=== PATIENT | male | born 1965 | race Caucasian/White ===

== ENCOUNTER 2020-02-27 13:07 | Emergency (ER) | payer OTHER, SELFPAY ==
[2020-02-27 13:56] VITALS: BP 128/65; PULSE 81; RESP 16; TEMP 36.8; O2SAT 96; BMI 36.3
--- NOTE | 2020-02-27 14:15 | ED.URI ---
HPI - URI/Sore Throat General Chief Complaint: Upper Respiratory Symptoms Stated Complaint: sob,chest discomfort Time Seen by Provider: 02/27/20 14:15 Source: patient Mode of arrival: ambulatory Limitations: no limitations History of Present Illness MD elicited complaint: cough and other (chest tightness) Pertinent past history: asthma Onset (ago): day(s) (2) Consistency: constant Severity: moderate Description of mucous: clear Able to tolerate fluids by mouth: Yes Exacerbating factors: nothing Relieving factors: other (nebulizer) Context: sick contacts (family member unknown if they have COVID but exposed at work) Associated symptoms: cough, chest pain and shortness of breath Treatments prior to arrival: none Related Data Home Medications Medication Instructions Recorded Confirmed acetaminophen 500 mg capsule 500 mg PO Q6H PRN 01/28/20 01/28/20 diphenhydramine HCl 25 mg capsule 25 mg PO Q6H PRN 01/28/20 01/28/20 Previous Rx's Medication Instructions Recorded albuterol sulfate 90 mcg/actuation 2 puff INHALATION Q4-6H PRN 30 02/20/20 aerosol inhaler Days #8.5 g clonazepam 1 mg tablet 1 mg PO DAILY PRN 30 Days #30 tab 02/20/20 fluoxetine 20 mg capsule 20 mg PO DAILY 30 Days #30 cap 02/20/20 omeprazole 20 mg capsule,delayed 20 mg PO DAILY 30 Days #30 cap 02/20/20 release risperidone 1 mg tablet 1 mg PO BID 30 Days #60 tab 02/20/20 sildenafil 100 mg tablet 100 mg PO DAILY PRN 30 Days #10 tab 02/20/20 prednisone 40 mg PO DAILY 5 Days #10 tab 02/27/20 Allergies Allergy/AdvReac Type Severity Reaction Status Date / Time codeine [CODEINE] Allergy Intermediate RASH, Verified 02/12/20 14:08 shortness of breath ibuprofen [IBUPROFEN] Allergy Intermediate RASH/HIVES, Verified 02/12/20 14:08 redness and itching latex Allergy Unknown redness Verified 02/12/20 14:08 and itching Review of Systems Review of Systems: Constitutional : No Fever, No Chills ENT/Mouth : No sore throat, No Rhinorrhea, No Swallowing Difficulty Eyes: No Eye Pain, No Swelling, No Redness Cardiovascular : pos Chest Pain, positive SOB, No Orthopnea, no Edema Respiratory : No Cough, No Sputum, No Wheezing, positive dyspnea Gastrointestinal : No Nausea, No Vomiting, No Diarrhea, No abdominal Pain, No Hematochezia, No Melena Genitourinary : No Dysuria, No Urinary Frequency, No Hematuria Musculoskeletal : No joint pain, No Myalgias Skin : No Skin Lesions, No rash Neuro : No Weakness, No Numbness, No Dizziness, No Headache Psych : No Anxiety/Panic, No Depression Heme/Lymph: No Bruising, No Lymphadenopathy Endocrine : No Polyuria, No Polydipsia All other systems reviewed and are negative [facility] Past Medical History Attestation statement: The following information was validated with the patient. Medical History Anxiety Bipolar disorder Chronic low back pain Contusion of right lower leg, sequela Erectile dysfunction Genital herpes GERD (gastroesophageal reflux disease) Surgical History History of inguinal hernia repair Family History Family History Father Medical history unknown Mother Chronic mental illness Schizophrenia Family/Other FH: mental illness Social History Social History Smoking Status: Current every day smoker Cigarettes Per Day: 5 Substance Use Type: Marijuana Substance Use Frequency: Daily Advance Directives: No Advance Directives Information Provided: No Physical Exam Vital Signs: Vital Signs: Last Vital Signs Temp 98.4 F 02/27/20 15:45 Pulse 81 02/27/20 13:56 Resp 16 02/27/20 15:45 BP 147/74 H 02/27/20 15:45 Pulse Ox 96 02/27/20 15:45 Body Mass Index 36.3 Appearance: Alert. Oriented X3. No acute distress. Eyes: Pupils equal, round and reactive to light. ENT: Pharynx normal. Neck: Normal inspection. Neck supple. CVS: Normal heart rate and rhythm. Pulses normal. Respiratory: No respiratory distress. Breath sounds slightly decreased Abdomen: Soft and nontender. Skin: Skin warm and dry. Normal skin color. Normal skin turgor. Extremities: No lower extremity edema. No calf ttp Neuro: Oriented X 3. No motor deficit. No sensory deficit. Course Course Course Narrative: no acute findings at this time stable for DC [facility] - URI/Sore Throat MDM Narrative Medical decision making narrative: 54 yo male with hx of asthma possible COVID contacts - will need troponin, CXR< EKG, covid swab, start on steroids given reports of increased asthma - dispo per results and findings Lab Data Result diagrams: 02/27/20 15:26 02/27/20 15:26 Labs: Lab Results 02/27/20 02/27/20 02/27/20 Range/Units 15:26 15:26 15:26 WBC 9.0 (4.8-10.8) X10*3/uL RBC 5.71 (4.60-5.80) X10*6/uL Hgb 17.5 (14.0-18.0) g/dl Hct 51.8 (42-52) % MCV 90.7 (80-98) fL MCH 30.6 (27.0-33.0) pg MCHC 33.8 (31.0-36.0) g/dl RDW 12.7 (11.0-16.0) % Plt Count 264 (160-400) X10*3/uL MPV 9.2 L (9.4-12.4) fL Immature Gran % (Auto) 0.2 (0.0-0.4) % Neut % (Auto) 69.8 (45-73) % Lymph % (Auto) 18.2 L (20-40) % [place] % (Auto) 10.0 (2-11) % Eos % (Auto) 1.0 (0-4) % Baso % (Auto) 0.8 (0-2) % Lymph # (Auto) 1.6 (1.2-4.9) X10*3/uL [place] # (Auto) 0.9 (0.1-1.2) X10*3/uL Eos # (Auto) 0.1 (0.0-0.4) X10*3/uL Baso # (Auto) 0.1 (0.0-0.2) X10*3/uL Abs Immat Gran (auto) 0.02 (0.00-0.03) X10*3/uL Absolute Neuts (auto) 6.3 (2.0-8.3) X10*3/uL Absolute Nucleated RBC 0.000 (0.0-0.012) X10*3/uL Nucleated RBC % (auto) 0.0 (0.0-0.2) /100WBC Hold Blue Top SEE NOTE Sodium 137 (135-145) mmol/L Potassium 4.2 (3.3-5.1) mmol/l Chloride 106 (96-108) mmol/L Carbon Dioxide 23 (22-29) mmol/L Anion Gap 12 (12-20) BUN 10 (9-16) mg/dL Creatinine 0.96 (0.5-1.4) mg/dL Estim Creat Clear Calc 100.7 Estimated GFR > 60 Random Glucose 101 (60-115) mg/dL Calcium 9.0 (8.4-10.2) mg/dL Troponin I High Sens (<3.5-35.0) ng/L 02/27/20 Range/Units 15:26 WBC (4.8-10.8) X10*3/uL RBC (4.60-5.80) X10*6/uL Hgb (14.0-18.0) g/dl Hct (42-52) % MCV (80-98) fL MCH (27.0-33.0) pg MCHC (31.0-36.0) g/dl RDW (11.0-16.0) % Plt Count (160-400) X10*3/uL MPV (9.4-12.4) fL Immature Gran % (Auto) (0.0-0.4) % Neut % (Auto) (45-73) % Lymph % (Auto) (20-40) % [place] % (Auto) (2-11) % Eos % (Auto) (0-4) % Baso % (Auto) (0-2) % Lymph # (Auto) (1.2-4.9) X10*3/uL [place] # (Auto) (0.1-1.2) X10*3/uL Eos # (Auto) (0.0-0.4) X10*3/uL Baso # (Auto) (0.0-0.2) X10*3/uL Abs Immat Gran (auto) (0.00-0.03) X10*3/uL Absolute Neuts (auto) (2.0-8.3) X10*3/uL Absolute Nucleated RBC (0.0-0.012) X10*3/uL Nucleated RBC % (auto) (0.0-0.2) /100WBC Hold Blue Top Sodium (135-145) mmol/L Potassium (3.3-5.1) mmol/l Chloride (96-108) mmol/L Carbon Dioxide (22-29) mmol/L Anion Gap (12-20) BUN (9-16) mg/dL Creatinine (0.5-1.4) mg/dL Estim Creat Clear Calc Estimated GFR Random Glucose (60-115) mg/dL Calcium (8.4-10.2) mg/dL Troponin I High Sens < 3.5 (<3.5-35.0) ng/L ECG Data Attestation: I personally reviewed and interpreted this ECG as follows: ECG interpretation date: 02/27/20 ECG interpretation time: 15:26 Interpretation: Rate: 64 Rhythm: NSR [place]: normal Normal P waves. Normal [place]. Normal QRS complex. ST T wave : normal qTC:normal prior studies: no acute ischemia The study has been interpreted contemporaneously by me. . Discharge Plan Discharge Clinical Impression: Acute dyspnea Patient Disposition: Home, Self-Care Instructions: Chest Pain (ED), Shortness of Breath (ED) Additional Instructions: return to ED for any worsening symptoms or concerns you were tested for COVID we will call you with results in 2 to 4 days, wear a mask, socially distance your chest xray, heart markers in blood and EKG were normal Prescriptions: New prednisone 20 mg tablet 40 mg PO DAILY 5 Days Qty: 10 RF: 0 No Action albuterol sulfate 90 mcg/actuation HFA aerosol inhaler 2 puff inhalation Q4-6H PRN (Reason: shortness of breath or wheezing) 30 Days Qty: 8.5 RF: 0 fluoxetine [Prozac] 20 mg capsule 20 mg PO DAILY 30 Days Qty: 30 RF: 0 omeprazole 20 mg capsule,delayed release(DR/EC) 20 mg PO DAILY 30 Days Qty: 30 RF: 0 clonazepam 1 mg tablet 1 mg PO DAILY PRN (Reason: anxiety) 30 Days Qty: 30 RF: 0 sildenafil [Viagra] 100 mg tablet 100 mg PO DAILY PRN (Reason: sexual activity) 30 Days Qty: 10 RF: 0 risperidone [Risperdal] 1 mg tablet 1 mg PO BID 30 Days Qty: 60 RF: 0 diphenhydramine HCl 25 mg capsule 25 mg PO Q6H PRNRF: 0 acetaminophen 500 mg capsule 500 mg PO Q6H PRNRF: 0 Referrals: Keisha Leyva MD [Primary Care Provider] - 2 days (if not better) Stand Alone Forms: Work/School Release
--- NOTE | 2020-02-27 14:22 | ECG_ITS ---
Test Reason : SOB Blood Pressure : / mmHG Vent. Rate : 064 BPM Atrial Rate : 064 BPM P-R Int : 118 ms QRS Dur : 068 ms QT Int : 374 ms P-R-T Axes : 051 052 055 degrees QTc Int : 385 ms Normal sinus rhythm Normal ECG When compared with ECG of 24-JAN-2018 09:35, No significant change was found Referred By: Anita Murry Electronically Signed By:MARY LUU MD
--- NOTE | 2020-02-27 14:22 | XR_ITS ---
EXAMINATION: XR CHEST CLINICAL INFORMATION: Dyspnea. COMPARISON: 05/28/2017. TECHNIQUE: Frontal view of the chest was obtained. FINDINGS: No significant abnormality is noted involving the heart, lungs, mediastinum, bony thorax or soft tissues. XR/XR chest 1V IMPRESSION: No acute cardiopulmonary process.
[2020-02-27 15:34] LABS: MANUAL DIFF FLAG NO
[2020-02-27 15:37] LABS: Basophils Absolute Auto 0.1 X10*3/uL (0.0-0.2); Basophils Percent Auto 0.8 % (0-2); Eosinophils Absolute Auto 0.1 X10*3/uL (0.0-0.4); Hematocrit 51.8 % (42-52); Hemoglobin 17.5 g/dl (14.0-18.0); Imm Gran Abs Auto 0.02 X10*3/uL (0.00-0.03); Imm Gran Pct Auto 0.2 % (0.0-0.4); Lymphocytes Absolute Auto 1.6 X10*3/uL (1.2-4.9); Lymphocytes Percent Auto 18.2 % (20-40); Mean Corpuscular HGB Conc 33.8 g/dl (31.0-36.0); Mean Corpuscular Hemoglobin 30.6 pg (27.0-33.0); Mean Corpuscular Volume 90.7 fL (80-98); Mean Platelet Volume 9.2 fL (9.4-12.4); Monocytes Absolute Auto 0.9 X10*3/uL (0.1-1.2); Neutrophils Absolute Auto 6.3 X10*3/uL (2.0-8.3); Neutrophils Percent Auto 69.8 % (45-73); Platelet Count 264 X10*3/uL (160-400); Red Blood Count 5.71 X10*6/uL (4.60-5.80); Red Cell Distribution Width 12.7 % (11.0-16.0)
[2020-02-27] MEDS: predniSONE 20 MG TABLET 60 MG PO (15:43)
[2020-02-27 15:45] VITALS: BP 147/74; RESP 16; TEMP 36.9; O2SAT 96
[2020-02-27 16:01] LABS: Anion Gap 12 (12-20); Blood Urea Nitrogen 10 mg/dL (9-16); Carbon Dioxide 23 mmol/L (22-29); Chloride 106 mmol/L (96-108); Creatinine Clr Calc Pharmacy 100.7; Estimated Glomerular Filt Rate > 60; Glucose Random 101 mg/dL (60-115); Potassium 4.2 mmol/l (3.3-5.1); Sodium 137 mmol/L (135-145)
[2020-02-27 16:09] LABS: Troponin-I High Sensitivity < 3.5 ng/L (<3.5-35.0)
== END 2020-02-27 16:48 | disposition home or self-care (01) ==
PROVIDERS: Emergency Provider Emergency Medicine; PCP Internal Medicine
DX: R05 Cough (principal); R06.02 Shortness of breath; F12.90 Cannabis use, unspecified, uncomplicated; Z20.828 Contact with and (suspected) exposure to other viral communicable diseases; Z79.899 Other long term (current) drug therapy; F17.200 Nicotine dependence, unspecified, uncomplicated; Z71.6 Tobacco abuse counseling
CPT/HCPCS: 36415; 71045; 80048; 84484; 85025; 93005; 99283; 99284; U0003

== ENCOUNTER → 2020-05-29 09:38 | Outpatient (BNVA) | payer OTHER, SELFPAY | PROVIDERS: PCP Internal Medicine; Visit Provider Nurse Practitioner | DX: Z76.89 Persons encountering health services in other specified circumstances (principal) | CPT/HCPCS: Q3014 ==

== ENCOUNTER 2020-06-04 12:00 | Outpatient (REF) | payer OTHER, SELFPAY ==
--- NOTE | ~2020-06-04 | XR_ITS ---
EXAMINATION: XR KNEE, RIGHT CLINICAL INFORMATION: Pain in right knee COMPARISON: None TECHNIQUE: AP and lateral views of the right knee. FINDINGS: No fracture or dislocation. Increased suprapatellar soft tissue density is likely overlying soft tissues rather than a joint effusion. Medial and lateral compartment joint spaces are maintained. XR/XR knee RT 2V IMPRESSION: No acute osseous abnormality of the right knee.
--- NOTE | ~2020-06-04 | XR_ITS ---
EXAMINATION: XR CERVICAL SPINE CLINICAL INFORMATION: Cervicalgia COMPARISON: CT scan 10/04/2010 TECHNIQUE: 3 views of the cervical spine were obtained. FINDINGS: Dens is intact. Lateral masses are normally positioned. Lung apices are clear. Normal sagittal alignment. Normal prevertebral soft tissues. Mild loss of disc height at C5-C6 and C6-C7. Anterior disc calcification at these levels as well. No fracture or dislocation seen. XR/XR cervical spine 2V IMPRESSION: Degenerative disc disease at C5-C6 and C6-C7, new/progressed since 2010.
== END 2020-06-04 12:01 | disposition home or self-care (01) ==
LOC: HO.XRAY 12:00
PROVIDERS: PCP Nurse Practitioner Family; Visit Provider Nurse Practitioner Family
DX: M25.561 Pain in right knee (principal); M54.2 Cervicalgia
CPT/HCPCS: 72040; 73560

== ENCOUNTER 2020-07-01 11:55 | Outpatient (REF) | payer OTHER, SELFPAY | END 2020-07-01 11:56 | disposition home or self-care (01) | LOC: HO.LAB 11:55 | PROVIDERS: Visit Provider Internal Medicine | DX: Z20.822 Contact with and (suspected) exposure to COVID-19 (principal) | CPT/HCPCS: 36415; C9803; U0003; U0005 ==

== ENCOUNTER 2020-07-03 09:37 | Day surgery (SDC) | payer OTHER, SELFPAY ==
[2020-06-27 13:50] VITALS: BMI 33.2
--- NOTE | 2020-07-02 11:44 | P.CONAN_ITS ---
Documented by User: Indigo Packney 07/02/20 11:45 HPI - Anesthesia Eval Consult details Narrative: 54yo M for Upper Endoscopy and Colonoscopy [facility] Active Problems Active Problems: All Active Problems (Updated 06/07/20 @ 11:23 by Lucy Jewell NP) Anxiety and depression (Acute) Neurological signs (Acute) Polyarthralgia (Acute) Colon cancer screening (Acute) Knee pain, right (Acute) Cervical pain (Acute) Obesity (BMI 30-39.9) (Acute) Smoker (Acute) Epigastric pain (Acute) Right knee pain (Acute) Screening for colon cancer (Acute) Anxiety (Acute) Erectile dysfunction (Acute) GERD (gastroesophageal reflux disease) (Acute) Bipolar disorder (Acute) Genital herpes (Acute) Chronic low back pain (Acute) Status post fall (Acute) Strain of lumbar region (Acute) Thoracic myofascial strain (Acute) Contusion of right lower leg, sequela (Acute) Past Medical History Medical History Anxiety Anxiety and depression Bipolar disorder Cervical pain Chronic low back pain Contusion of right lower leg, sequela Epigastric pain Erectile dysfunction Genital herpes GERD (gastroesophageal reflux disease) Knee pain, right Neurological signs Obesity (BMI 30-39.9) Polyarthralgia Right knee pain Smoker Family History Family History Father Medical history unknown Mother Chronic mental illness Schizophrenia Diabetes Kidney problem Dialysis patient Family/Other FH: mental illness Surgical History Surgical History History of inguinal hernia repair Social History Social History Are you a primary healthcare marketer to a significant other at home: No Do you presently have visiting nurse or other home services: No Alcohol intake: never Smoking Status: Current every day smoker Tobacco Type: Cigarette Cigarettes Per Day: 1 Years Smoked: 40 Smoked in Last 30 Days: Yes Use of substances other than those prescribed or required for medical reasons: Yes Substance Use Type: Marijuana Substance Use Frequency: Daily Have you been hit, kicked, punched, or otherwise hurt by someone within the past year? If so, by whom?: No Advance Directives Information Provided: No Recently lost weight without trying: No Meds Allergies Allergy/AdvReac Type Severity Reaction Status Date / Time codeine [CODEINE] Allergy Intermediate RASH, Verified 05/29/20 09:39 shortness of breath ibuprofen [IBUPROFEN] Allergy Intermediate RASH/HIVES, Verified 05/29/20 09:39 redness and itching latex Allergy Intermediate redness Verified 06/27/20 13:53 and itching Home Medications Medication Instructions Recorded Confirmed Last Taken Type acetaminophen 500 mg capsule 500 mg PO Q6H PRN 01/28/20 06/27/20 Unknown History diphenhydramine HCl 25 mg capsule 25 mg PO Q6H PRN 01/28/20 06/27/20 Unknown Hi story ketorolac 0.5 % eye drops 0 drp OPHTHALMIC (EYE) 05/29/20 06/07/20 Unknown History Exam Exam Date and Time: July 02, 2020 1144 Height,Weight and Vital Signs: Height 5 ft 6 in Weight 93.44 kg Narrative Narrative: EKG 02/2020 Normal sinus rhythm Normal ECG When compared with ECG of 24-JAN-2018 09:35, No significant change was found Assessment and Plan Assessment Anesthesia Assessment: Chart Reviewed Documented by User: Meka Edmondson 07/03/20 10:08 [facility] Past Medical History Medical History Anxiety Anxiety and depression Bipolar disorder Cervical pain Chronic low back pain Contusion of right lower leg, sequela Epigastric pain Erectile dysfunction Genital herpes GERD (gastroesophageal reflux disease) Knee pain, right Neurological signs Obesity (BMI 30-39.9) Polyarthralgia Right knee pain Smoker Family History Family History Father Medical history unknown Mother Chronic mental illness Schizophrenia Diabetes Kidney problem Dialysis patient Family/Other FH: mental illness Surgical History Surgical History History of inguinal hernia repair Social History Social History Are you a primary healthcare marketer to a significant other at home: No Do you presently have visiting nurse or other home services: No Alcohol intake: never Smoking Status: Current every day smoker Tobacco Type: Cigarette Cigarettes Per Day: 1 Years Smoked: 40 Smoked in Last 30 Days: Yes Use of substances other than those prescribed or required for medical reasons: Yes Substance Use Type: Marijuana Substance Use Frequency: Daily Have you been hit, kicked, punched, or otherwise hurt by someone within the past year? If so, by whom?: No Advance Directives Information Provided: No Recently lost weight without trying: No Meds Allergies Allergy/AdvReac Type Severity Reaction Status Date / Time codeine [CODEINE] Allergy Intermediate RASH, Verified 05/29/20 09:39 shortness of breath ibuprofen [IBUPROFEN] Allergy Intermediate RASH/HIVES, Verified 05/29/20 09:39 redness and itching latex Allergy Intermediate redness Verified 06/27/20 13:53 and itching Home Medications Medication Instructions Recorded Confirmed Last Taken Type acetaminophen 500 mg capsule 500 mg PO Q6H PRN 01/28/20 06/27/20 Unknown History diphenhydramine HCl 25 mg capsule 25 mg PO Q6H PRN 01/28/20 06/27/20 Unknown History ketorolac 0.5 % eye drops 0 drp OPHTHALMIC (EYE) 05/29/20 06/07/20 Unknown History Exam Airway Mallampati Class: I TM Dist: >3cm Loose/Missing/Broken Teeth: No Heart: RRR Lungs: CTA Assessment and Plan Assessment Anesthesia Assessment: Anesthesia Plan Discussed and Chart Reviewed Final Anesthetic Review NPO: Yes ASA Class: II Final Preanesthetic Review: No Changes in Pt Med Stat, Meds/Allgs Chart Reviewed and Consent Obtained/Reviewed Patient Risk: Low Procedure Risk: Intermediate Anesthetic Plan Anesthetic Plan: MAC: Disposition: Standard PACU
[2020-07-03] VITALS (10 sets, daily range): BP systolic 83–115; BP diastolic 42–66; PULSE 57–67; RESP 16–18; TEMP 36.3–36.7; O2SAT 96–98
[2020-07-03] MEDS: Lactated Ringers 1,000 ML 100 ML IVCONT (10:05)
--- NOTE | 2020-07-03 10:30 | MHC.SHP ---
Pre-Procedural Eval Section B Chief Complaint: Screening, Epigastric Pain Relevant Family History (Specify if Yes): No Relevant Social History: Tobacco Use Present Medications: see Short Stay Collaborative assessment Medical History: Significant History (weight loss; abdominal pain) History of Previous Operations: No relevant previous surgery Allergies: Allergies Allergy/AdvReac Type Severity Reaction Status Date / Time codeine [CODEINE] Allergy Intermediate RASH, Verified 05/29/20 09:39 shortness of breath ibuprofen [IBUPROFEN] Allergy Intermediate RASH/HIVES, Verified 05/29/20 09:39 redness and itching latex Allergy Intermediate redness Verified 06/27/20 13:53 and itching Review of Systems Sugical H&P ROS: Negative: Cardiovascular, Respiratory, Integumentary and Endocrine and Yes, Specify: Constitution (weight loss) and Gastrointestinal (pain) Exam Surgical H&P Exam: Normal: HEENT, Normal: Heart, Normal: Lungs, Normal: Extremities, Normal: Abdomen, Normal: Skin and Normal: Neurological Plan Diagnosis/Plan: Unchanged I have reviewed the history and physical and performed a pertinent physical examination on my patient. No changes have occurred unless specified.yes
--- NOTE | 2020-07-03 11:15 | PM.OP ---
Brief Operative Note Date of Service: 07/03/20 Pre-op diagnosis: EGD: pain, weight loss>50#; Colon cancer screening. Post-op diagnosis: other (Superficial gastritis; Colon polyp) Procedure: EGD w/ bx; [place]: polyp excisional Implants: none Surgeon: Zahraa Moulton MD Anesthesia: MAC (Rocco Hanna CRNA) Estimated blood loss (mL): 5 Pathology: other (Random gastric, polyp) Condition: stable Disposition: PACU
--- NOTE | 2020-07-03 13:47 | W.PM.OPN ---
Operative Note Operative Note Date of Service: 07/03/20 Narrative: Pre-op diagnosis: EGD: pain, weight loss>50#; Colon cancer screening. Post-op diagnosis: other (Superficial gastritis; Colon polyp) Procedure: EGD w/ bx; [place]: polyp excisional Implants: none Surgeon: Zahraa Moulton MD Anesthesia: MAC (Rocco Hanna CRNA) FINDINGS: EGD:Video endoscope was introduced with no difficulty. Arytenoid cartilages appeared mildly edematous-minimal erythema. Esophageal mucosa was normal. GE junction was clear and distinct. On entering the stomach there was mild erythema of the body and antrum. Random gastric bx were obtained. Duodenal bulb and duodenum were normal. Scope was withdrawn patient; tolerated procedure well. COLO: MARY: Slight decrease sphincter tone. Prostate was normal. Adult slim colonoscope was introduced without difficulty, navigated through sigmoid, descending, transverse, ascending colon into the cecum. Appendiceal orifice was seen, ileocecal valve was seen. No lesions noted. PREP: Good to excellent. Withdrawing scope slowly, one flat polyp was identified and removed in the region rectosigmoid--18-20 cm. Removal was excisional with use cold bx forceps. ARV was clear. Estimated blood loss (mL): 5 Pathology: other (Random gastric; colon polyp) Condition: stable Disposition: PACU PLAN: Nothing noted on this exam explains patient's weight loss. Review of record available had shown no anemia, no other abnormalities. I do not see that abd CT has been done. Would like to see imaging of the pancreas, small bowel, repeat labs. He could have visceral hyperalgesia (seen in some pt with Bipolar disorder.) This is a dx of exclusion.) He will need in office followup. Repeat colon cancer screening to be considered in 5 years.
== END 2020-07-03 12:41 | disposition home or self-care (01) ==
PROVIDERS: PCP Nurse Practitioner Family; Visit Provider Internal Medicine Gastroenterology
PROC: (CPT 45380; principal; 2020-07-03 10:10)
DX: Z12.11 Encounter for screening for malignant neoplasm of colon (principal); K63.5 Polyp of colon; K29.30 Chronic superficial gastritis without bleeding; K21.9 Gastro-esophageal reflux disease without esophagitis; R63.4 Abnormal weight loss; F31.9 Bipolar disorder, unspecified; Z79.899 Other long term (current) drug therapy; Z91.040 Latex allergy status; Z88.8 Allergy status to other drugs, medicaments and biological substances; F17.210 Nicotine dependence, cigarettes, uncomplicated; F12.90 Cannabis use, unspecified, uncomplicated
CPT/HCPCS: 45380; 43239; 88305; 88342; J3010

== ENCOUNTER 2020-07-24 08:15 | Outpatient (REF) | payer OTHER, SELFPAY ==
[2020-07-24 09:38] LABS: Glucose Urine UA NEG (NEG); Leukocyte Esterase Urine NEG (NEG); Nitrite Urine NEG (NEG); PH 6.5 (5.0-8.0); Specific Gravity - Urine 1.025 (1.005-1.025); Urine Blood NEG (NEG); Urine Ketones NEG (NEG); Urine Protein NEG (NEG-TRACE)
[2020-07-24 09:43] LABS: MANUAL DIFF FLAG NO
[2020-07-24 09:45] LABS: Appearance Urine CLEAR; Color Urine YELLOW
[2020-07-24 09:49] LABS: Basophils Absolute Auto 0.1 X10*3/uL (0.0-0.2); Basophils Percent Auto 0.9 % (0-2); Eosinophils Absolute Auto 0.3 X10*3/uL (0.0-0.4); Eosinophils Percent Auto 3.2 % (0-4); Hematocrit 50.9 % (42-52); Hemoglobin 16.8 g/dl (14.0-18.0); Imm Gran Abs Auto 0.02 X10*3/uL (0.00-0.03); Imm Gran Pct Auto 0.2 % (0.0-0.4); Lymphocytes Absolute Auto 2.4 X10*3/uL (1.2-4.9); Mean Corpuscular Hemoglobin 30.9 pg (27.0-33.0); Mean Corpuscular Volume 93.7 fL (80-98); Mean Platelet Volume 9.9 fL (9.4-12.4); Monocytes Percent Auto 12.5 % (2-11); Neutrophils Absolute Auto 4.3 X10*3/uL (2.0-8.3); Neutrophils Percent Auto 53.2 % (45-73); Platelet Count 260 X10*3/uL (160-400); Red Blood Count 5.43 X10*6/uL (4.60-5.80); Red Cell Distribution Width 12.8 % (11.0-16.0)
[2020-07-24 10:09] LABS: Alanine Aminotransferase 23 U/L (0-40); Albumin Level 4.1 g/dL (3.5-5.0); Alkaline Phosphatase 78 U/L (39-117); Anion Gap 13 (12-20); Aspartate Amino Transferase 25 U/L (5-37); Bilirubin Total 0.7 mg/dL (0.0-1.0); Blood Urea Nitrogen 10 mg/dL (9-16); Carbon Dioxide 23 mmol/L (22-29); Chloride 107 mmol/L (96-108); Cholesterol 178 mg/dL; Estimated Glomerular Filt Rate > 60; Glucose Fasting 110 mg/dL (60-99); HDL Cholesterol 39 mg/dL; LDL Cholesterol Calculated 122 mg/dl; Potassium 3.9 mmol/L (3.3-5.1); Sodium 139 mmol/L (135-145); Total Protein 6.6 g/dL (6.5-8.0); Triglycerides 87 mg/dL
[2020-07-24 10:21] LABS: TSH reflex Free T4 0.79 uIU/mL (0.32-4.0)
== END 2020-07-24 08:16 | disposition home or self-care (01) ==
LOC: HO.LAB 08:15
PROVIDERS: PCP Internal Medicine; Visit Provider Internal Medicine
DX: K29.30 Chronic superficial gastritis without bleeding (principal); R63.4 Abnormal weight loss; R10.13 Epigastric pain; E78.2 Mixed hyperlipidemia; K21.9 Gastro-esophageal reflux disease without esophagitis; E66.9 Obesity, unspecified; F17.210 Nicotine dependence, cigarettes, uncomplicated; Z88.5 Allergy status to narcotic agent; Z88.6 Allergy status to analgesic agent; Z91.040 Latex allergy status
CPT/HCPCS: 36415; 80053; 80061; 81003; 84443; 85025; Q3014

== ENCOUNTER → 2020-08-06 07:54 | Outpatient (REF) | payer OTHER, SELFPAY ==
--- NOTE | ~2020-08-06 | NM_ITS ---
EXAMINATION: NM RADIONUCLIDE SOLID FOOD GASTRIC EMPTYING 4-HOUR STUDY CLINICAL INFORMATION: Pain COMPARISON: None TECHNIQUE: A standard meal consisting of 4 oz of Egg Beaters brand tagged with 750 microcuries Tc-99m Sulfur Colloid, 8 oz water and 2 slices of toast with jelly was administered orally to the patient. Images were obtained using a dual head gamma camera in the anterior and posterior projections over of the stomach immediately post ingestion and at hourly intervals up to 4 hours post ingestion. The anterior and posterior counts at each time interval were averaged using the geometric mean and expressed as percentage of the immediate post ingestion counts. FINDINGS: There is good visualization of activity in the stomach immediately post ingestion. As the study progresses, there is good clearance of activity from the stomach and visualization of progressively increasing small bowel activity. By the end of the study, there is almost no retention noted in the stomach. Retention in the stomach at each time interval was: 1 hour 54% (normal 37%-90%) 2 hours 17% (normal 30%-60%) 3 hours 4% 4 hour image not obtained NM/NM gastric emptying study IMPRESSION: Prompt gastric emptying. No scintigraphic evidence for delayed gastric emptying
== END ==
LOC: HO.NUCMED 07:54
PROVIDERS: PCP Internal Medicine; Visit Provider Nurse Practitioner
DX: R10.13 Epigastric pain (principal)
CPT/HCPCS: 78264; A9541

== ENCOUNTER → 2020-08-13 10:15 | Outpatient (BNVA) | payer OTHER, SELFPAY | PROVIDERS: PCP Internal Medicine; Visit Provider Nurse Practitioner ==

== ENCOUNTER → 2020-08-15 14:05 | Outpatient (BNVA) | payer OTHER, SELFPAY | PROVIDERS: PCP Internal Medicine; Visit Provider Internal Medicine Endocrinology, Diabetes & Metabolism | DX: R63.4 Abnormal weight loss (principal) | CPT/HCPCS: 99202 ==

== ENCOUNTER 2020-08-16 07:31 | Outpatient (REF) | payer OTHER, SELFPAY ==
[2020-08-16 09:45] LABS: Prostate Specific Antigen Scr 0.19 ng/mL (<0.05-4.0)
[2020-08-16 09:51] LABS: Free T4 (Free Thyroxine) 0.91 ng/dL (0.71-1.85); Thyroid Stimulating Hormone 1.19 uIU/mL (0.32-4.0)
[2020-08-17 08:17] LABS: Follicle Stimulating Hormone 9.3 mIU/mL (1.6-8.0); Prolactin 22.9 ng/mL (2.0-18.0); Triiodothyronine T3 Total 97 ng/dL (76-181)
[2020-08-18 15:17] LABS: DHEA Sulfate 205 mcg/dL (38-313); Sex Hormone Binding Globulin 46 nmol/L (10-50)
[2020-08-18 21:41] LABS: Adrenocorticotropic Hormone 112 pg/mL (6-50)
[2020-08-18 22:57] LABS: Gliadin Deamidated IgA Ab 20 Units; Gliadin Deamidated IgG Ab 5 Units
[2020-08-21 16:11] LABS: Testosterone, Free 76.8 pg/mL (35.0-155.0); Testosterone, Total 526 ng/dL (250-1100)
[2020-08-22 14:22] LABS: IGF-1 (Somatomedin C) 80 ng/mL (50-317); IGF-1 Z Score (Male) -1.1 SD (-2.0 - +2.0)
[2020-08-26 11:37] LABS: Endomysial IgA Antibody Negative (Negative)
== END 2020-08-16 07:32 | disposition home or self-care (01) ==
LOC: HO.LAB 07:31
PROVIDERS: Internal Medicine; Absent Provider Internal Medicine; PCP Internal Medicine; Visit Provider Internal Medicine Endocrinology, Diabetes & Metabolism
DX: Z12.5 Encounter for screening for malignant neoplasm of prostate (principal); R63.4 Abnormal weight loss; N52.9 Male erectile dysfunction, unspecified
CPT/HCPCS: 36415; 82024; 82533; 82627; 83001; 83002; 83516; 84146; 84153; 84270; 84305; 84402; 84403; 84439; 84443; 84480; 86255; 86256

== ENCOUNTER 2020-08-27 07:55 | Outpatient (REF) | payer OTHER, SELFPAY ==
[2020-08-28 08:16] LABS: Prolactin 19.3 ng/mL (2.0-18.0)
[2020-08-28 22:52] LABS: Adrenocorticotropic Hormone 89 pg/mL (6-50)
== END 2020-08-27 07:56 | disposition home or self-care (01) ==
LOC: HO.LAB 07:55
PROVIDERS: PCP Internal Medicine; Visit Provider Internal Medicine Endocrinology, Diabetes & Metabolism
DX: R63.4 Abnormal weight loss (principal)
CPT/HCPCS: 36415; 82024; 82533; 84146

== ENCOUNTER 2020-09-03 12:45 | Outpatient (REF) | payer OTHER, SELFPAY ==
--- NOTE | ~2020-09-03 | XR_ITS ---
EXAMINATION: XR CHEST CLINICAL INFORMATION: Abnormal weight loss COMPARISON: Previous chest x-ray most recent February [address] March 2018 TECHNIQUE: 2 views of the chest were obtained. FINDINGS: The cardiac and mediastinal contours are normal. The lungs are clear. There is no pleural effusion or pneumothorax. Bony structures are normal. XR/XR chest 2V IMPRESSION: Unremarkable examination.
== END 2020-09-03 12:46 | disposition home or self-care (01) ==
LOC: HO.XRAY 12:45
PROVIDERS: PCP Internal Medicine; Visit Provider Internal Medicine
DX: R63.4 Abnormal weight loss (principal); R68.81 Early satiety; F17.200 Nicotine dependence, unspecified, uncomplicated
CPT/HCPCS: 71046

== ENCOUNTER 2020-09-12 07:19 | Outpatient (REF) | payer OTHER, SELFPAY ==
[2020-09-15 18:42] LABS: Gliadin Deamidated IgA Ab 20 Units; Gliadin Deamidated IgG Ab 5 Units
[2020-09-17 12:26] LABS: Dexamethasone 556 ng/dL
[2020-09-18 12:21] LABS: Endomysial IgA Antibody Negative (Negative)
[2020-09-18 23:21] LABS: Adrenocorticotropic Hormone <5 pg/mL (6-50)
== END 2020-09-12 07:20 | disposition home or self-care (01) ==
LOC: HO.LAB 07:19
PROVIDERS: PCP Internal Medicine; Visit Provider Internal Medicine Endocrinology, Diabetes & Metabolism
DX: E27.0 Other adrenocortical overactivity (principal); R68.81 Early satiety; R63.4 Abnormal weight loss
CPT/HCPCS: 36415; 80299; 82024; 82533; 83516; 86255; 86256

== ENCOUNTER 2020-09-23 18:15 | Outpatient (REF) | payer OTHER, SELFPAY ==
--- NOTE | ~2020-09-23 | MR_ITS ---
EXAMINATION: MR CERVICAL SPINE WITHOUT CONTRAST CLINICAL INFORMATION: Cervical disc disorder. Self-reported bilateral upper extremity pain. COMPARISON: Cervical spine radiographs 06/04/2020. Report CT cervical spine 10/04/2020. MRI brain 07/23/2020. TECHNIQUE: MRI of the cervical spine was obtained using routine sequences without contrast. FINDINGS: VERTEBRAL BODIES AND PARASPINAL SOFT TISSUES: Straightening of the normal cervical lordosis is noted. No suspicious marrow abnormalities or vertebral body compression deformities are identified. Partial visualization is made of a well-circumscribed rounded T2 hyperintensity measuring 1.4 cm in diameter in the region of the right parasagittal nasopharynx which may represent a prominent mucosal retention cyst. CERVICOMEDULLARY JUNCTION AND VISUALIZED POSTERIOR FOSSA: Normal. SPINAL LEVELS: C2-C3: No central or foraminal stenoses. Normal intervertebral disc height. C3-C4: Mild central stenosis secondary to a mild posterior broad-based disc-osteophyte complex. C4-C5: Moderate central stenosis secondary to a moderate posterior broad-based disc-osteophyte complex partially effacing the ventral thecal sac CSF space associated with posterior displacement and mild AP deformation of the adjacent spinal cord without direct spinal cord impingement. C5-C6: Marked bilateral foraminal stenoses. Moderate central stenosis. Findings arise in the setting of a moderate posterior broad-based disc-osteophyte complex with bilateral uncovertebral joint incorporation and approximately 75% bilateral foraminal stenoses in association with mild bilateral facet hypertrophic changes. Approximately 50-75% overall loss of intervertebral disc height is noted. C6-C7: Moderate bilateral foraminal stenoses. Mild central stenosis. Findings arise in the setting of a moderate posterior broad-based disc-osteophyte complex with approximately 50% bilateral foraminal narrowing and minimal effacement of the ventral thecal sac CSF space. Approximately 50-75% overall loss of intervertebral disc height is noted. C7-T1: No central or foraminal stenoses. Minimal bilateral uncovertebral joint disc-osteophyte complexes. MR/MR cervical spine wo con IMPRESSION: 1. Multilevel chronic spondylosis of the cervical spine with significant findings as noted below. 2. C5-C6 marked bilateral foraminal stenoses with probable bilateral C6 nerve root impingement. 3. C6-C7 moderate bilateral foraminal stenoses with possible bilateral C7 nerve root impingement. 4. C4-C5 and C5-C6 moderate central stenoses without direct spinal cord impingement.
--- NOTE | ~2020-09-23 | MR_ITS ---
EXAMINATION: MR LUMBAR SPINE WITHOUT CONTRAST CLINICAL INFORMATION: Low back pain. COMPARISON: Lumbar spine radiographs 10/08/2019. MRI lumbar spine 09/26/2013. TECHNIQUE: MRI of the lumbar spine was obtained using routine sequences without contrast. FINDINGS: VERTEBRAL BODIES AND PARASPINAL STRUCTURES: 4 lumbar-type vertebral bodies are identified with partial bilateral sacralization of the presumed L5 vertebral body. Vertebral body height, alignment and marrow signal are normal in appearance aside from minimal multilevel anterior endplate discogenic marrow changes. CONUS MEDULLARIS AND CAUDA EQUINA: Normal, terminating at the level of T12. SPINAL LEVELS: T12-L1: Normal L1-L2: Normal L2-L3: Normal L3-L4: Mild bilateral parasagittal, intraforaminal and extraforaminal disc protrusions slightly increased in size compared with 09/26/2013 resulting in mild (less than 50%) bilateral foraminal narrowing with minimal abutment upon the left and right L3 dorsal root ganglia (series 5 image 13). Additionally, mild bilateral ligamentum flavum hypertrophy is noted. L4-L5: No change compared with 09/26/2013. Minimal posterior broad-based disc bulge. L5-S1: No change compared with 09/26/2013. Minimal posterior broad-based disc bulge. MR/MR lumbar spine wo con IMPRESSION: L3-L4 mild bilateral parasagittal, intraforaminal and extraforaminal disc protrusions slightly increased in size compared with 09/26/2013 resulting in mild bilateral L3 dorsal root ganglion impingement. Elsewhere in the lumbar spine, minimal multilevel chronic spondylosis is present and unchanged compared with 09/26/2013.
== END 2020-09-23 18:16 | disposition home or self-care (01) ==
LOC: HO.MRI 18:15
PROVIDERS: PCP Internal Medicine; Visit Provider Internal Medicine
DX: M50.90 Cervical disc disorder, unspecified, unspecified cervical region (principal); M54.5 Low back pain; G89.29 Other chronic pain; R63.4 Abnormal weight loss
CPT/HCPCS: 72141; 72148

== ENCOUNTER → 2020-09-25 10:09 | Outpatient (BNVA) | payer OTHER, SELFPAY | PROVIDERS: PCP Internal Medicine; Visit Provider Nurse Practitioner | DX: K63.89 Other specified diseases of intestine (principal) | CPT/HCPCS: 99212 ==

== ENCOUNTER 2020-10-01 18:15 | Emergency (ER) | payer OTHER, SELFPAY ==
--- NOTE | ~2020-10-01 | XR_ITS ---
EXAMINATION: XR CHEST CLINICAL INFORMATION: Shortness of breath COMPARISON: Multiple prior chest radiographs dating back to 05/28/[address] dated 03/14/2018. TECHNIQUE: Frontal view of the chest was obtained. FINDINGS: There is some minimal left basilar atelectasis is present but no other significant abnormality is noted involving the heart, lungs, mediastinum, bony thorax or soft tissues. XR/XR chest 1V IMPRESSION: Unremarkable examination. Minimal left basilar atelectasis.
[2020-10-01 18:31] VITALS: BP 117/67; PULSE 76; RESP 18; TEMP 36.6; O2SAT 99; BMI 29.8
--- NOTE | 2020-10-01 18:37 | ECG_ITS ---
Test Reason : REACTION TO MEDS Blood Pressure : / mmHG Vent. Rate : 065 BPM Atrial Rate : 065 BPM P-R Int : 122 ms QRS Dur : 080 ms QT Int : 364 ms P-R-T Axes : 045 055 053 degrees QTc Int : 378 ms Normal sinus rhythm Early repolarization Normal ECG When compared with ECG of 27-FEB-2020 15:16, No significant change was found Referred By: Generic ED Physician Electronically Signed By:Cornelius Mejia
[2020-10-01 19:20] LABS: MANUAL DIFF FLAG NO
[2020-10-01 19:24] LABS: Basophils Absolute Auto 0.1 X10*3/uL (0.0-0.2); Basophils Percent Auto 0.5 % (0-2); Eosinophils Absolute Auto 0.2 X10*3/uL (0.0-0.4); Eosinophils Percent Auto 2.4 % (0-4); Hematocrit 45.1 % (42-52); Hemoglobin 15.1 g/dl (14.0-18.0); Imm Gran Abs Auto 0.05 X10*3/uL (0.00-0.03); Imm Gran Pct Auto 0.5 % (0.0-0.4); Lymphocytes Absolute Auto 1.5 X10*3/uL (1.2-4.9); Lymphocytes Percent Auto 15.6 % (20-40); Mean Corpuscular HGB Conc 33.5 g/dl (31.0-36.0); Mean Corpuscular Hemoglobin 31.4 pg (27.0-33.0); Mean Corpuscular Volume 93.8 fL (80-98); Mean Platelet Volume 9.4 fL (9.4-12.4); Monocytes Absolute Auto 0.9 X10*3/uL (0.1-1.2); Neutrophils Absolute Auto 7.1 X10*3/uL (2.0-8.3); Platelet Count 221 X10*3/uL (160-400); Red Blood Count 4.81 X10*6/uL (4.60-5.80); Red Cell Distribution Width 13.1 % (11.0-16.0); White Blood Count 9.9 X10*3/uL (4.8-10.8)
[2020-10-01 19:51] LABS: Anion Gap 10 (12-20); Blood Urea Nitrogen 13 mg/dL (9-16); Calcium 8.9 mg/dL (8.4-10.2); Carbon Dioxide 29 mmol/L (22-29); Chloride 104 mmol/L (96-108); Creatinine Clr Calc Pharmacy 97.5; Estimated Glomerular Filt Rate > 60; Glucose Random 141 mg/dL (60-115); Potassium 4.3 mmol/L (3.3-5.1); Sodium 139 mmol/L (135-145)
[2020-10-01 19:56] LABS: B Type Natriuretic Peptide 45 pg/mL (<100); Troponin-I High Sensitivity < 3.5 ng/L (<3.5-35.0)
== END 2020-10-01 22:36 | disposition left against medical advice (07) ==
PROVIDERS: Emergency Provider Emergency Medicine; PCP Internal Medicine
DX: R51.9 Headache, unspecified (principal); H53.8 Other visual disturbances; R06.02 Shortness of breath
CPT/HCPCS: 36415; 71045; 80048; 83880; 84484; 85025; 93005; 99283

== ENCOUNTER → 2020-10-23 10:16 | Outpatient (BNVA) | payer MEDICARE, MEDICAID, SELFPAY | PROVIDERS: PCP Internal Medicine; Visit Provider Internal Medicine Endocrinology, Diabetes & Metabolism | DX: Z13.89 Encounter for screening for other disorder (principal) | CPT/HCPCS: Q3014 ==

== ENCOUNTER 2021-01-21 07:46 | Emergency (ER) | payer OTHER, SELFPAY ==
--- NOTE | ~2021-01-21 | XR_ITS ---
EXAMINATION: XR CHEST CLINICAL INFORMATION: SOB and cough. Covid exposure. COMPARISON: Chest 10/28/2020 TECHNIQUE: Frontal view of the chest was obtained. FINDINGS: The lungs are well-expanded and clear of acute process. Heart size and pulmonary vascularity is normal. No gross bony abnormality seen. XR/XR chest 1V IMPRESSION: Unremarkable chest examination.
[2021-01-21 08:00] VITALS: BP 132/72; PULSE 75; RESP 18; TEMP 36.6; O2SAT 98; BMI 32.1
--- NOTE | 2021-01-21 08:12 | ED.GENADULT ---
HPI - General Adult General Chief complaint: Upper Respiratory Symptoms Stated complaint: sore throat Time Seen by Provider: 01/21/21 07:58 Source: patient Mode of arrival: ambulatory Limitations: no limitations History of Present Illness HPI narrative: Patient comes to the emergency room complaining generalized malaise, sore throat. Patient complaining of chills, no fever. Patient states that he recently returned from floor. Patient went to visit his daughter, patient's son-in-law is currently hospitalized in [place] and about to get intubated, sick with COVID-19 Related Data Home Medications Medication Instructions Recorded Confirmed acetaminophen 500 mg capsule 500 mg PO Q6H PRN 01/28/20 10/23/20 diphenhydramine HCl 25 mg capsule 25 mg PO Q6H PRN 01/28/20 10/23/20 diphenhydramine HCl 25 mg capsule 25 mg PO Q8H PRN cap 09/25/20 10/23/20 (Banophen) Previous Rx's Medication Instructions Recorded albuterol sulfate 90 mcg/actuation 2 puff INHALATION Q4-6H PRN 30 04/13/20 aerosol inhaler Days #8.5 g cyclobenzaprine 10 mg tablet 10 mg PO BEDTIME 30 Days #30 tab 05/16/20 baclofen 10 mg tablet 10 mg PO BID PRN #60 tab 08/09/20 fluoxetine 20 mg capsule 20 mg PO DAILY 90 Days #90 cap 09/09/20 metronidazole 500 mg tablet 500 mg PO TID 10 Days #30 tab 09/25/20 (Flagyl) back brace #1 ea 10/01/20 cane #1 ea 10/01/20 miscellaneous medical supply #1 ea 10/01/20 miscellaneous medical supply 1 ea MISCELLANEOUS DAILY #1 ea 10/01/20 oxycodone 10 mg tablet 10 mg PO BID PRN 7 Days #14 tab 10/13/20 pantoprazole 40 mg tablet,delayed 40 mg PO BID #60 tab 10/21/20 release sildenafil 100 mg tablet (Viagra) 100 mg PO DAILY PRN 30 Days #10 tab 10/27/20 valacyclovir 1 gram tablet 1,000 mg PO Q8H 7 Days #21 tab 10/28/20 (Valtrex) risperidone 1 mg tablet 1 mg PO BID 90 Days #180 tab 11/05/20 clonazepam 1 mg tablet 1 mg PO DAILY PRN 30 Days #30 tab 11/09/20 amoxicillin 500 mg-potassium 1 tab PO BID #20 tab 01/21/21 clavulanate 125 mg tablet (Augmentin) Allergies Allergy/AdvReac Type Severity Reaction Status Date / Time codeine [CODEINE] Allergy Intermediate RASH, Verified 10/01/20 18:31 shortness of breath ibuprofen [IBUPROFEN] Allergy Intermediate RASH/HIVES, Verified 10/01/20 18:31 redness and itching latex Allergy Intermediate redness Verified 10/01/20 18:31 and itching Review of Systems Review of Systems: Constitutional : No Weight loss, of chills ENT/Mouth : No Hearing loss, No Ear Pain, No Nasal Congestion, No Sinus Pain, No Hoarseness, No sore throat, No Rhinorrhea, No Swallowing Difficulty, complaining of blisters in his lips Eyes: No Eye Pain, No Swelling, No Redness, No Foreign Body, No Discharge, No Vision Changes Cardiovascular : Chest pain only with coughing, at this time no coughing/shortness of breath/chest pain, No SOB, No Dyspnea on Exertion, No Orthopnea, No Edema, No Palpitations Respiratory : No Cough, No Sputum, No Wheezing, No Smoke Exposure, No Dyspnea Gastrointestinal : No Nausea, No Vomiting, No Diarrhea, No Constipation, No abdominal Pain, No Hematochezia, No Melena Genitourinary : no irregular bleeding, No Dysuria, No Urinary Frequency, No Hematuria, No Urinary Incontinence, No Urgency, No Flank Pain, No Urinary Flow Changes, No Hesitancy Musculoskeletal : No joint pain, No Myalgias, No Joint Swelling Skin : No Skin Lesions, No rash Neuro : No Weakness, No Numbness, No Paresthesias, No Loss of Consciousness, No Dizziness, complaining of Headache Psych : No Anxiety/Panic, No Depression, No SI/HI/AH/VH, No Social Issues, Heme/Lymph: No Bruising, No Bleeding,No Lymphadenopathy Endocrine : No Polyuria, No Polydipsia, No Temperature Intolerance PMFSH Past Medical History Medical History Anxiety Anxiety and depression Bipolar disorder Cataracts, bilateral Cervical disc disease Cervical pain Chronic low back pain Contusion of right lower leg, sequela Early satiety Elevation of adrenocorticotropic hormone (ACTH) Epigastric pain Erectile dysfunction Genital herpes GERD (gastroesophageal reflux disease) Knee pain, right Mixed hyperlipidemia Neurological signs Obesity (BMI 30-39.9) Overweight (BMI 25.0-29.9) Polyarthralgia Right knee pain Smoker Superficial gastritis without hemorrhage Weight loss, non-intentional Surgical History H/O eye surgery History of esophagogastroduodenoscopy (EGD) History of inguinal hernia repair Hx of colonoscopy Family History Family History Father Medical history unknown Mother Chronic mental illness Schizophrenia Diabetes Kidney problem Dialysis patient HTN (hypertension) Family/Other FH: mental illness Maternal Grandfather Prostate cancer Paternal Grandfather Lung cancer Social History Social History Household Members: None Are you a primary healthcare customer service to a significant other at home: No Do you presently have visiting nurse or other home services: No Alcohol intake: never Patient Tobacco Use Status: Current everyday Tobacco user Tobacco use type: Cigarette Cigarettes Per Day: 3 Years Smoked: 40 Advance Directives: No Advance Directives Information Provided: No Current occupational status: disabled Physical Exam Vital Signs: Vital Signs: Last Vital Signs Temp 97.8 F 01/21/21 08:00 Pulse 62 01/21/21 08:52 Resp 16 01/21/21 08:52 BP 118/61 01/21/21 08:52 Pulse Ox 98 01/21/21 08:52 Body Mass Index 32.1 Const: Other: Appearance: Alert. Oriented X3. No acute distress. Eyes: Pupils equal, round and reactive to light. ENT: Pharynx normal. Small vesicles in the lower lobes, not in oropharynx, tonsillar enlargement without exudates, no blocking the airway Neck: Normal inspection. Neck supple. No lymph nodes noted. No crepitus CVS: Normal heart rate and rhythm. Pulses normal. Normal S1 and S2 Respiratory: No respiratory distress. Breath sounds normal. No Wheezing. No rales Abdomen: Soft and nontender. No rigidity. No distention. Skin: Skin warm and dry. Normal skin color. Normal skin turgor. Extremities: No lower extremity edema. No lower extremity edema. No Lacerations. No Rash Neuro: Oriented X 3. No motor deficit. No sensory deficit. Moving all extermities. No slurred speech. Course Course Course Narrative: I discussed the labs with the patient, patient tested positive for strep, negative for COVID. Patient will be given a prescription and he will follow up with his primary care physician. Medical Decision Making Lab Data Labs: Lab Results 01/21/21 01/21/21 Range/Units 09:16 09:16 COVID-19 ([facility]) Negative (Negative) COVID-19 Clin Com See Note S. pyogenes GrpA ELIAZAR Positive A (Negative) Imaging Data Chest x-ray: Radiologist's impression: FINDINGS: The lungs are well-expanded and clear of acute process. Heart size and pulmonary vascularity is normal. No gross bony abnormality seen. XR/XR chest 1V IMPRESSION: Unremarkable chest examination. ? Discharge Plan Discharge Clinical Impression: Strep pharyngitis Patient Disposition: Home, Self-Care Instructions: Pharyngitis (ED) Additional Instructions: You need a toothbrush after you finish her antibiotics. Please follow-up with your primary care physician tomorrow. If you have any worsening or new symptoms, please return to the emergency room or call 911 Prescriptions: New amoxicillin-pot clavulanate [Augmentin] 500-125 mg tablet 1 tab PO BID Qty: 20 RF: 0 No Action albuterol sulfate 90 mcg/actuation HFA aerosol inhaler 2 puff inhalation Q4-6H PRN (Reason: shortness of breath or wheezing) 30 Days Qty: 8.5 RF: 0 baclofen 10 mg tablet 10 mg PO BID PRN (Reason: for muscle spasm) Qty: 60 RF: 0 (DME) miscellaneous medical supply Misc See Rx Instructions .ROUTE .MEDSUPPLY Qty: 1 RF: 0 (DME) cane Device See Rx Instructions .ROUTE .MEDSUPPLY Qty: 1 RF: 0 (DME) back brace Misc See Rx Instructions .ROUTE .MEDSUPPLY Qty: 1 RF: 0 miscellaneous medical supply Misc 1 ea miscellaneous DAILY Qty: 1 RF: 0 oxycodone 10 mg tablet 10 mg PO BID PRN (Reason: pain) 7 Days Qty: 14 RF: 0 pantoprazole 40 mg tablet,delayed release (DR/EC) 40 mg PO BID Qty: 60 RF: 3 sildenafil [Viagra] 100 mg tablet 100 mg PO DAILY PRN (Reason: sexual activity) 30 Days Qty: 10 RF: 1 valacyclovir [Valtrex] 1 gram tablet 1,000 mg PO Q8H 7 Days Qty: 21 RF: 0 risperidone 1 mg tablet 1 mg PO BID 90 Days Qty: 180 RF: 3 clonazepam 1 mg tablet 1 mg PO DAILY PRN (Reason: anxiety) 30 Days Qty: 30 RF: 0 diphenhydramine HCl 25 mg capsule 25 mg PO Q6H PRN (Reason: Anxiety) RF: 0 acetaminophen 500 mg capsule 500 mg PO Q6H PRN (Reason: Pain) RF: 0 cyclobenzaprine 10 mg tablet 10 mg PO BEDTIME 30 Days Qty: 30 RF: 0 fluoxetine 20 mg capsule 20 mg PO DAILY 90 Days Qty: 90 RF: 1 diphenhydramine HCl [Banophen] 25 mg capsule 25 mg PO Q8H PRNRF: 0 metronidazole [Flagyl] 500 mg tablet 500 mg PO TID 10 Days Qty: 30 RF: 0
[2021-01-21 08:52] VITALS: BP 118/61; PULSE 62; RESP 16; O2SAT 98
[2021-01-21 09:31] LABS: IDNOW Serial# 9DD0AD1C; Strep A Nucleic Acid Positive (Negative)
[2021-01-21] MEDS: Acetaminophen 325 MG TABLET 650 MG PO (09:40)
[2021-01-21 09:49] LABS: COVID-19 Test Negative (Negative)
== END 2021-01-21 10:32 | disposition home or self-care (01) ==
PROVIDERS: Emergency Provider Emergency Medicine; PCP Internal Medicine
DX: J02.0 Streptococcal pharyngitis (principal); Z20.822 Contact with and (suspected) exposure to COVID-19
CPT/HCPCS: 36415; 71045; 87635; 87651; 99283; 99284

== ENCOUNTER 2021-02-13 11:50 | Inpatient (IN) | payer OTHER, SELFPAY ==
--- NOTE | 2021-02-13 12:01 | ED_ITS ---
HPI - Psych General Chief Complaint: Psychiatric Symptoms Stated Complaint: SI Time Seen by Provider: 02/13/21 11:58 Source: patient Mode of arrival: ambulatory Limitations: no limitations History of Present Illness HPI Narrative: loste everything after recent relapse MD complaint: suicidal ideation, feels depressed and substance abuse Onset (ago): week(s) (4) Duration: getting worse History of same: Yes Relieving factors: none Exacerbating factors: drug use Context: recent drug abuse and significant life stressor Associated psychiatric symptoms: depression and suicidal ideation Associated symptoms: denies other symptoms Treatments prior to arrival: none If self harm: admits thoughts of self harm and has plan (wants to jump off [place] [address]) Related Data Previous Rx's Medication Instructions Recorded fluoxetine 20 mg capsule 20 mg PO DAILY 90 Days #90 cap 09/09/20 pantoprazole 40 mg tablet,delayed 40 mg PO BID #60 tab 10/21/20 release risperidone 1 mg tablet 1 mg PO BID 90 Days #180 tab 11/05/20 clonazepam 1 mg tablet 1 mg PO DAILY PRN 30 Days #30 tab 11/09/20 Allergies Allergy/AdvReac Type Severity Reaction Status Date / Time codeine [CODEINE] Allergy Intermediate RASH, Verified 10/01/20 18:31 shortness of breath ibuprofen [IBUPROFEN] Allergy Intermediate RASH/HIVES, Verified 10/01/20 18:31 redness and itching latex Allergy Intermediate redness Verified 10/01/20 18:31 and itching Review of Systems Review of Systems: Constitutional : No Fever, No Chills ENT/Mouth : No Ear Pain, No Nasal Congestion, No sore throat Eyes: No Eye Pain, No Swelling, No Redness Cardiovascular : No Chest Pain, No SOB Respiratory : No Cough, No Sputum, No Dyspnea Gastrointestinal : No Nausea, No Vomiting, No Diarrhea, No Hematochezia, No Melena Genitourinary : No Dysuria, No Urinary Frequency, No Hematuria Musculoskeletal : No Myalgias Skin : No Skin Lesions, No rash Neuro : No Weakness, No Numbness, No Paresthesias, No Dizziness, No Headache Psych : positive Anxiety, positive Depression, positive SI , no HI Heme/Lymph: No Lymphadenopathy Endocrine : No Polyuria, No Polydipsia All other systems reviewed and are negative [facility] Past Medical History Attestation statement: The following information was validated with the patient. Medical History Anxiety Anxiety and depression Bipolar disorder Cataracts, bilateral Cervical disc disease Cervical pain Chronic low back pain Contusion of right lower leg, sequela Early satiety Elevation of adrenocorticotropic hormone (ACTH) Epigastric pain Erectile dysfunction Genital herpes GERD (gastroesophageal reflux disease) Knee pain, right Mixed hyperlipidemia Neurological signs Obesity (BMI 30-39.9) Overweight (BMI 25.0-29.9) Polyarthralgia Right knee pain Smoker Superficial gastritis without hemorrhage Weight loss, non-intentional Surgical History H/O eye surgery History of esophagogastroduodenoscopy (EGD) History of inguinal hernia repair Hx of colonoscopy Family History Family History Father Medical history unknown Mother Chronic mental illness Schizophrenia Diabetes Kidney problem Dialysis patient HTN (hypertension) Family/Other FH: mental illness Maternal Grandfather Prostate cancer Paternal Grandfather Lung cancer Social History Social History (Updated 02/13/21 @ 12:49 by Anita Murry DO) Household Members: None Are you a primary manager medicare marketing to a significant other at home: No Do you presently have visiting nurse or other home services: No Alcohol intake: never Patient Tobacco Use Status: Current everyday Tobacco user Tobacco use type: Cigarette Cigarettes Per Day: 3 Years Smoked: 40 Substance Use Type: Crack/Cocaine Advance Directives: No Advance Directives Information Provided: No Current occupational status: disabled Physical Exam Vital Signs: Vital Signs: Last Vital Signs Temp 98.2 F 02/13/21 13:10 Pulse 82 02/13/21 13:10 Resp 18 02/13/21 13:10 BP 127/81 02/13/21 13:10 Pulse Ox 98 02/13/21 13:10 Body Mass Index 20.9 Appearance: Alert. Oriented X3. No acute distress. Eyes: Pupils equal, round and reactive to light. ENT: Pharynx normal. Neck: Normal inspection. Neck supple. CVS: Normal heart rate and rhythm. Pulses normal. Respiratory: No respiratory distress. Breath sounds normal. Abdomen: Soft and non-tender. Skin: Skin warm and dry. Normal skin color. Normal skin turgor. Extremities: No lower extremity edema. No calf ttp Neuro: Oriented X 3. No motor deficit. No sensory deficit. CN2-12 intact Psych: pos SI, depressed, calm/cooperative Course Course Course Narrative: Physician observation started at 151pm Patient placed in physician observation because the patient needed more time for [facility] the [facility]. At the time observation was started the patient's vitals were stable, patient is alert and oriented, Neuro: nonfocal, CV RRR, Lungs clear MDM - Psych MDM Narrative Medical decision making narrative: 55 yo male with hx of HLD, anxiety/depression, bipolar just relapsed on crack cocaine here with c/o SI following relapse and plan to jump off [place] - he notes he has lost everything - labs, [facility] consult Lab Data Result diagrams: 02/13/21 12:43 02/13/21 12:43 Labs: Lab Results 02/13/21 02/13/21 02/13/21 Range/Units 12:37 12:43 12:43 WBC 8.5 (4.8-10.8) X10*3/uL RBC 5.28 (4.60-5.80) X10*6/uL Hgb 16.7 (14.0-18.0) g/dl Hct 50.0 (42.0-52.0) % MCV 94.7 (80.0-98.0) fL MCH 31.6 (27.0-33.0) pg MCHC 33.4 (31.0-36.0) g/dl RDW 12.3 (11.0-16.0) % Plt Count 276 (160-400) X10*3/uL MPV 9.1 L (9.4-12.4) fL Immature Gran % (Auto) 0.4 (0.0-0.4) % Neut % (Auto) 65.2 (45-73) % Lymph % (Auto) 18.4 L (20-40) % [place] % (Auto) 12.7 H (2-11) % Eos % (Auto) 2.8 (0-4) % Baso % (Auto) 0.5 (0-2) % Lymph # (Auto) 1.6 (1.2-4.9) X10*3/uL [place] # (Auto) 1.1 (0.1-1.2) X10*3/uL Eos # (Auto) 0.2 (0.0-0.4) X10*3/uL Baso # (Auto) 0.0 (0.0-0.2) X10*3/uL Abs Immat Gran (auto) 0.03 (0.00-0.03) X10*3/uL Absolute Neuts (auto) 5.6 (2.0-8.3) x10*3/uL Absolute Nucleated RBC 0.000 (0.0-0.012) X10*3/uL Nucleated RBC % (auto) 0.0 (0.0-0.2) /100WBC Sodium 139 (135-145) mmol/L Potassium 3.9 (3.3-5.1) mmol/L Chloride 106 (96-108) mmol/L Carbon Dioxide 26 (22-29) mmol/L Anion Gap 11 L (12-20) BUN 14 (9-16) mg/dL Creatinine 1.02 (0.5-1.4) mg/dL Estim Creat Clear Calc TNP Estimated GFR > 60 Random Glucose 131 H (60-115) mg/dL Calcium 9.1 (8.4-10.2) mg/dL Total Bilirubin 0.7 (0.0-1.0) mg/dL Direct Bilirubin 0.3 (0.0-0.5) mg/dL AST 17 (5-37) U/L ALT 15 (0-40) U/L Alkaline Phosphatase 73 (39-117) U/L Total Protein 6.8 (6.5-8.0) g/dL Albumin 4.0 (3.5-5.0) g/dL Urine Opiates Screen Not Detected (Not Detect) Urine Fentanyl Screen POSITIVE H (Not Detect) Ur Barbiturates Screen Not Detected (Not Detect) Ur Phencyclidine Scrn Not Detected (Not Detect) Ur Amphetamines Screen Not Detected (Not Detect) U Benzodiazepines Scrn Not Detected (Not Detect) Urine Cocaine Screen POSITIVE H (Not Detect) U Marijuana (THC) Screen Not Detected (Not Detect) COVID-19 ([facility]) (Negative) COVID-19 Clin Com 02/13/21 Range/Units 13:04 WBC (4.8-10.8) X10*3/uL RBC (4.60-5.80) X10*6/uL Hgb (14.0-18.0) g/dl Hct (42.0-52.0) % MCV (80.0-98.0) fL MCH (27.0-33.0) pg MCHC (31.0-36.0) g/dl RDW (11.0-16.0) % Plt Count (160-400) X10*3/uL MPV (9.4-12.4) fL Immature Gran % (Auto) (0.0-0.4) % Neut % (Auto) (45-73) % Lymph % (Auto) (20-40) % [place] % (Auto) (2-11) % Eos % (Auto) (0-4) % Baso % (Auto) (0-2) % Lymph # (Auto) (1.2-4.9) X10*3/uL [place] # (Auto) (0.1-1.2) X10*3/uL Eos # (Auto) (0.0-0.4) X10*3/uL Baso # (Auto) (0.0-0.2) X10*3/uL Abs Immat Gran (auto) (0.00-0.03) X10*3/uL Absolute Neuts (auto) (2.0-8.3) x10*3/uL Absolute Nucleated RBC (0.0-0.012) X10*3/uL Nucleated RBC % (auto) (0.0-0.2) /100WBC Sodium (135-145) mmol/L Potassium (3.3-5.1) mmol/L Chloride (96-108) mmol/L Carbon Dioxide (22-29) mmol/L Anion Gap (12-20) BUN (9-16) mg/dL Creatinine (0.5-1.4) mg/dL Estim Creat Clear Calc Estimated GFR Random Glucose (60-115) mg/dL Calcium (8.4-10.2) mg/dL Total Bilirubin (0.0-1.0) mg/dL Direct Bilirubin (0.0-0.5) mg/dL AST (5-37) U/L ALT (0-40) U/L Alkaline Phosphatase (39-117) U/L Total Protein (6.5-8.0) g/dL Albumin (3.5-5.0) g/dL Urine Opiates Screen (Not Detect) Urine Fentanyl Screen (Not Detect) Ur Barbiturates Screen (Not Detect) Ur Phencyclidine Scrn (Not Detect) Ur Amphetamines Screen (Not Detect) U Benzodiazepines Scrn (Not Detect) Urine Cocaine Screen (Not Detect) U Marijuana (THC) Screen (Not Detect) COVID-19 ([facility]) Negative (Negative) COVID-19 Clin Com See Note Discharge Plan Discharge Clinical Impression: Depression, Cocaine abuse Patient Disposition: Still a Patient Prescriptions: No Action pantoprazole 40 mg tablet,delayed release (DR/EC) 40 mg PO BID Qty: 60 RF: 3 risperidone 1 mg tablet 1 mg PO BID 90 Days Qty: 180 RF: 3 clonazepam 1 mg tablet 1 mg PO DAILY PRN (Reason: anxiety) 30 Days Qty: 30 RF: 0 fluoxetine 20 mg capsule 20 mg PO DAILY 90 Days Qty: 90 RF: 1
[2021-02-13 12:51] LABS: MANUAL DIFF FLAG NO
[2021-02-13 12:54] LABS: Basophils Percent Auto 0.5 % (0-2); Eosinophils Absolute Auto 0.2 X10*3/uL (0.0-0.4); Eosinophils Percent Auto 2.8 % (0-4); Hemoglobin 16.7 g/dl (14.0-18.0); Imm Gran Abs Auto 0.03 X10*3/uL (0.00-0.03); Imm Gran Pct Auto 0.4 % (0.0-0.4); Lymphocytes Absolute Auto 1.6 X10*3/uL (1.2-4.9); Lymphocytes Percent Auto 18.4 % (20-40); Mean Corpuscular HGB Conc 33.4 g/dl (31.0-36.0); Mean Corpuscular Hemoglobin 31.6 pg (27.0-33.0); Mean Corpuscular Volume 94.7 fL (80.0-98.0); Mean Platelet Volume 9.1 fL (9.4-12.4); Monocytes Absolute Auto 1.1 X10*3/uL (0.1-1.2); Monocytes Percent Auto 12.7 % (2-11); Neutrophils Absolute Auto 5.6 x10*3/uL (2.0-8.3); Neutrophils Percent Auto 65.2 % (45-73); Platelet Count 276 X10*3/uL (160-400); Red Blood Count 5.28 X10*6/uL (4.60-5.80); Red Cell Distribution Width 12.3 % (11.0-16.0); White Blood Count 8.5 X10*3/uL (4.8-10.8)
[2021-02-13 13:10] VITALS: BP 127/81; PULSE 82; RESP 18; TEMP 36.8; O2SAT 98; BMI 20.9
[2021-02-13 13:12] LABS: Amphetamine Screen Urine Not Detected (Not Detect); Barbiturates, Urine Not Detected (Not Detect); Benzodiazepines Screen Urine Not Detected (Not Detect); Cannabinoid Screen Urine Not Detected (Not Detect); Cocaine Screen Urine POSITIVE (Not Detect); Fentanyl, urine POSITIVE (Not Detect); Opiate Screen Urine Not Detected (Not Detect); Phencyclidine Screen Urine Not Detected (Not Detect)
[2021-02-13 13:12] LABS: Alanine Aminotransferase 15 U/L (0-40); Alkaline Phosphatase 73 U/L (39-117); Anion Gap 11 (12-20); Aspartate Amino Transferase 17 U/L (5-37); Bilirubin Direct 0.3 mg/dL (0.0-0.5); Bilirubin Total 0.7 mg/dL (0.0-1.0); Blood Urea Nitrogen 14 mg/dL (9-16); Calcium 9.1 mg/dL (8.4-10.2); Carbon Dioxide 26 mmol/L (22-29); Chloride 106 mmol/L (96-108); Estimated Glomerular Filt Rate > 60; Glucose Random 131 mg/dL (60-115); Potassium 3.9 mmol/L (3.3-5.1); Sodium 139 mmol/L (135-145); Total Protein 6.8 g/dL (6.5-8.0)
[2021-02-13 13:43] LABS: COVID-19 Test Negative (Negative)
[2021-02-13] MEDS: clonazePAM 1 MG TABLET PO (20:42)
[2021-02-13] MEDS: Omeprazole 20 MG CAPSULE.DR PO (20:42)
[2021-02-13] MEDS: risperiDONE 1 MG TABLET PO (20:42)
[2021-02-14 01:06] VITALS: BP 124/91; PULSE 79; RESP 17; TEMP 36.8; O2SAT 98
--- NOTE | 2021-02-14 05:25 | PC.NURSE ---
Patient slept through the night, no distress observed/reported, medication compliant, behavior pleasant and appropriate, appetite good, elimination intact, contracted for the safety, VSS, disposition per N is section 12 inpatient bed search, will continue to monitor.
--- NOTE | 2021-02-14 08:12 | PC.NURSE ---
patient appears to remain at rest at present respirations are even and unlabored patient appears in no distress.
[2021-02-14 10:11] VITALS: BP 105/86; PULSE 81; TEMP 37.1; O2SAT 98
[2021-02-14] MEDS: FLUoxetine HCl 20 MG CAPSULE PO (10:55)
[2021-02-14] MEDS: Omeprazole 20 MG CAPSULE.DR PO ×2 (10:55→20:27)
[2021-02-14] MEDS: risperiDONE 1 MG TABLET PO ×2 (10:55→20:27)
[2021-02-14] MEDS: clonazePAM 1 MG TABLET PO ×2 (12:22→20:27)
[2021-02-15 02:51] VITALS: BP 107/75; PULSE 89; RESP 16; TEMP 36.5; O2SAT 97
--- NOTE | 2021-02-15 05:20 | PC.NURSE ---
Patient slept through the night, no distress observed/reported, medication compliant, behavior appropriate, disposition is section 12 inpatient bed search per [facility], appetite good, contracted for the safety, VSS, will continue to monitor.
--- NOTE | 2021-02-15 07:03 | PC.NURSE ---
patient appears to remain asleep at present with even unlabored breaths patient appears in no distress
[2021-02-15] MEDS: Omeprazole 20 MG CAPSULE.DR PO ×2 (09:47→20:41)
[2021-02-15] MEDS: FLUoxetine HCl 20 MG CAPSULE PO (09:47)
[2021-02-15] MEDS: risperiDONE 1 MG TABLET PO ×2 (09:47→20:41)
[2021-02-15 10:02] VITALS: BP 117/72; PULSE 103; TEMP 36.7; O2SAT 97
[2021-02-15] MEDS: clonazePAM 1 MG TABLET PO (20:41)
--- NOTE | 2021-02-16 | ECG_ITS ---
Test Reason : medical clearance Blood Pressure : / mmHG Vent. Rate : 084 BPM Atrial Rate : 084 BPM P-R Int : 126 ms QRS Dur : 084 ms QT Int : 344 ms P-R-T Axes : 074 069 051 degrees QTc Int : 406 ms Normal sinus rhythm RSR' or QR pattern in V1 suggests right ventricular conduction delay Nonspecific ST abnormality Borderline ECG Heart rate has increased Referred By: Carolyn Mckenna Electronically Signed By:MARY LUU MD
--- NOTE | 2021-02-16 06:19 | PC.NURSE ---
Patient slept through the night, out of room x 1 for bathroom use and back, no distress observed/reported, behavior calm, quiet, and appropriate, medication compliant, contracted for the safety, disposition section 12 inpatient bed search, will continue to monitor.
--- NOTE | 2021-02-16 07:54 | PC.NURSE ---
patient appears to remain asleep at present respirations are even and unlabored patient appears in no distress
[2021-02-16] MEDS: FLUoxetine HCl 20 MG CAPSULE PO (08:36)
[2021-02-16] MEDS: risperiDONE 1 MG TABLET PO ×2 (08:36→20:28)
[2021-02-16] MEDS: Omeprazole 20 MG CAPSULE.DR PO ×2 (08:36→20:28)
[2021-02-16 10:18] VITALS: BP 122/74; PULSE 103; RESP 18; TEMP 36.8; O2SAT 97
[2021-02-16 16:50] VITALS: BP 141/84; PULSE 96; RESP 18; TEMP 36.1; O2SAT 97
[2021-02-16] MEDS: clonazePAM 1 MG TABLET PO (20:27)
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
--- NOTE | 2021-02-16 21:55 | PC.ADMIT ---
55 y.o. male admitted from [facility] for psychiatric evaluation. Per crisis report; Pt was transported to ED by son for SI and chronic substance abuse. Pt has not been taking medications and feels hopeless. Pt reported that he found himself at a bridge and and old lady, maybe an stuart asked him what he was doing and encouraged him to contact his family. Pt reported that he relapsed on crack cocaine in December of 2020. PMHx; kidney disease, heart disease, glaucoma, and thyroid concerns. Pt on admission A&O, anxious, depressed with flat affect and minimal eye contact Pt reports I was tired and relapsed on crack cocain . Pt reports that he has not been taking his medications for 2 weeks prior to coming to the hospital because i was moving . Pt currently reports staying with his daughter and the grandson in there apartment. Pt reports that life is to beautiful when asked about SI thoughts. Pt denies si,hi,avh on admission. Pt reports that on (after his 3 day) he will be brought by family to [facility] [place] to check in for a year. Pt reports that he does not have a psychiatrist and that his PCP prescribes his medications. Orders obtained. Pt on unit safety checks.
--- NOTE | 2021-02-16 22:05 | PC.NURSE ---
Pt signed 3 day up on 02/19/21
[2021-02-17 06:00] VITALS: BP 99/58; PULSE 77; RESP 18; TEMP 36.9; O2SAT 96
[2021-02-17 08:49] LABS: Estimated Average Glucose 100 mg/dL; Hemoglobin A1c % 5.1 %
[2021-02-17 09:12] LABS: Cholesterol 161 mg/dL; HDL Cholesterol 38 mg/dL; LDL Cholesterol Calculated 96 mg/dl; Triglycerides 138 mg/dL
[2021-02-17] MEDS: risperiDONE 1 MG TABLET PO ×2 (09:33→20:39)
[2021-02-17] MEDS: FLUoxetine HCl 20 MG CAPSULE PO (09:33)
[2021-02-17] MEDS: Omeprazole 20 MG CAPSULE.DR PO ×2 (09:33→20:39)
[2021-02-17 09:36] LABS: Free T4 (Free Thyroxine) 0.95 ng/dL (0.71-1.85); Thyroid Stimulating Hormone 1.36 uIU/mL (0.32-4.0)
--- NOTE | 2021-02-17 09:57 | HO.PSYCHPN ---
Subjective Subjective Date of Service: 02/17/21 Reason For Visit: Bipolar D/O SI Stimulant Use D/O Crack Cocaine Subjective Notes: Martines Warning Interim History: pt reports he's in good mood; he explains he's been in hosptial since tuesday and that all SI resolved by tuesday. Pt reports he's been sober for years and only relapsed for a week when hanging out w/ wrong friends. He felt guilty and and like a failure, and became suicidal, however he reached to his daughter and son, not wanting to and had them take him to crisis. Pt says he is very grateful for his family. Pt has already secured himself at a year long program that he's excited to attend, which starts this . 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 Pt says medications help and he wants to remain on them. Mental Status Exam Mental Status Exam Narrative: A&O. sitting on bed, hospital attire, adequate hygiene. Good eye contact, attentive. No Tics or Tremors. No abnormal involuntary movements. Calm and engaged in meaningful conversation. Non-pressured speech, spontaneous with regular rate and rhythm, normal volume and prosody. No prolonged speech latency or dysarthria. Mood is ?good,? affect congruent. Denies SI/SIB/HI upon inquiry. Denies A/VH or delusional thought content. Thoughts are coherent, organized. No known cognitive or memory impairment. Insight/ Judgment fair and adequate.? Diagnostics Vital Signs (24Hr): Vital Signs - 24 hr 02/16/21 10:18 02/16/21 16:50 02/17/21 06:00 Temperature 98.3 F 96.9 F 98.4 F Pulse Rate 103 H 96 77 Respiratory Rate 18 18 18 Blood Pressure 122/74 141/84 H 99/58 L Pulse Oximetry 97 97 96 Body Mass Index 20.9 Labs Results: 02/13/21 12:43 02/13/21 12:43 Labs: Laboratory Results - last 48 hr 02/17/21 02/17/21 08:13 08:13 Estimat Average Glucose 100 Hemoglobin A1c % 5.1 Triglycerides 138 Cholesterol 161 LDL Cholesterol, Calc 96 HDL Cholesterol 38 TSH 1.36 Free T4 0.95 Medications Medications Current Medications Acetaminophen (Acetaminophen 325 Mg Tablet) 650 mg PO Q6H PRN PRN Reason: Headache/Pain Mild Scale (1-3) Al Hydroxide/Mg Hydroxide (Magnesium Hydrox/Alum Hydrox 30 Ml Oral.Susp) 30 ml PO Q6H PRN PRN Reason: Heartburn/Nausea Clonazepam (Clonazepam 1 Mg Tablet) 1 mg PO DAILY PRN PRN Reason: anxiety Last Admin: 02/16/21 20:27 Dose: 1 mg Documented by: Fluoxetine HCl (Fluoxetine Hcl 20 Mg Capsule) 20 mg PO DAILY [facility] Last Admin: 02/17/21 09:33 Dose: 20 mg Documented by: Magnesium Hydroxide (Milk Of Magnesia 30 Ml Oral.Susp) 30 ml PO DAILY PRN PRN Reason: Constipation Omeprazole (Omeprazole 20 Mg Capsule.Dr) 20 mg PO BID [facility] Last Admin: 02/17/21 09:33 Dose: 20 mg Documented by: Pharmacy Consult (Consult Rx Perform Med Rec) 1 each MISCELLANE ONCE PRN PRN Reason: Consult order Risperidone (Risperidone 1 Mg Tablet) 1 mg PO BID [facility] Last Admin: 02/17/21 09:33 Dose: 1 mg Documented by: Trazodone HCl (Trazodone Hcl 50 Mg Tablet) 50 mg PO BEDTIME PRN PRN Reason: Insomnia Allergies Allergies Allergy/AdvReac Type Severity Reaction Status Date / Time codeine [CODEINE] Allergy Intermediate RASH, Verified 10/01/20 18:31 shortness of breath ibuprofen [IBUPROFEN] Allergy Intermediate RASH/HIVES, Verified 10/01/20 18:31 redness and itching latex Allergy Intermediate redness Verified 10/01/20 18:31 and itching Assessment & Plan Assessment & Plan (1) MDD (major depressive disorder), recurrent episode, moderate: Status: Acute Code(s): F33.1 - Major depressive disorder, recurrent, moderate (2) Cocaine use disorder: Status: Acute Code(s): F14.10 - Cocaine abuse, uncomplicated Assessment and Plan: Jg is a 55 y.o. Male who carries a dx of moderate MDD, recurrent and severe cocaine use disorder, dependence. Pt self presented [place] [facility] on 02[place]13[place]21 reporting increased depression and SI after relapse on substances and non-adherence on OP psych medications. His utox was positive for fentanyl and cocaine. Recent incarceration. He reported daily crack cocaine use. No current OP services. Pt identified protective factors as work and his family, as he is close with his daughter and his daughter?s mother. Currently homeless. Pt already signed 3 day notice, as he chiefly wanted to re-start his OP medications and obtain OP services for RICARDO. pt reports he's stable; denies any SI (for 4 days now) and feels ready for discharge; he is future oriented and optimistic about staying sober. Restarted on home meds. If remains stable, will dc to program on 02/19 Plan: Will continue OP medication regimen. prozac 20 mg QAM for sx of depression and risperdal 1 mg BID for mood stability. On clonazepam 1 mg PRN and typically takes this at bedtime for insomnia. (last script from PCP around 01/18) Monitor response to medications. Monitor for safety in the milieu. Discharge on stabilization. Patient seen. Chart reviewed. Discussed with team. Obtain collateral contact info?as needed I spent minutes with the patient and/or on the patient floor today, greater than?50% of which was spent counseling/coordinating care. Reason for contiued inpatient stay Substantial Risk for: med/psych decompensation
[2021-02-17 10:01] LABS: Folate 10.6 ng/mL (> or = 4.0); Vitamin B12 243 pg/mL (200-900)
[2021-02-17 17:10] VITALS: BP 112/71; PULSE 98; TEMP 36.4; O2SAT 95
[2021-02-17] MEDS: clonazePAM 1 MG TABLET PO (20:40)
[2021-02-18] MEDS: risperiDONE 1 MG TABLET PO ×2 (09:19→20:23)
[2021-02-18] MEDS: FLUoxetine HCl 20 MG CAPSULE PO (09:19)
[2021-02-18] MEDS: Omeprazole 20 MG CAPSULE.DR PO ×2 (09:19→20:23)
[2021-02-18 09:26] VITALS: BP 123/76; PULSE 94; RESP 18; O2SAT 96
--- NOTE | 2021-02-18 10:15 | HO.PSYCHPN ---
Subjective Subjective Date of Service: 02/18/21 Reason For Visit: Bipolar D/O SI Stimulant Use D/O Crack Cocaine Interim History: pt in good mood; no SI; sleeping and eating well. Pt remains focused on program and continuing treatment as outpt. Pt is optimistic and grateful to have resolved relapse and depression; he is very grateful for his children and does not want them to worry about his safety. Tolerating meds well. [facility]program reports no benzo's and pt says he's fine with discontinuing this which he's used for insomnia. He declines clonidine (and trazodone makes mouth dry) and says he learned to sleep in [facility] w/out insomnia meds and he'll do so again. Mental Status Exam Mental Status Exam Narrative: A&O., hospital attire, adequate hygiene. Good eye contact, attentive. No Tics or Tremors. No abnormal involuntary movements. Calm and engaged in meaningful conversation. Non-pressured speech, spontaneous with regular rate and rhythm, normal volume and prosody. No prolonged speech latency or dysarthria. Mood is ?good,? affect congruent. Denies SI/SIB/HI upon inquiry. Denies A/VH or delusional thought content. Thoughts are coherent, organized. No known cognitive or memory impairment. Insight/ Judgment fair and adequate.? Diagnostics Vital Signs (24Hr): Vital Signs - 24 hr 02/17/21 17:10 02/18/21 09:26 Temperature 97.5 F Pulse Rate 98 94 Respiratory Rate 18 Blood Pressure 112/71 123/76 Pulse Oximetry 95 96 Body Mass Index 20.9 Labs Results: 02/13/21 12:43 02/13/21 12:43 Labs: Laboratory Results - last 48 hr 02/17/21 02/17/21 02/17/21 08:13 08:13 08:13 Estimat Average Glucose 100 Hemoglobin A1c % 5.1 Triglycerides 138 Cholesterol 161 LDL Cholesterol, Calc 96 HDL Cholesterol 38 Vitamin B12 243 Folate 10.6 TSH 1.36 Free T4 0.95 Medications Medications Current Medications Acetaminophen (Acetaminophen 325 Mg Tablet) 650 mg PO Q6H PRN PRN Reason: Headache/Pain Mild Scale (1-3) Al Hydroxide/Mg Hydroxide (Magnesium Hydrox/Alum Hydrox 30 Ml Oral.Susp) 30 ml PO Q6H PRN PRN Reason: Heartburn/Nausea Clonazepam (Clonazepam 1 Mg Tablet) 1 mg PO DAILY PRN PRN Reason: anxiety Last Admin: 02/17/21 20:40 Dose: 1 mg Documented by: Fluoxetine HCl (Fluoxetine Hcl 20 Mg Capsule) 20 mg PO DAILY [facility] Last Admin: 02/18/21 09:19 Dose: 20 mg Documented by: Magnesium Hydroxide (Milk Of Magnesia 30 Ml Oral.Susp) 30 ml PO DAILY PRN PRN Reason: Constipation Omeprazole (Omeprazole 20 Mg Capsule.) 20 mg PO BID [facility] Last Admin: 02/18/21 09:19 Dose: 20 mg Documented by: Pharmacy Consult (Consult Rx Perform Med Rec) 1 each MISCELLANE ONCE PRN PRN Reason: Consult order Risperidone (Risperidone 1 Mg Tablet) 1 mg PO BID [facility] Last Admin: 02/18/21 09:19 Dose: 1 mg Documented by: Trazodone HCl (Trazodone Hcl 50 Mg Tablet) 50 mg PO BEDTIME PRN PRN Reason: Insomnia Allergies Allergies Allergy/AdvReac Type Severity Reaction Status Date / Time codeine [CODEINE] Allergy Intermediate RASH, Verified 10/01/20 18:31 shortness of breath ibuprofen [IBUPROFEN] Allergy Intermediate RASH/HIVES, Verified 10/01/20 18:31 redness and itching latex Allergy Intermediate redness Verified 10/01/20 18:31 and itching Assessment & Plan Assessment & Plan (1) MDD (major depressive disorder), recurrent episode, moderate: Status: Acute Code(s): F33.1 - Major depressive disorder, recurrent, moderate (2) Cocaine use disorder: Status: Acute Code(s): F14.10 - Cocaine abuse, uncomplicated Assessment and Plan: Jg is a 55 y.o. Male who carries a dx of moderate MDD, recurrent and severe cocaine use disorder, dependence. Pt self presented at [facility] on 02/13/21 reporting increased depression and SI after relapse on substances and non-adherence on OP psych medications. His utox was positive for fentanyl and cocaine. Recent incarceration. He reported daily crack cocaine use. No current OP services. Pt identified protective factors as work and his family, as he is close with his daughter and his daughter?s mother. Currently homeless. Pt already signed 3 day notice, as he chiefly wanted to re-start his OP medications and obtain OP services for RICARDO. pt reports he's stable; denies any SI (for 4 days now) and feels ready for discharge; he is future oriented and optimistic about staying sober. Restarted on home meds. If remains stable, will dc to program on 02/19 -remains stable, in good mood, w/out any SI/HI/AVH, future oriented, optimistic about staying sober and about continuing treatment. He is discharging to stable environment. Pt is not in imminent risk for harm to self or others and request for DC hononred. Plan: Will continue OP medication regimen. prozac 20 mg QAM for sx of depression and risperdal 1 mg BID for mood stability. DC clonazepam; penitentiary does not allow Monitor response to medications. Monitor for safety in the milieu. Discharge on stabilization. Patient seen. Chart reviewed. Discussed with team. Obtain collateral contact info?as needed I spent minutes with the patient and/or on the patient floor today, greater than?50% of which was spent counseling/coordinating care. Reason for contiued inpatient stay Substantial Risk for: stable for discharge
[2021-02-18 17:24] VITALS: BP 132/80; PULSE 76; RESP 17; TEMP 36.7; O2SAT 97
[2021-02-18] MEDS: clonazePAM 1 MG TABLET PO (20:56)
--- NOTE | 2021-02-18 22:56 | P.DS_ITS ---
DS: Providers Provider Date of Service: 02/19/21 Date of admission: 02/16/21 15:28 Date of discharge: 02/19/21 Primary care physician: Philippe Lal MD Admitting clinician: Delores Gallegos Attending physician on admission: Robin Wilson DS: Diagnosis Discharge Diagnosis (1) MDD (major depressive disorder), recurrent episode, moderate: Status: Acute (2) Cocaine use disorder: Status: Acute DS: Medications Discharge Medications Home Medications: Previous Rx's Medication Instructions Recorded fluoxetine 20 mg capsule 20 mg PO DAILY 30 Days #30 cap 02/18/21 pantoprazole 40 mg tablet,delayed 40 mg PO BID 30 Days #60 tab 02/18/21 release risperidone 1 mg tablet 1 mg PO BID 30 Days #60 tab 02/18/21 Mental Status Exam Mental Status Exam Narrative: A&O., hospital attire, adequate hygiene. Good eye contact, attentive. No Tics or Tremors. No abnormal involuntary movements. Calm and engaged in meaningful conversation. Non-pressured speech, spontaneous with regular rate and rhythm, normal volume and prosody. No prolonged speech latency or dysarthria. Mood is ?good,? affect congruent. Denies SI/SIB/HI upon inquiry. Denies A/VH or delusional thought content. Thoughts are coherent, organized. No known cognitive or memory impairment. Insight/ Judgment fair and adequate.? Data Data Completed and Pending Completed studies during hospitalization [Text1]: 02/13/21 02/13/21 02/13/21 12:37 12:43 12:43 WBC 8.5 RBC 5.28 Hgb 16.7 Hct 50.0 MCV 94.7 MCH 31.6 MCHC 33.4 RDW 12.3 Plt Count 276 MPV 9.1 L Immature Gran % (Auto) 0.4 Neut % (Auto) 65.2 Lymph % (Auto) 18.4 L [place] % (Auto) 12.7 H Eos % (Auto) 2.8 Baso % (Auto) 0.5 Lymph # (Auto) 1.6 [place] # (Auto) 1.1 Eos # (Auto) 0.2 Baso # (Auto) 0.0 Abs Immat Gran (auto) 0.03 Absolute Neuts (auto) 5.6 Absolute Nucleated RBC 0.000 Nucleated RBC % (auto) 0.0 Sodium 139 Potassium 3.9 Chloride 106 Carbon Dioxide 26 Anion Gap 11 L BUN 14 Creatinine 1.02 Estim Creat Clear Calc TNP Estimated GFR > 60 Random Glucose 131 H Estimat Average Glucose Hemoglobin A1c % Calcium 9.1 Total Bilirubin 0.7 Direct Bilirubin 0.3 AST 17 ALT 15 Alkaline Phosphatase 73 Total Protein 6.8 Albumin 4.0 Triglycerides Cholesterol LDL Cholesterol, Calc HDL Cholesterol Vitamin B12 Folate TSH Free T4 Urine Opiates Screen Not Detected Urine Fentanyl Screen POSITIVE H Ur Barbiturates Screen Not Detected Ur Phencyclidine Scrn Not Detected Ur Amphetamines Screen Not Detected U Benzodiazepines Scrn Not Detected Urine Cocaine Screen POSITIVE H U Marijuana (THC) Screen Not Detected COVID-19 ([facility]) COVID-19 [employer] 02/13/21 02/17/21 02/17/21 13:04 08:13 08:13 WBC RBC Hgb Hct MCV MCH MCHC RDW Plt Count MPV Immature Gran % (Auto) Neut % (Auto) Lymph % (Auto) [place] % (Auto) Eos % (Auto) Baso % (Auto) Lymph # (Auto) [place] # (Auto) Eos # (Auto) Baso # (Auto) Abs Immat Gran (auto) Absolute Neuts (auto) Absolute Nucleated RBC Nucleated RBC % (auto) Sodium Potassium Chloride Carbon Dioxide Anion Gap BUN Creatinine Estim Creat Clear Calc Estimated GFR Random Glucose Estimat Average Glucose 100 Hemoglobin A1c % 5.1 Calcium Total Bilirubin Direct Bilirubin AST ALT Alkaline Phosphatase Total Protein Albumin Triglycerides 138 Cholesterol 161 LDL Cholesterol, Calc 96 HDL Cholesterol 38 Vitamin B12 Folate TSH 1.36 Free T4 0.95 Urine Opiates Screen Urine Fentanyl Screen Ur Barbiturates Screen Ur Phencyclidine Scrn Ur Amphetamines Screen U Benzodiazepines Scrn Urine Cocaine Screen U Marijuana (THC) Screen COVID-19 ([facility]) Negative COVID-19 [employer] Com See Note 02/17/21 08:13 WBC RBC Hgb Hct MCV MCH MCHC RDW Plt Count MPV Immature Gran % (Auto) Neut % (Auto) Lymph % (Auto) [place] % (Auto) Eos % (Auto) Baso % (Auto) Lymph # (Auto) [place] # (Auto) Eos # (Auto) Baso # (Auto) Abs Immat Gran (auto) Absolute Neuts (auto) Absolute Nucleated RBC Nucleated RBC % (auto) Sodium Potassium Chloride Carbon Dioxide Anion Gap BUN Creatinine Estim Creat Clear Calc Estimated GFR Random Glucose Estimat Average Glucose Hemoglobin A1c % Calcium Total Bilirubin Direct Bilirubin AST ALT Alkaline Phosphatase Total Protein Albumin Triglycerides Cholesterol LDL Cholesterol, Calc HDL Cholesterol Vitamin B12 243 Folate 10.6 TSH Free T4 Urine Opiates Screen Urine Fentanyl Screen Ur Barbiturates Screen Ur Phencyclidine Scrn Ur Amphetamines Screen U Benzodiazepines Scrn Urine Cocaine Screen U Marijuana (THC) Screen COVID-19 ([facility]) COVID-19 Clin Com DS: Summary Hospital Course Hospital Course: Jg is a 55 y.o. Male who carries a dx of moderate MDD, recurrent and severe cocaine use disorder, dependence. Pt self presented at [facility] on 02/13/21 reporting increased depression and SI after relapse on cocaine for 1 week. Pt identified protective factors as work and his family, as he is close with his daughter and his daughter?s mother and he reached out to his kids following his SI and asked them to bring him to the ED. On admission,pt was stable, in good mood and no SI (no SI for 4 days now) and felt ready for discharge; he was continued on his outpt medications which he said are effective. Pt remained future oriented and optimistic about staying sober and has a bed waiting for him at a 1 year program, post discharge. He signed a 3 day notice and asked for discharge on 02/19 to get to that program. Restarted on home meds. Pt remained in good mood, without SI/HI or AVH, appropriate w/ peers and staff, attending groups, sleeping and eating well and in good behavioral and impulse control throughout admission. Pt is not in imminent risk for harm to self or others and is discharging to a safe environment. Pt's requests for DC hononred. Status at Discharge Functional status at discharge: independent ambulation Overall status at discharge: patient is back to baseline Time Spent with Patient Time attestation: Total time spent providing and/or coordinating discharge services: Time spent: Less than 30 minutes Discharge Plan Discharge Patient Disposition: Xfer to Respite Facility Discharge Diagnosis: mdd, recurrent, severe in full remission Referrals: [facility] [Other] - 1 Week (Follow-up appointment for therapy.) [facility] [Other] - 1 Week (Patient referral to halfway Patient scheduled to arrive and meet with math teacher at 1:00 pm following discharge from [facility].) Philippe Lal MD [Primary Care Provider] - 1 Week (OFFICE WILL CALL PATIENT WITH FOLLOW-UP APPOINTMENT.) Discharge Medications: Continued pantoprazole 40 mg tablet,delayed release (DR/EC) 40 mg PO BID 30 Days Qty: 60 RF: 3 fluoxetine 20 mg capsule 20 mg PO DAILY 30 Days Qty: 30 RF: 1 risperidone 1 mg tablet 1 mg PO BID 30 Days Qty: 60 RF: 3 Discontinued clonazepam 1 mg tablet 1 mg PO DAILY PRN (Reason: anxiety) 30 Days Qty: 30 RF: 0 Discharge Orders: Discharge Order (Routine); Ordered 02/19/21 Ordered By: Robin Wilson Diet: regular diet Activity on Discharge: As tolerated Stand Alone Forms: Patient Portal Discharge page Care Plan Goals: Maintain mood and safe behaviors Take medications as prescribed Continue to pursue sobriety Practice coping skills Continue with outpatient providers and reach out to them as needed Health Concerns: Mood stability and behaviors Sobriety Plan of Treatment: Follow up with your PCP, psychiatric provider and other outpatient providers regarding above concerns Take medications as prescribed Assessment: Risk assessment at time of discharge:? Patient was interviewed prior to discharge and found to be fully oriented and without any SI or HI. Patient has insight and demonstrates good judgment in terms of wanting to pursue treatment. Patient is not in imminent risk of harm to self or others and has a safety plan that includes presenting to the closest ER or calling 911 if feeling unsafe.? Patient has been observed closely by nursing and unit staff throughout admission; patient has not engaged in any behaviors that suggest dangerousness to self or others and has demonstrated appropriate behaviors and impulse control
[2021-02-19 06:00] VITALS: BP 122/75; PULSE 79; RESP 18; TEMP 36.6; O2SAT 99
[2021-02-19] MEDS: Omeprazole 20 MG CAPSULE.DR PO (08:57)
[2021-02-19] MEDS: FLUoxetine HCl 20 MG CAPSULE PO (08:57)
[2021-02-19] MEDS: risperiDONE 1 MG TABLET PO (08:57)
[2021-02-19] MEDS: Naloxone HCl Nasal TAKE HOME 4 MG SPRAY NOSTRILALT (10:29)
== END 2021-02-19 10:45 | DRG 885 ==
LOC: HO.ED 02-16 14:28 → HO.PM5 02-16 15:50
PROVIDERS: Clinical Nurse Specialist Psychiatric/Mental Health, Adult; Admitting Provider Psychiatry & Neurology Psychiatry; Emergency Provider Emergency Medicine; PCP Internal Medicine; Visit Provider Psychiatry & Neurology Psychiatry
DX: F33.1 Major depressive disorder, recurrent, moderate (principal); R45.851 Suicidal ideations; F14.10 Cocaine abuse, uncomplicated; K21.9 Gastro-esophageal reflux disease without esophagitis; F41.9 Anxiety disorder, unspecified; F17.210 Nicotine dependence, cigarettes, uncomplicated; R00.0 Tachycardia, unspecified; Z20.822 Contact with and (suspected) exposure to COVID-19; Z71.6 Tobacco abuse counseling; Z59.02 Unsheltered homelessness; Z62.810 Personal history of physical and sexual abuse in childhood; Z88.5 Allergy status to narcotic agent; Z88.6 Allergy status to analgesic agent; Z91.040 Latex allergy status; Z79.899 Other long term (current) drug therapy
CPT/HCPCS: 36415; 80048; 80061; 80076; 80307; 82607; 82746; 83036; 84439; 84443; 85025; 87635; 93005; 99285

== ENCOUNTER 2021-03-02 13:25 | Emergency (ER) | payer OTHER, SELFPAY ==
[2021-03-02 13:27] VITALS: BP 129/64; PULSE 77; RESP 16; TEMP 36.9; O2SAT 97; BMI 21.3
--- NOTE | 2021-03-02 13:36 | ED.PSYCH ---
HPI - Psych General Chief Complaint: Psychiatric Symptoms <Tr Mendoza MD - Last Filed: 03/02/21 17:26> Stated Complaint: crisis <Tr Mendoza MD - Last Filed: 03/02/21 17:26> Time Seen by Provider: 03/02/21 13:36 <Tr Mendoza MD - Last Filed: 03/02/21 17:26> Source: patient <Tr Mendoza MD - Last Filed: 03/02/21 17:26> Mode of arrival: ambulatory <Tr Mendoza MD - Last Filed: 03/02/21 17:26> Limitations: no limitations <Tr Mendoza MD - Last Filed: 03/02/21 17:26> History of Present Illness HPI Narrative: patient with increased depression and suicidal ideation for the past 11 days. He is homeless and feels helpless. He is still using crack cocaine, he is not having visual or auditory hallucinations, he does not have a plan on how to kill himself. In the past he has OD on oxycodone in a suicide attempt. <Tr Mendoza MD - Last Filed: 03/02/21 17:26> MD complaint: suicidal ideation and feels depressed <Tr Mendoza MD - Last Filed: 03/02/21 17:26> Onset (ago): week(s) <Tr Mendoza MD - Last Filed: 03/02/21 17:26> Duration: constant <Tr Mendoza MD - Last Filed: 03/02/21 17:26> History of same: Yes <Tr Mendoza MD - Last Filed: 03/02/21 17:26> Context: recent drug abuse <Tr Mendoza MD - Last Filed: 03/02/21 17:26> Associated psychiatric symptoms: depression and suicidal ideation <Tr Mendoza MD - Last Filed: 03/02/21 17:26> Associated symptoms: denies other symptoms <Tr Mendoza MD - Last Filed: 03/02/21 17:26> Related Data Home Medications: Home Medications Medication Instructions Recorded Confirmed fluoxetine 20 mg capsule 20 mg PO DAILY 03/02/21 03/02/21 pantoprazole 40 mg tablet,delayed 1 tab PO BID 03/02/21 03/02/21 release risperidone 1 mg tablet 1 tab PO BID 03/02/21 03/02/21 <Tr Mendoza MD - Last Filed: 03/02/21 17:26> Allergies/Adverse Reactions: Allergies Allergy/AdvReac Type Severity Reaction Status Date / Time codeine [CODEINE] Allergy Intermediate RASH, Verified 10/01/20 18:31 shortness of breath ibuprofen [IBUPROFEN] Allergy Intermediate RASH/HIVES, Verified 10/01/20 18:31 redness and itching latex Allergy Intermediate redness Verified 10/01/20 18:31 and itching <Tr Mendoza MD - Last Filed: 03/02/21 17:26> Review of Systems Constitutional: Constitutional: Reports no additional constitutional complaints <Tr Mendoza MD - Last Filed: 03/02/21 17:26> Eyes: Eyes: Reports no additional eye complaints <Tr Mendoza MD - Last Filed: 03/02/21 17:26> ENT: Denies dizziness <Tr Mendoza MD - Last Filed: 03/02/21 17:26> Cardiovascular: Cardiovascular: Reports no additional cardiovascular complaints <Tr Mendoza MD - Last Filed: 03/02/21 17:26> Respiratory: Respiratory: Reports as per HPI <Tr Mendoza MD - Last Filed: 03/02/21 17:26> Gastrointestinal: Gastrointestinal: Reports no additional gastrointestinal complaints <rT Mendoza MD - Last Filed: 03/02/21 17:26> Musculoskeletal: Musculoskeletal: Reports no additional musculoskeletal complaints <Tr Mendoza MD - Last Filed: 03/02/21 17:26> Integumentary/Breasts: Skin/Breast: Denies rash <Tr Mendoza MD - Last Filed: 03/02/21 17:26> Neurologic: Reports system reviewed and no additional complaints, except as documented, Denies dizziness and Denies Sensory deficit (Neuro) <Tr Mendoza MD - Last Filed: 03/02/21 17:26> Psychiatric: Psychiatric: Denies anxiety <Tr Mendoza MD - Last Filed: 03/02/21 17:26> PMFSH Past Medical History Medical History: Medical History Anxiety Anxiety and depression Bipolar disorder Cataracts, bilateral Cervical disc disease Cervical pain Chronic low back pain Contusion of right lower leg, sequela Early satiety Elevation of adrenocorticotropic hormone (ACTH) Epigastric pain Erectile dysfunction Genital herpes GERD (gastroesophageal reflux disease) Knee pain, right Mixed hyperlipidemia Neurological signs Obesity (BMI 30-39.9) Overweight (BMI 25.0-29.9) Polyarthralgia Right knee pain Smoker Superficial gastritis without hemorrhage Weight loss, non-intentional <Tr Mendoza MD - Last Filed: 03/02/21 17:26> Surgical History: Surgical History H/O eye surgery History of esophagogastroduodenoscopy (EGD) History of inguinal hernia repair Hx of colonoscopy <Tr Mendoza MD - Last Filed: 03/02/21 17:26> Family History Family History: Family History Father Medical history unknown Mother Chronic mental illness Schizophrenia Diabetes Kidney problem Dialysis patient HTN (hypertension) Family/Other FH: mental illness Maternal Grandfather Prostate cancer Paternal Grandfather Lung cancer <Tr Mendoza MD - Last Filed: 03/02/21 17:26> Social History Social History: Social History Household Members: Other Household Members Other:: Pt reports daughter(Sabrina) and his grandson Housing: Apartment Are you a primary animal care taker to a significant other at home: No Do you presently have visiting nurse or other home services: No Alcohol intake: never Patient Tobacco Use Status: Current everyday Tobacco user Tobacco use type: Cigarette Cigarette Packs Per Day: 0.5 Cigarettes Per Day: 10.0 Years Smoked: 40 Second Hand Smoke Exposure: No Substance Use Type: Crack/Cocaine Advance Directives: No Advance Directives Information Provided: No service: No Current occupational status: disabled Sexual orientation: Straight/Heterosexual <Tr Mendoza MD - Last Filed: 03/02/21 17:26> Physical Exam Vital Signs: Vital Signs: Last Vital Signs Temp 98.2 F 03/03/21 07:57 Pulse 92 03/03/21 07:57 Resp 12 03/03/21 07:57 BP 110/66 03/03/21 07:57 Pulse Ox 98 03/03/21 07:57 Body Mass Index 21.3 <Tr Mendoza MD - Last Filed: 03/02/21 17:26> Vital Signs: Last Vital Signs Temp 98.2 F 03/03/21 07:57 Pulse 92 03/03/21 07:57 Resp 12 03/03/21 07:57 BP 110/66 03/03/21 07:57 Pulse Ox 98 03/03/21 07:57 Body Mass Index 21.3 <Laxmi Mireles NP - Last Filed: 03/02/21 21:23> Vital Signs: Last Vital Signs Temp 98.2 F 03/03/21 07:57 Pulse 92 03/03/21 07:57 Resp 12 03/03/21 07:57 BP 110/66 03/03/21 07:57 Pulse Ox 98 03/03/21 07:57 Body Mass Index 21.3 <BARB Yadav - Last Filed: 03/03/21 10:21> Const: General: healthy appearing <Tr Mendoza MD - Last Filed: 03/02/21 17:26> Nutritional Appearance: average body habitus <Tr Mendoza MD - Last Filed: 03/02/21 17:26> Orientation/consciousness: oriented to person and patient oriented x3 <Tr Mendoza MD - Last Filed: 03/02/21 17:26> Limitations: no limitations <Tr Mendoza MD - Last Filed: 03/02/21 17:26> HENMT: Head: Yes normal to inspection <Tr Mendoza MD - Last Filed: 03/02/21 17:26> Ears: external ears normal <Tr Mendoza MD - Last Filed: 03/02/21 17:26> General nose exam: Normal external nose present <Tr Mendoza MD - Last Filed: 03/02/21 17:26> Mouth: Normal oral and palatal mucosa present and oropharynx normal <Tr Mendoza MD - Last Filed: 03/02/21 17:26> Throat: Yes posterior oropharynx normal <Tr Mendoza MD - Last Filed: 03/02/21 17:26> Eyes: General: appearance normal, both eyes and all related structures <Tr Mendoza MD - Last Filed: 03/02/21 17:26> Neck: Other: supple <Tr Mendoza MD - Last Filed: 03/02/21 17:26> Neck: Yes normal visual inspection <Tr Mendoza MD - Last Filed: 03/02/21 17:26> Chest: Chest palpation & inspection: normal inspection of the chest <Tr Mendoza MD - Last Filed: 03/02/21 17:26> Resp: Auscultation: clear to auscultation bilaterally <Tr Mendoza MD - Last Filed: 03/02/21 17:26> Cardio: Jugular venous distension: no JVD <Tr Mendoza MD - Last Filed: 03/02/21 17:26> Rate: regular rate <Tr Mendoza MD - Last Filed: 03/02/21 17:26> Rhythm: regular rhythm <Tr Mendoza MD - Last Filed: 03/02/21 17:26> Heart sounds: S1 normal heart sound present and S2 normal heart sound present <Tr Mendoza MD - Last Filed: 03/02/21 17:26> GI: Inspection: Yes normal to inspection <Tr Mendoza MD - Last Filed: 03/02/21 17:26> Palpation (GI): Soft to palpation, nontender and No hepatosplenomegaly present <Tr Mendoza MD - Last Filed: 03/02/21 17:26> Auscultation: normal bowel sounds <Tr Mendoza MD - Last Filed: 03/02/21 17:26> : General: Yes no CVA tenderness <Tr Mendoza MD - Last Filed: 03/02/21 17:26> Back/Spine/Pelvis: Back: no CVA tenderness <Tr Mendoza MD - Last Filed: 03/02/21 17:26> Skin: General skin exam: no rashes or lesions noted <Tr Mendoza MD - Last Filed: 03/02/21 17:26> Neuro: General: oriented to person and patient oriented x3 <Tr Mendoza MD - Last Filed: 03/02/21 17:26> Cranial nerves: Yes CN's II-XII intact bilaterally <Tr Mendoza MD - Last Filed: 03/02/21 17:26> Motor exam (neuro): 5/5 motor strength present throughout <Tr Mendoza MD - Last Filed: 03/02/21 17:26> Sensory Exam: No Sensory deficit (Neuro) <Tr Mendoza MD - Last Filed: 03/02/21 17:26> Extrem: General: Yes normal to inspection <Tr Mendoza MD - Last Filed: 03/02/21 17:26> Psych: Other: flat affect at times seems agitated with the questioning <Tr Mendoza MD - Last Filed: 03/02/21 17:26> Course Reevaluation(s) Reevaluation #1: Physician observation started, patient placed in observation as he is claiming depression and suicidal ideation without a clear plan, he is to be evaluated by crisis as he was here 10 days ago for the same <Tr Mendoza MD - Last Filed: 03/02/21 17:26> Time: 17:25 <Tr Mendoza MD - Last Filed: 03/02/21 17:26> Reevaluation #2: seen by crisis. plan for respite tomorrow morning at 10:00 <Laxmi Mireles NP - Last Filed: 03/02/21 21:23> Time: 21:00 <Laxmi Mireles NP - Last Filed: 03/02/21 21:23> Reevaluation #3: 03/03/21--1020am-- physician observation completed. Patient will be leaving for respite this morning, sinus picking him up from the emergency department. Labs reviewed. Vital signs stable <BARB Yadav - Last Filed: 03/03/21 10:21> MDM - Psych Lab Data Result diagrams: : 03/02/21 14:03 03/02/21 14:03 <Tr Mendoza MD - Last Filed: 11/22/21 17:26> Labs: Lab Results 03/02/21 03/02/21 03/02/21 Range/Units 14:01 14:03 14:03 WBC 6.7 (4.8-10.8) X10*3/uL RBC 5.12 (4.60-5.80) X10*6/uL Hgb 16.3 (14.0-18.0) g/dl Hct 48.7 (42.0-52.0) % MCV 95.1 (80.0-98.0) fL MCH 31.8 (27.0-33.0) pg MCHC 33.5 (31.0-36.0) g/dl RDW 12.2 (11.0-16.0) % Plt Count 293 (160-400) X10*3/uL MPV 9.2 L (9.4-12.4) fL Immature Gran % (Auto) 0.3 (0.0-0.4) % Neut % (Auto) 56.5 (45-73) % Lymph % (Auto) 22.9 (20-40) % Lincoln % (Auto) 14.9 H (2-11) % Eos % (Auto) 4.5 H (0-4) % Baso % (Auto) 0.9 (0-2) % Lymph # (Auto) 1.5 (1.2-4.9) X10*3/uL [place] # (Auto) 1.0 (0.1-1.2) X10*3/uL Eos # (Auto) 0.3 (0.0-0.4) X10*3/uL Baso # (Auto) 0.1 (0.0-0.2) X10*3/uL Abs Immat Gran (auto) 0.02 (0.00-0.03) X10*3/uL Absolute Neuts (auto) 3.8 (2.0-8.3) x10*3/uL Absolute Nucleated RBC 0.000 (0.0-0.012) X10*3/uL Nucleated RBC % (auto) 0.0 (0.0-0.2) /100WBC Sodium 140 (135-145) mmol/L Potassium 4.4 (3.3-5.1) mmol/L Chloride 106 (96-108) mmol/L Carbon Dioxide 30 H (22-29) mmol/L Anion Gap 8 L (12-20) BUN 12 (9-16) mg/dL Creatinine 1.08 (0.5-1.4) mg/dL Estim Creat Clear Calc 66.9 Estimated GFR > 60 Random Glucose 118 H (60-115) mg/dL Calcium 9.5 (8.4-10.2) mg/dL Total Bilirubin 0.2 (0.0-1.0) mg/dL AST 21 (5-37) U/L ALT 20 (0-40) U/L Alkaline Phosphatase 76 (39-117) U/L Total Protein 6.6 (6.5-8.0) g/dL Albumin 3.8 (3.5-5.0) g/dL Salicylates < 5.0 L (15-30) mg/dL Urine Opiates Screen Not Detected (Not Detect) Urine Fentanyl Screen Not Detected (Not Detect) Acetaminophen < 1 (<30) mcg/mL Ur Barbiturates Screen Not Detected (Not Detect) Ur Phencyclidine Scrn Not Detected (Not Detect) Ur Amphetamines Screen Not Detected (Not Detect) U Benzodiazepines Scrn Not Detected (Not Detect) Urine Cocaine Screen POSITIVE H (Not Detect) U Marijuana (THC) Screen Not Detected (Not Detect) Ethyl Alcohol mg/dL COVID-19 ([facility]) (Negative) COVID-19 Clin Com 03/02/21 03/02/21 Range/Units 14:03 14:06 WBC (4.8-10.8) X10*3/uL RBC (4.60-5.80) X10*6/uL Hgb (14.0-18.0) g/dl Hct (42.0-52.0) % MCV (80.0-98.0) fL MCH (27.0-33.0) pg MCHC (31.0-36.0) g/dl RDW (11.0-16.0) % Plt Count (160-400) X10*3/uL MPV (9.4-12.4) fL Immature Gran % (Auto) (0.0-0.4) % Neut % (Auto) (45-73) % Lymph % (Auto) (20-40) % Lincoln % (Auto) (2-11) % Eos % (Auto) (0-4) % Baso % (Auto) (0-2) % Lymph # (Auto) (1.2-4.9) X10*3/uL [place] # (Auto) (0.1-1.2) X10*3/uL Eos # (Auto) (0.0-0.4) X10*3/uL Baso # (Auto) (0.0-0.2) X10*3/uL Abs Immat Gran (auto) (0.00-0.03) X10*3/uL Absolute Neuts (auto) (2.0-8.3) x10*3/uL Absolute Nucleated RBC (0.0-0.012) X10*3/uL Nucleated RBC % (auto) (0.0-0.2) /100WBC Sodium (135-145) mmol/L Potassium (3.3-5.1) mmol/L Chloride (96-108) mmol/L Carbon Dioxide (22-29) mmol/L Anion Gap (12-20) BUN (9-16) mg/dL Creatinine (0.5-1.4) mg/dL Estim Creat Clear Calc Estimated GFR Random Glucose (60-115) mg/dL Calcium (8.4-10.2) mg/dL Total Bilirubin (0.0-1.0) mg/dL AST (5-37) U/L ALT (0-40) U/L Alkaline Phosphatase (39-117) U/L Total Protein (6.5-8.0) g/dL Albumin (3.5-5.0) g/dL Salicylates (15-30) mg/dL Urine Opiates Screen (Not Detect) Urine Fentanyl Screen (Not Detect) Acetaminophen (<30) mcg/mL Ur Barbiturates Screen (Not Detect) Ur Phencyclidine Scrn (Not Detect) Ur Amphetamines Screen (Not Detect) U Benzodiazepines Scrn (Not Detect) Urine Cocaine Screen (Not Detect) U Marijuana (THC) Screen (Not Detect) Ethyl Alcohol < 10 mg/dL COVID-19 ([facility]) Negative (Negative) COVID-19 Clin Com See Note <Tr Mendoza MD - Last Filed: 03/02/21 17:26> Lab Results 03/02/21 03/02/21 03/02/21 Range/Units 14:01 14:03 14:03 WBC 6.7 (4.8-10.8) X10*3/uL RBC 5.12 (4.60-5.80) X10*6/uL Hgb 16.3 (14.0-18.0) g/dl Hct 48.7 (42.0-52.0) % MCV 95.1 (80.0-98.0) fL MCH 31.8 (27.0-33.0) pg MCHC 33.5 (31.0-36.0) g/dl RDW 12.2 (11.0-16.0) % Plt Count 293 (160-400) X10*3/uL MPV 9.2 L (9.4-12.4) fL Immature Gran % (Auto) 0.3 (0.0-0.4) % Neut % (Auto) 56.5 (45-73) % Lymph % (Auto) 22.9 (20-40) % Lincoln % (Auto) 14.9 H (2-11) % Eos % (Auto) 4.5 H (0-4) % Baso % (Auto) 0.9 (0-2) % Lymph # (Auto) 1.5 (1.2-4.9) X10*3/uL [place] # (Auto) 1.0 (0.1-1.2) X10*3/uL Eos # (Auto) 0.3 (0.0-0.4) X10*3/uL Baso # (Auto) 0.1 (0.0-0.2) X10*3/uL Abs Immat Gran (auto) 0.02 (0.00-0.03) X10*3/uL Absolute Neuts (auto) 3.8 (2.0-8.3) x10*3/uL Absolute Nucleated RBC 0.000 (0.0-0.012) X10*3/uL Nucleated RBC % (auto) 0.0 (0.0-0.2) /100WBC Sodium 140 (135-145) mmol/L Potassium 4.4 (3.3-5.1) mmol/L Chloride 106 (96-108) mmol/L Carbon Dioxide 30 H (22-29) mmol/L Anion Gap 8 L (12-20) BUN 12 (9-16) mg/dL Creatinine 1.08 (0.5-1.4) mg/dL Estim Creat Clear Calc 66.9 Estimated GFR > 60 Random Glucose 118 H (60-115) mg/dL Calcium 9.5 (8.4-10.2) mg/dL Total Bilirubin 0.2 (0.0-1.0) mg/dL AST 21 (5-37) U/L ALT 20 (0-40) U/L Alkaline Phosphatase 76 (39-117) U/L Total Protein 6.6 (6.5-8.0) g/dL Albumin 3.8 (3.5-5.0) g/dL Salicylates < 5.0 L (15-30) mg/dL Urine Opiates Screen Not Detected (Not Detect) Urine Fentanyl Screen Not Detected (Not Detect) Acetaminophen < 1 (<30) mcg/mL Ur Barbiturates Screen Not Detected (Not Detect) Ur Phencyclidine Scrn Not Detected (Not Detect) Ur Amphetamines Screen Not Detected (Not Detect) U Benzodiazepines Scrn Not Detected (Not Detect) Urine Cocaine Screen POSITIVE H (Not Detect) U Marijuana (THC) Screen Not Detected (Not Detect) Ethyl Alcohol mg/dL COVID-19 ([facility]) (Negative) COVID-19 Clin Com 03/02/21 03/02/21 Range/Units 14:03 14:06 WBC (4.8-10.8) X10*3/uL RBC (4.60-5.80) X10*6/uL Hgb (14.0-18.0) g/dl Hct (42.0-52.0) % MCV (80.0-98.0) fL MCH (27.0-33.0) pg MCHC (31.0-36.0) g/dl RDW (11.0-16.0) % Plt Count (160-400) X10*3/uL MPV (9.4-12.4) fL Immature Gran % (Auto) (0.0-0.4) % Neut % (Auto) (45-73) % Lymph % (Auto) (20-40) % Lincoln % (Auto) (2-11) % Eos % (Auto) (0-4) % Baso % (Auto) (0-2) % Lymph # (Auto) (1.2-4.9) X10*3/uL [place] # (Auto) (0.1-1.2) X10*3/uL Eos # (Auto) (0.0-0.4) X10*3/uL Baso # (Auto) (0.0-0.2) X10*3/uL Abs Immat Gran (auto) (0.00-0.03) X10*3/uL Absolute Neuts (auto) (2.0-8.3) x10*3/uL Absolute Nucleated RBC (0.0-0.012) X10*3/uL Nucleated RBC % (auto) (0.0-0.2) /100WBC Sodium (135-145) mmol/L Potassium (3.3-5.1) mmol/L Chloride (96-108) mmol/L Carbon Dioxide (22-29) mmol/L Anion Gap (12-20) BUN (9-16) mg/dL Creatinine (0.5-1.4) mg/dL Estim Creat Clear Calc Estimated GFR Random Glucose (60-115) mg/dL Calcium (8.4-10.2) mg/dL Total Bilirubin (0.0-1.0) mg/dL AST (5-37) U/L ALT (0-40) U/L Alkaline Phosphatase (39-117) U/L Total Protein (6.5-8.0) g/dL Albumin (3.5-5.0) g/dL Salicylates (15-30) mg/dL Urine Opiates Screen (Not Detect) Urine Fentanyl Screen (Not Detect) Acetaminophen (<30) mcg/mL Ur Barbiturates Screen (Not Detect) Ur Phencyclidine Scrn (Not Detect) Ur Amphetamines Screen (Not Detect) U Benzodiazepines Scrn (Not Detect) Urine Cocaine Screen (Not Detect) U Marijuana (THC) Screen (Not Detect) Ethyl Alcohol < 10 mg/dL COVID-19 ([facility]) Negative (Negative) COVID-19 Clin Com See Note <Laxmi Mireles, [employer]TER HELPER - Last Filed: 03/02/21 21:23> Lab Results 03/02/21 03/02/21 03/02/21 Range/Units 14:01 14:03 14:03 WBC 6.7 (4.8-10.8) X10*3/uL RBC 5.12 (4.60-5.80) X10*6/uL Hgb 16.3 (14.0-18.0) g/dl Hct 48.7 (42.0-52.0) % MCV 95.1 (80.0-98.0) fL MCH 31.8 (27.0-33.0) pg MCHC 33.5 (31.0-36.0) g/dl RDW 12.2 (11.0-16.0) % Plt Count 293 (160-400) X10*3/uL MPV 9.2 L (9.4-12.4) fL Immature Gran % (Auto) 0.3 (0.0-0.4) % Neut % (Auto) 56.5 (45-73) % Lymph % (Auto) 22.9 (20-40) % Lincoln % (Auto) 14.9 H (2-11) % Eos % (Auto) 4.5 H (0-4) % Baso % (Auto) 0.9 (0-2) % Lymph # (Auto) 1.5 (1.2-4.9) X10*3/uL [place] # (Auto) 1.0 (0.1-1.2) X10*3/uL Eos # (Auto) 0.3 (0.0-0.4) X10*3/uL Baso # (Auto) 0.1 (0.0-0.2) X10*3/uL Abs Immat Gran (auto) 0.02 (0.00-0.03) X10*3/uL Absolute Neuts (auto) 3.8 (2.0-8.3) x10*3/uL Absolute Nucleated RBC 0.000 (0.0-0.012) X10*3/uL Nucleated RBC % (auto) 0.0 (0.0-0.2) /100WBC Sodium 140 (135-145) mmol/L Potassium 4.4 (3.3-5.1) mmol/L Chloride 106 (96-108) mmol/L Carbon Dioxide 30 H (22-29) mmol/L Anion Gap 8 L (12-20) BUN 12 (9-16) mg/dL Creatinine 1.08 (0.5-1.4) mg/dL Estim Creat Clear Calc 66.9 Estimated GFR > 60 Random Glucose 118 H (60-115) mg/dL Calcium 9.5 (8.4-10.2) mg/dL Total Bilirubin 0.2 (0.0-1.0) mg/dL AST 21 (5-37) U/L ALT 20 (0-40) U/L Alkaline Phosphatase 76 (39-117) U/L Total Protein 6.6 (6.5-8.0) g/dL Albumin 3.8 (3.5-5.0) g/dL Salicylates < 5.0 L (15-30) mg/dL Urine Opiates Screen Not Detected (Not Detect) Urine Fentanyl Screen Not Detected (Not Detect) Acetaminophen < 1 (<30) mcg/mL Ur Barbiturates Screen Not Detected (Not Detect) Ur Phencyclidine Scrn Not Detected (Not Detect) Ur Amphetamines Screen Not Detected (Not Detect) U Benzodiazepines Scrn Not Detected (Not Detect) Urine Cocaine Screen POSITIVE H (Not Detect) U Marijuana (THC) Screen Not Detected (Not Detect) Ethyl Alcohol mg/dL COVID-19 ([facility]) (Negative) COVID-19 Clin Com 03/02/21 03/02/21 Range/Units 14:03 14:06 WBC (4.8-10.8) X10*3/uL RBC (4.60-5.80) X10*6/uL Hgb (14.0-18.0) g/dl Hct (42.0-52.0) % MCV (80.0-98.0) fL MCH (27.0-33.0) pg MCHC (31.0-36.0) g/dl RDW (11.0-16.0) % Plt Count (160-400) X10*3/uL MPV (9.4-12.4) fL Immature Gran % (Auto) (0.0-0.4) % Neut % (Auto) (45-73) % Lymph % (Auto) (20-40) % Lincoln % (Auto) (2-11) % Eos % (Auto) (0-4) % Baso % (Auto) (0-2) % Lymph # (Auto) (1.2-4.9) X10*3/uL [place] # (Auto) (0.1-1.2) X10*3/uL Eos # (Auto) (0.0-0.4) X10*3/uL Baso # (Auto) (0.0-0.2) X10*3/uL Abs Immat Gran (auto) (0.00-0.03) X10*3/uL Absolute Neuts (auto) (2.0-8.3) x10*3/uL Absolute Nucleated RBC (0.0-0.012) X10*3/uL Nucleated RBC % (auto) (0.0-0.2) /100WBC Sodium (135-145) mmol/L Potassium (3.3-5.1) mmol/L Chloride (96-108) mmol/L Carbon Dioxide (22-29) mmol/L Anion Gap (12-20) BUN (9-16) mg/dL Creatinine (0.5-1.4) mg/dL Estim Creat Clear Calc Estimated GFR Random Glucose (60-115) mg/dL Calcium (8.4-10.2) mg/dL Total Bilirubin (0.0-1.0) mg/dL AST (5-37) U/L ALT (0-40) U/L Alkaline Phosphatase (39-117) U/L Total Protein (6.5-8.0) g/dL Albumin (3.5-5.0) g/dL Salicylates (15-30) mg/dL Urine Opiates Screen (Not Detect) Urine Fentanyl Screen (Not Detect) Acetaminophen (<30) mcg/mL Ur Barbiturates Screen (Not Detect) Ur Phencyclidine Scrn (Not Detect) Ur Amphetamines Screen (Not Detect) U Benzodiazepines Scrn (Not Detect) Urine Cocaine Screen (Not Detect) U Marijuana (THC) Screen (Not Detect) Ethyl Alcohol < 10 mg/dL COVID-19 ([facility]) Negative (Negative) COVID-19 Clin Com See Note <BARB Yadav - Last Filed: 03/03/21 10:21> Discharge Plan Discharge Clinical Impression: Depression <Tr Mendoza MD - Last Filed: 03/02/21 17:26> Prescriptions: No Action pantoprazole 40 mg tablet,delayed release (DR/EC) 1 tab PO BID RF: 0 fluoxetine 20 mg capsule 20 mg PO DAILY RF: 0 risperidone 1 mg tablet 1 tab PO BID RF: 0 <Tr Mendoza MD - Last Filed: 03/02/21 17:26>
[2021-03-02 13:47] VITALS: BP 125/69; PULSE 72; RESP 16; TEMP 37.2; O2SAT 97
--- NOTE | 2021-03-02 13:52 | PC.NURSE ---
patient here last week, states since doesnt have enough resources (housing?) what do yout think will happen after dc/ reports no etoh use, uses crack cocaine. denies AH and [facility] reports si with plans too many
[2021-03-02 14:18] LABS: MANUAL DIFF FLAG NO
[2021-03-02 14:20] LABS: Basophils Absolute Auto 0.1 X10*3/uL (0.0-0.2); Basophils Percent Auto 0.9 % (0-2); Eosinophils Absolute Auto 0.3 X10*3/uL (0.0-0.4); Eosinophils Percent Auto 4.5 % (0-4); Hematocrit 48.7 % (42.0-52.0); Hemoglobin 16.3 g/dl (14.0-18.0); Imm Gran Abs Auto 0.02 X10*3/uL (0.00-0.03); Imm Gran Pct Auto 0.3 % (0.0-0.4); Lymphocytes Absolute Auto 1.5 X10*3/uL (1.2-4.9); Lymphocytes Percent Auto 22.9 % (20-40); Mean Corpuscular HGB Conc 33.5 g/dl (31.0-36.0); Mean Corpuscular Hemoglobin 31.8 pg (27.0-33.0); Mean Corpuscular Volume 95.1 fL (80.0-98.0); Mean Platelet Volume 9.2 fL (9.4-12.4); Monocytes Percent Auto 14.9 % (2-11); Neutrophils Absolute Auto 3.8 x10*3/uL (2.0-8.3); Neutrophils Percent Auto 56.5 % (45-73); Platelet Count 293 X10*3/uL (160-400); Red Blood Count 5.12 X10*6/uL (4.60-5.80); Red Cell Distribution Width 12.2 % (11.0-16.0); White Blood Count 6.7 X10*3/uL (4.8-10.8)
[2021-03-02 14:32] LABS: Ethanol < 10 mg/dL
[2021-03-02 14:34] LABS: Amphetamine Screen Urine Not Detected (Not Detect); Barbiturates, Urine Not Detected (Not Detect); Benzodiazepines Screen Urine Not Detected (Not Detect); Cannabinoid Screen Urine Not Detected (Not Detect); Cocaine Screen Urine POSITIVE (Not Detect); Fentanyl, urine Not Detected (Not Detect); Opiate Screen Urine Not Detected (Not Detect); Phencyclidine Screen Urine Not Detected (Not Detect)
[2021-03-02 14:38] LABS: Acetaminophen LAB < 1 mcg/mL (<30)
[2021-03-02 14:41] LABS: Alanine Aminotransferase 20 U/L (0-40); Albumin Level 3.8 g/dL (3.5-5.0); Alkaline Phosphatase 76 U/L (39-117); Anion Gap 8 (12-20); Aspartate Amino Transferase 21 U/L (5-37); Bilirubin Total 0.2 mg/dL (0.0-1.0); Blood Urea Nitrogen 12 mg/dL (9-16); Calcium 9.5 mg/dL (8.4-10.2); Carbon Dioxide 30 mmol/L (22-29); Chloride 106 mmol/L (96-108); Creatinine Clr Calc Pharmacy 66.9; Estimated Glomerular Filt Rate > 60; Glucose Random 118 mg/dL (60-115); Potassium 4.4 mmol/L (3.3-5.1); Salicylate < 5.0 mg/dL (15-30); Sodium 140 mmol/L (135-145); Total Protein 6.6 g/dL (6.5-8.0)
[2021-03-02 15:19] LABS: COVID-19 Test Negative (Negative); IDNOW Serial# 08D9AD1C
[2021-03-02 15:47] VITALS: BP 117/69; PULSE 85; RESP 18; TEMP 37.1; O2SAT 96
[2021-03-02] MEDS: Omeprazole 20 MG CAPSULE.DR PO (21:39)
[2021-03-02] MEDS: risperiDONE 1 MG TABLET PO (21:40)
[2021-03-03 00:26] VITALS: BP 125/61; PULSE 78; RESP 16; TEMP 36.6; O2SAT 98
--- NOTE | 2021-03-03 06:25 | PC.NURSE ---
Patient slept through the night, no distress observed/reported, behavior appropriate, medication compliant, patient disposition per [facility] is Respite, ETA at respite is 10 am, N will coordinate the d/c and ride, will continue to monitor.
--- NOTE | 2021-03-03 07:18 | PC.NURSE ---
patient appears to remain at rest at present, respirations are even and unlabored.
[2021-03-03 07:57] VITALS: BP 110/66; PULSE 92; RESP 12; TEMP 36.8; O2SAT 98
[2021-03-03] MEDS: risperiDONE 1 MG TABLET PO (09:52)
[2021-03-03] MEDS: Omeprazole 20 MG CAPSULE.DR PO (09:52)
[2021-03-03] MEDS: FLUoxetine HCl 20 MG CAPSULE PO (09:52)
== END 2021-03-03 10:42 ==
PROVIDERS: Emergency Provider Emergency Medicine; PCP Internal Medicine
DX: F32.A Depression, unspecified (principal); R45.851 Suicidal ideations; F14.10 Cocaine abuse, uncomplicated; F31.9 Bipolar disorder, unspecified; Z20.822 Contact with and (suspected) exposure to COVID-19; Z59.00 Homelessness unspecified; Z91.51 Personal history of suicidal behavior; Z79.899 Other long term (current) drug therapy
CPT/HCPCS: 36415; 80053; 80143; 80179; 80307; 82077; 85025; 87635; 99283; 99284

== ENCOUNTER 2021-03-19 02:51 | Emergency (ER) | payer OTHER, SELFPAY ==
--- NOTE | ~2021-03-19 | XR_ITS ---
EXAMINATION: XR CHEST CLINICAL INFORMATION: Cough COMPARISON: 01/21/2021 TECHNIQUE: 2 views of the chest were obtained. FINDINGS: The lungs are clear with no focal consolidation. No evidence of pneumothorax, pulmonary edema, or pleural effusions. The cardiomediastinal silhouette is unremarkable. No acute osseous findings. XR/XR chest 2V IMPRESSION: No acute cardiopulmonary findings.
[2021-03-19 02:56] VITALS: BP 112/66; PULSE 73; RESP 20; TEMP 36.6; O2SAT 97; BMI 29.8
[2021-03-19 03:32] VITALS: BP 136/79; PULSE 75; RESP 17; TEMP 36.6; O2SAT 96
--- NOTE | 2021-03-19 03:58 | ECG_ITS ---
Test Reason : medical clear Blood Pressure : / mmHG Vent. Rate : 074 BPM Atrial Rate : 074 BPM P-R Int : 118 ms QRS Dur : 084 ms QT Int : 404 ms P-R-T Axes : 045 063 052 degrees QTc Int : 448 ms Normal sinus rhythm Normal ECG When compared with ECG of 16-FEB-2021 14:08, No significant change was found Referred By: Meka Christian Electronically Signed By:Cornelius Mejia
--- NOTE | 2021-03-19 04:04 | ED.PSYCH ---
HPI - Psych General Chief Complaint: Psychiatric Symptoms Stated Complaint: crisis Time Seen by Provider: 03/19/21 03:56 Source: patient Mode of arrival: ambulatory History of Present Illness HPI Narrative: 55-year-old male with history of MDD and crack cocaine use presents with feelings of being overwhelmed and is though he is ?done?. Patient states he is homeless and has not eaten for 2 days and he can not take it any longer. Patient states that he has made multiple attempts to call respite but no one has returned his phone calls. He otherwise complains of cough but states he has received his COVID-19 vaccination. He states he is also interested in detoxing from crack cocaine. Related Data Home Medications Medication Instructions Recorded Confirmed fluoxetine 20 mg capsule 20 mg PO DAILY 03/02/21 03/19/21 pantoprazole 40 mg tablet,delayed 1 tab PO BID 03/02/21 03/19/21 release risperidone 1 mg tablet 1 tab PO BID 03/02/21 03/19/21 Allergies Allergy/AdvReac Type Severity Reaction Status Date / Time codeine [CODEINE] Allergy Intermediate RASH, Verified 10/01/20 18:31 shortness of breath ibuprofen [IBUPROFEN] Allergy Intermediate RASH/HIVES, Verified 10/01/20 18:31 redness and itching latex Allergy Intermediate redness Verified 10/01/20 18:31 and itching Review of Systems Review of Systems: Pertinent positives and negatives as stated in HPI 10 point review of systems is otherwise negative. [facility] Past Medical History Source: nursing notes reviewed Medical History Anxiety Anxiety and depression Bipolar disorder Cataracts, bilateral Cervical disc disease Cervical pain Chronic low back pain Contusion of right lower leg, sequela Early satiety Elevation of adrenocorticotropic hormone (ACTH) Epigastric pain Erectile dysfunction Genital herpes GERD (gastroesophageal reflux disease) Knee pain, right Mixed hyperlipidemia Neurological signs Obesity (BMI 30-39.9) Overweight (BMI 25.0-29.9) Polyarthralgia Right knee pain Smoker Superficial gastritis without hemorrhage Weight loss, non-intentional Surgical History H/O eye surgery History of esophagogastroduodenoscopy (EGD) History of inguinal hernia repair Hx of colonoscopy Family History Family History Father Medical history unknown Mother Chronic mental illness Schizophrenia Diabetes Kidney problem Dialysis patient HTN (hypertension) Family/Other FH: mental illness Maternal Grandfather Prostate cancer Paternal Grandfather Lung cancer Social History Social History Household Members: Other Household Members Other:: Pt reports daughter(Sabrina) and his grandson Housing: Apartment Are you a primary emergency care attendant to a significant other at home: No Do you presently have visiting nurse or other home services: No Alcohol intake: never Patient Tobacco Use Status: Current everyday Tobacco user Tobacco use type: Cigarette Cigarette Packs Per Day: 0.5 Cigarettes Per Day: 10.0 Years Smoked: 40 Second Hand Smoke Exposure: No Substance Use Type: Crack/Cocaine Advance Directives: No Advance Directives Information Provided: Yes service: No Current occupational status: disabled Sexual orientation: Straight/Heterosexual Physical Exam Vital Signs: Vital Signs: Last Vital Signs Temp 97.8 F 03/19/21 03:32 Pulse 75 03/19/21 03:32 Resp 17 03/19/21 03:32 BP 136/79 03/19/21 03:32 Pulse Ox 96 03/19/21 03:32 BMI result Body Mass Index 29.8 VITAL SIGNS: Reviewed. GENERAL: Well developed, well nourished, in no acute distress. HEAD: Normocephalic/atraumatic EYES: PERRLA, EOMI OROPHARYNX: no oral lesions noted, posterior pharynx clear LUNGS: Normal breath sounds. SpO2<96> CARDIOVASCULAR: Regular rate and rhythm without noted murmurs ABDOMEN: Soft, non-tender, non-distended with bowel sounds. NEUROLOGIC: Alert and oriented x 4. Strength and sensation to light touch were grossly intact x 4, cranial nerves 2-12 are grossly intact. Psych: Depressed affect Course Course Course Narrative: 55-year-old male with history and clinical presentation consistent with depression, vague suicidal statements. Review of all investigations negative for acute findings and patient is otherwise medically cleared for further evaluation by the behavioral team. Reevaluation(s) Reevaluation #1: Patient placed in physician observation because the patient needed more time for behavioral evaluation. At the time observation was started the patient's vital signs were stable, patient is alert and oriented, neuro: Nonfocal, CV RRR, lungs clear Time: 06:16 MDM - Psych Lab Data Labs: Lab Results 03/19/21 03/19/21 Range/Units 03:34 03:34 Urine Opiates Screen Not Detected (Not Detect) Urine Fentanyl Screen POSITIVE H (Not Detect) Ur Barbiturates Screen Not Detected (Not Detect) Ur Phencyclidine Scrn Not Detected (Not Detect) Ur Amphetamines Screen Not Detected (Not Detect) U Benzodiazepines Scrn Not Detected (Not Detect) Urine Cocaine Screen POSITIVE H (Not Detect) U Marijuana (THC) Screen Not Detected (Not Detect) COVID-19 ([facility]) Negative (Negative) COVID-19 Clin Com See Note ECG Data Attestation: I personally reviewed and interpreted this ECG as follows: Prior ECG tracings: available for review (02/16/2021 no acute changes on comparison) Interpretation: Sinus rhythm, HR-74, no STEMI, IL/QRS/QTC are within normal limits. Discharge Plan Discharge Clinical Impression: Depression, Feeling suicidal Patient Disposition: Still a Patient Prescriptions: No Action pantoprazole 40 mg tablet,delayed release (DR/EC) 1 tab PO BID RF: 0 fluoxetine 20 mg capsule 20 mg PO DAILY RF: 0 risperidone 1 mg tablet 1 tab PO BID RF: 0
[2021-03-19 04:06] LABS: COVID-19 Test Negative (Negative); IDNOW Serial# 9DD0AD1C
[2021-03-19 04:09] LABS: Amphetamine Screen Urine Not Detected (Not Detect); Barbiturates, Urine Not Detected (Not Detect); Benzodiazepines Screen Urine Not Detected (Not Detect); Cannabinoid Screen Urine Not Detected (Not Detect); Cocaine Screen Urine POSITIVE (Not Detect); Fentanyl, urine POSITIVE (Not Detect); Opiate Screen Urine Not Detected (Not Detect); Phencyclidine Screen Urine Not Detected (Not Detect)
--- NOTE | 2021-03-19 06:41 | PC.NURSE ---
Patient slept well, no distress observed/reported, EKG negative, behavior appropriate, [facility] referral completed/confirmed, med rec completed/approved by the provider/MAR live, VSS, will continue to monitor.
--- NOTE | 2021-03-19 07:11 | PC.NURSE ---
patient appears to remain at rest at present, respoirations are even and unlabored, patient appears in no distress.
--- NOTE | 2021-03-19 10:57 | MHC.RECOVSUP ---
? Reason for consult:Recovery Support o Current location:[facility] o Identified substance use concern: Crack Cocaine - Seeking ATS (detox) - Support ? Intervention: o Harm reduction discussion ? Plan: o Patient to follow up with [facility] after discharge ? Additional information:Patient was not agrreeable to go to detox. Pt. was adamant about seeing [facility], and going to [facility]pite. Pt. became irate and abusive in speech.
--- NOTE | 2021-03-19 11:35 | MHC.CARE ---
Pt is a 55 y/o, , bi lingual Tanzanian/Finnish speaking, male, who is previously unknown to the CARE Team.? Today, pt self-presented to the [facility] ED with a complaint of being overwhelmed and expressed that he is ?done?.? Patient states he is homeless and has not eaten for 4 days and he cannot ?take it? any longer.? Patient states that he has made multiple attempts to call respite but no one has returned his phone calls.? Pt expressed that he is interested in receiving help for his addiction.? Pt has been medically cleared and is being assessed by the CARE Team to determine appropriate treatment recommendations. Pt is presently not taking his medications, stating he has been off them approximately 2 weeks, as he left them at a home he was staying at that he no longer has access to.? Pt is presently homeless stating that he was staying at ?Friends? house but was only able to stay as long as he had crack to provide to them.? Past documented hx of Major Depressive d/o. ?Pt tested positive for cocaine and fentanyl.? No known hx of suicide attempts. Pt is awoken and assessed in his room in the Behavioral Health Pod.? He is alert and oriented x4, appears older than his stated age, is dressed in hospital attire and appears his stated age.? He is engaged in the assessment and is help seeking stating that he no longer wants to live the way he is presently living.? He expressed an interest in recovery resources and appears future oriented wanting to return back to his family after achieving sobriety and ?be productive for them?.? He stated he has 6 children and grandchildren he wants to interact with.? His eye contact and speech are within normal limits.? He reports poor sleep prior to last evening and stated that he had not eaten in ?4 days?.? He describes his mood as ?depressed? with congruent affect.? He stated that he ?Lost everything?, explaining everything as his home and family.? He expresses frustration with his present situation of being homeless and not an active member of his family.? He does not appear delusional or experiencing symptoms of psychosis.? He denies AVH, but did state that he experienced hallucinations in the past.? He did not describe the hallucinations, even when asked for specifics.? Pt did not answer when asked if he was using drugs at the time he experienced hallucinations.? Pt denies SI, HI, , and self-harm urges.? Insight, judgement, and impulse control appear poor.? Memory appears good. Pt is presently homeless and has been by his report ?For a while?.? He has been staying in friends and acquaintances homes intermittently, allowed to do so if he had crack cocaine to provide them.? He is help seeking, asking for respite and expressing interest in recovery resources. CARE Team contacts the Recovery Team regarding this pt.? Recovery Team is briefed regarding the case and pt is seen by the on duty environmental technician.? Recovery team reports that pt is not interested in Recovery resources and only wants [facility]. CARE Team and [employer]ender meet with pt to discuss his options and to clear up any misunderstanding of any information provided to him.? CARE Team and Recovery engage with pt who grows agitated, loud and profane yelling at both.? Pt refuses all assistance related to Recovery resources stating he knows what he needs and it is respite and only respite.? Pt demands to be discharged immediately.? Due to the high level of agitation, CARE Team and Recovery terminate the conversation as it had become unproductive. CARE Team contacts [facility] and discusses the possibility of Lyfting him to that location for assessment to be considered for an overnight stay.? In speaking with staff there, it was explained that pt?s drug use, specifically a positive test for a substance, would be a barrier to [facility] respite.? Living room staff suggested [facility] in [place] as an option. CARE Team speaks with pt regarding the Living room.? Pt abruptly cuts CARE Team off stating he already called [facility] and ?I handled it myself?.? CARE Team offers pt the contact information for [facility].? Pt accepts.? CARE Team offered pt a ride which he declines.? CARE Team offers information regarding the barriers to respite outlined by [facility].? Pt declined. Plan is for pt to be discharged as he does not meet criteria for inpatient admission.? This disposition was discussed with and agreed upon by CARE Paediatrician Ascencion PATTON, ED provider Jelani Mckenna, and pt?s nurse Gary Forbes.
== END 2021-03-19 11:44 | disposition home or self-care (01) ==
PROVIDERS: Emergency Provider Student in an Organized Health Care Education/Training Program
DX: F32.9 Major depressive disorder, single episode, unspecified (principal); R45.851 Suicidal ideations; Z20.822 Contact with and (suspected) exposure to COVID-19; F41.9 Anxiety disorder, unspecified; F14.90 Cocaine use, unspecified, uncomplicated; F17.200 Nicotine dependence, unspecified, uncomplicated; Z79.899 Other long term (current) drug therapy
CPT/HCPCS: 36415; 71046; 80307; 87635; 93005; 99284

== ENCOUNTER 2021-09-15 13:41 | Emergency (ER) | payer OTHER, SELFPAY ==
--- NOTE | ~2021-09-15 | XR_ITS ---
EXAMINATION: XR KNEE, RIGHT CLINICAL INFORMATION: Fall with right knee pain COMPARISON: Right knee radiographs 06/04/2020 TECHNIQUE: Four views of the right knee. FINDINGS: Bones and soft tissues are normal. No fracture or joint effusion. Alignment is anatomic. Joint spaces are well maintained. No abnormal soft tissue calcification. XR/XR knee RT 4V IMPRESSION: Normal right knee.
[2021-09-15 13:45] VITALS: BP 130/78; PULSE 70; O2SAT 99
--- NOTE | 2021-09-15 13:48 | ED_ITS ---
HPI - Fall General Chief Complaint: Fall Stated Complaint: R KNEE PAIN S/P FALL Time Seen by Provider: 09/15/21 13:44 Source: patient and EMS Mode of arrival: EMS Limitations: no limitations History of Present Illness HPI Narrative: 55 y/o male presents to the ER for evaluation of right knee pain s/p trip and fall in an uneven parking lot about 5 hours ago. He states he Tripped on uneven pavement and tried to break his fall by putting all of his weight on his right leg. He thinks his knee hyperextended. He fell onto his left side. He did not hit his head or lose consciousness. He is not on any anticoagulation. He reports pain in the lateral aspect of the right knee. He has pain when it is completely extended and when he is walking. He cannot bend it when he is walking. No other injuries. complaint: fall Onset (ago): hour(s) Fall from: standing Fall witnessed: no Place fall occurred: street Loss of consciousness: none Prolonged down time: no Symptoms prior to fall: none Context: tripped/slipped Location of injury - extremities: right: knee Severity: moderate Severity scale (1-10): 6 Quality: sharp Associated symptoms (after fall): denies Related Data Previous Rx's Medication Instructions Recorded risperidone 1 mg tablet 1 mg PO BID #60 tab 04/22/21 fluoxetine 20 mg capsule 20 mg PO DAILY #30 cap 06/01/21 acetaminophen 500 mg tablet 500 mg PO Q6H PRN 30 Days #120 tab 06/16/21 dextromethorphan-guaifenesin 10 10 ml PO Q4H PRN #500 ml 06/16/21 mg-100 mg/5 mL oral liquid (Adult Tussin Cough Congestion DM) omeprazole 20 mg capsule,delayed 20 mg PO BID 30 Days #60 cap 06/23/21 release miscellaneous medical supply 1 ea MISCELLANEOUS DAILY #1 ea 07/09/21 miscellaneous medical supply 1 ea MISCELLANEOUS DAILY #1 ea 07/21/21 valacyclovir 1 gram tablet 1,000 mg PO Q8H 7 Days #21 tab 07/21/21 (Valtrex) albuterol sulfate 90 mcg/actuation 2 puff INHALATION Q6H PRN #8.5 g 08/24/21 aerosol inhaler clonazepam 1 mg tablet 1 mg PO DAILY PRN 30 Days #30 tab 08/24/21 Allergies Allergy/AdvReac Type Severity Reaction Status Date / Time codeine [CODEINE] Allergy Intermediate RASH, Verified 06/23/21 16:56 shortness of breath ibuprofen [IBUPROFEN] Allergy Intermediate RASH/HIVES, Verified 06/23/21 16:56 redness and itching latex Allergy Intermediate redness Verified 06/23/21 16:56 and itching Review of Systems Review of Systems: Constitutional: No Fever, No Chills ENT/Mouth: No sore throat, No Rhinorrhea, No Swallowing Difficulty Cardiovascular: No Chest Pain, No SOB Gastrointestinal: No Nausea, No Vomiting, No abdominal Pain Musculoskeletal: + joint pain, + Myalgias Skin: No Skin Lesions, No rash Neuro: No Weakness, No Numbness, No Dizziness, No Headache Psych: No Anxiety/Panic, No Depression Heme/Lymph: No Bruising, No Lymphadenopathy Endocrine: No Polyuria, No Polydipsia PMFSH Past Medical History Medical History (Updated 09/15/21 @ 15:07 by BARB Sheldon) Anxiety Anxiety and depression Bipolar disorder Cataracts, bilateral Cervical disc disease Cervical pain Chronic low back pain Early satiety Elevation of adrenocorticotropic hormone (ACTH) Epigastric pain Erectile dysfunction Genital herpes GERD (gastroesophageal reflux disease) Knee pain, right Mixed hyperlipidemia Obesity (BMI 30-39.9) Overweight (BMI 25.0-29.9) Polyarthralgia Smoker Superficial gastritis without hemorrhage Weight loss, non-intentional Surgical History H/O eye surgery History of esophagogastroduodenoscopy (EGD) History of inguinal hernia repair Hx of colonoscopy Family History Family History Father Medical history unknown Mother Chronic mental illness Schizophrenia Diabetes Kidney problem Dialysis patient HTN (hypertension) Family/Other FH: mental illness Maternal Grandfather Prostate cancer Paternal Grandfather Lung cancer Social History Social History Household Members: Other Household Members Other:: Pt reports daughter(Sabrina) and his grandson Housing: Apartment Are you a primary critical care physician to a significant other at home: No Do you presently have visiting nurse or other home services: No Alcohol intake: never Patient Tobacco Use Status: Current everyday Tobacco user Tobacco use type: Cigarette Cigarettes Per Day: 4 Years Smoked: 40 Second Hand Smoke Exposure: No Substance Use Type: Crack/Cocaine Advance Directives: Yes Advance Directives Information Provided: Yes Advance Directives on File: No service: No Current occupational status: disabled Sexual orientation: Straight/Heterosexual Physical Exam Vital Signs: Vital Signs: Last Vital Signs Temp 97.8 F 09/15/21 13:54 Pulse 79 09/15/21 13:54 Resp 18 09/15/21 13:54 BP 130/67 09/15/21 13:54 Pulse Ox 98 09/15/21 13:54 BMI result Body Mass Index 33.4 Appearance: Alert. Oriented X3. No acute distress. HEENT: normal inspection CVS: Normal heart rate and rhythm. Pulses normal. Respiratory: No respiratory distress. Skin: Skin warm and dry. Normal skin color. Normal skin turgor. No rashes. Extremities: Normal inspection of the right knee, tenderness of the lateral joint line. Negative anterior drawer text. Neuro: Oriented X 3. No motor deficit. No sensory deficit. Gait not tested due to pain Course Course Course Narrative: 55 y/o male presents to the ER for evaluation of right knee pain s/p fall earlier today. Lateral joint line pain without laxiety on exam. XR pending. Declining need for pain medication at this time. Reevaluation(s) Reevaluation #1: XR is normal. Placed in LUZ MARIA wrap for compression and support. Stable for d/c home with plan to follow up with Orthopedics. Patient agrees with plan. Critical Care Time Critical Care Time Critical Care Time: No Discharge Plan Discharge Clinical Impression: Knee sprain Patient Disposition: Home, Self-Care Instructions: Knee Sprain (DC), R.I.C.E. Treatment (ED) Additional Instructions: Your x-ray today was normal. Rest your knee and elevate your leg when possible. Recommend LUZ MARIA wrap for support and compression. Use ice several times per day for the next 48 hours. Follow up with Orthopedics for further evaluation - name and number below. You may bear weight as tolerated. If pain is too severe, use crutches until better. Take Motrin and/or Tylenol as needed for pain. Follow up with your doctor as needed. Prescriptions: No Action risperidone 1 mg tablet 1 mg PO BID Qty: 60 1RF fluoxetine 20 mg capsule 20 mg PO DAILY Qty: 30 1RF acetaminophen 500 mg tablet 500 mg PO Q6H PRN (Reason: pain) 30 Days Qty: 120 1RF dextromethorphan-guaifenesin [Adult Tussin Cough Congest DM] 10-100 mg/5 mL liquid 10 ml PO Q4H PRN (Reason: cough) Qty: 500 0RF miscellaneous medical supply Misc 1 ea miscellaneous DAILY Qty: 1 0RF Rx Instructions: Cane- with rubber handle - length of need 99+ Height 5'6 miscellaneous medical supply Misc 1 ea miscellaneous DAILY Qty: 1 0RF Rx Instructions: Back Belt Support - length of time 99+ Height 5 6 weight 207Lbs BMI 33.4 valacyclovir [Valtrex] 1 gram tablet 1,000 mg PO Q8H 7 Days Qty: 21 0RF albuterol sulfate 90 mcg/actuation HFA aerosol inhaler 2 puff inhalation Q6H PRN (Reason: shortness of breath or wheezing) Qty: 8.5 0RF clonazepam 1 mg tablet 1 mg PO DAILY PRN (Reason: anxiety) 30 Days Qty: 30 0RF omeprazole 20 mg capsule,delayed release(DR/EC) 20 mg PO BID 30 Days Qty: 60 2RF Referrals: Elvia Guardado PA-C [Physician Online Marketing Coordinator] - (lateral right knee pain s/p fall, XR normal)
[2021-09-15 13:54] VITALS: BP 130/67; PULSE 79; RESP 18; TEMP 36.6; O2SAT 98; BMI 33.4
== END 2021-09-15 15:16 | disposition home or self-care (01) ==
PROVIDERS: Emergency Provider Emergency Medicine; PCP Internal Medicine
DX: S83.91XA Sprain of unspecified site of right knee, initial encounter (principal); W01.0XXA Fall on same level from slipping, tripping and stumbling without subsequent striking against object, initial encounter; Y93.01 Activity, walking, marching and hiking; Y92.481 Parking lot as the place of occurrence of the external cause; Y99.9 Unspecified external cause status
CPT/HCPCS: 73564; 99283

== ENCOUNTER 2021-10-05 10:55 | Emergency (ER) | payer OTHER, SELFPAY ==
[2021-10-05 11:43] VITALS: BP 114/79; PULSE 92; RESP 18; TEMP 37.1; O2SAT 98; BMI 34.2
--- NOTE | 2021-10-05 13:01 | ED_ITS ---
HPI - Male Genitourinary General Chief complaint: Urogenital-Male Stated complaint: rash outbreak , reynolds and itch , genetils bleeding Time Seen by Provider: 10/05/21 12:34 Source: patient Mode of arrival: ambulatory Limitations: no limitations History of Present Illness HPI Narrative: 56 years old male came in for evaluation of painful rash on his genitalia. Patient been diagnosed with gentle herpes simplex since 2010 with periodic flare up when he get stressed out, patient confirmed he is not diabetic and has no blood sugar problem. Patient is sexually not active and confirm that he has no risk for STD at the current time, patient is Jehov[employer] Witness and adamantly refused to give blood sample for any further testing which is against his strong believe. Patient reported dysuria and frequency urination, with small painful rash is on the penis with no blistering or vesicles started close to 24 hours ago. no fever or chills. Patient also reported rashes on both arms. Related Data Previous Rx's Medication Instructions Recorded risperidone 1 mg tablet 1 mg PO BID #60 tabs 04/22/21 fluoxetine 20 mg capsule 20 mg PO DAILY #30 caps 06/01/21 acetaminophen 500 mg tablet 500 mg PO Q6H PRN pain 30 days 06/16/21 #120 tabs dextromethorphan-guaifenesin 10 10 ml PO Q4H PRN cough #500 mL 06/16/21 mg-100 mg/5 mL oral liquid (Adult Tussin Cough Congestion DM) miscellaneous medical supply 1 ea miscellaneous DAILY #1 ea 07/09/21 miscellaneous medical supply 1 ea miscellaneous DAILY #1 ea 07/21/21 valacyclovir 1 gram tablet 1,000 mg PO Q8H 7 days #21 tabs 07/21/21 (Valtrex) albuterol sulfate 90 mcg/actuation 2 puff inhalation Q6H PRN 08/24/21 aerosol inhaler shortness of breath or wheezing #8.5 grams omeprazole 20 mg capsule,delayed 20 mg PO BID #180 caps 09/18/21 release clonazepam 1 mg tablet 1 mg PO DAILY PRN anxiety 30 days 09/24/21 #30 tabs diphenhydramine HCl 25 mg tablet 25 mg PO Q8H PRN itching #20 tabs 10/05/21 (Benadryl Allergy) prednisone 20 mg tablet 20 mg PO DAILY #5 tabs 10/05/21 valacyclovir 1 gram tablet 1,000 mg PO DAILY #5 tabs 10/05/21 (Valtrex) Allergies Allergy/AdvReac Type Severity Reaction Status Date / Time codeine [CODEINE] Allergy Intermediate RASH, Verified 10/05/21 11:49 shortness of breath ibuprofen [IBUPROFEN] Allergy Intermediate RASH/HIVES, Verified 10/05/21 11:49 redness and itching latex Allergy Intermediate redness Verified 10/05/21 11:49 and itching Review of Systems Review of Systems: All other systems are reviewed and are negative Constitutional: Reports as per HPI and Reports no additional constitutional complaints Eyes: Reports as per HPI and Reports no additional eye complaints Reports system reviewed and no additional complaints, except as documented Cardiovascular: Reports as per HPI and Reports no additional cardiovascular complaints Respiratory: Reports as per HPI and Reports no additional respiratory complaints Gastrointestinal: Reports as per HPI and Reports no additional gastrointestinal complaints Genitourinary: Reports no additional female genitourinary complaints Musculoskeletal: Reports no additional musculoskeletal complaints Skin/Breast: Reports system reviewed and no additional complaints, except as docu Psychiatric: Reports no additional psychiatric complaints Endocrine: Reports no additional endocrine complaints Hematologic/Lymphatic: Reports no additional hematologic/lymphatic complaints Allergic/Immunologic: Reports no additional allergic/immunologic complaints Reports system reviewed and no additional complaints, except as documented and Reports Abnormal speech present [facility] Past Medical History Surgical History H/O eye surgery History of esophagogastroduodenoscopy (EGD) History of inguinal hernia repair Hx of colonoscopy Family History Family History Father Medical history unknown Mother Chronic mental illness Schizophrenia Diabetes Kidney problem Dialysis patient HTN (hypertension) Family/Other FH: mental illness Maternal Grandfather Prostate cancer Paternal Grandfather Lung cancer Social History Social History Household Members: Other Household Members Other:: Pt reports daughter(Sabrina) and his grandson Housing: Apartment Are you a primary day care supervisor to a significant other at home: No Do you presently have visiting nurse or other home services: No Alcohol intake: never Patient Tobacco Use Status: Current everyday Tobacco user Tobacco use type: Cigarette Cigarettes Per Day: 4 Years Smoked: 40 Second Hand Smoke Exposure: No Substance Use Type: Crack/Cocaine Advance Directives: No Advance Directives Information Provided: No service: No Current occupational status: disabled Sexual orientation: Straight/Heterosexual Physical Exam Vital Signs: Vital Signs: Last Vital Signs Temp 98.7 F 10/05/21 11:43 Pulse 92 10/05/21 11:43 Resp 18 10/05/21 11:43 BP 114/79 10/05/21 11:43 Pulse Ox 98 10/05/21 11:43 O2 Del Method 10/05/21 11:43 BMI result Body Mass Index 34.2 Vital signs have been reviewed as appeared to be correct. Blood pressure normal. Heart rate normal. Respiration rate normal. Temperature normal. Oxygen saturation normal. Appearance: Alert. Oriented X3. No acute distress. Head: Normal external exam. Normocephalic. Atraumatic. No Robins signs noted. No raccoon eyes noted Eyes: PERRLA. EOMI. Conjunctiva and sclera normal. Eyelids normal. ENT: TM's Normal. Pharynx normal. Uvula midline. Moist mucous membranes. No trismus noted. No drooling noted. No muffled voice noted. Neck: Normal inspection. Neck supple. FROM. No adenopathy. Thyroid Normal. No meningeal signs. No neck mass noted. CVS: Normal heart rate and rhythm. Heart sound normal. No murmurs noted. Pulses normal throughout. Respiratory: No respiratory distress. Painless inspiration. Breath sounds normal. No wheezes/rales/rhonchi noted. Chest nontender. No accessory muscle usage noted or decreased air movement noted. Abdomen: Soft and nontender. Bowel sounds normal in all 4 quadrants. No distention noted. No organomegaly noted. No visible injury noted. exam: Small tiny red maculopapular rash on the penis, no vesicles, no discharge, no palpable lymph node. Back: No CVA tenderness. Full range of motion noted. Skin: Skin warm and dry. Normal skin color. Normal skin turgor. No rashes/lesions/lacerations noted. Extremities: No lower extremity edema. Extremities exhibit normal range of motion. Extremities nontender. Neuro: Oriented X 3. Cranial nerve exam: II-XII are grossly intact No motor deficit. No sensory deficit. Reflexes normal. Course Course Course Narrative: Assessment and plan. 56-year-old male patient refusing any further testing for other STDs but confirm history of genital herpes simplex for over 10 years with sporadic flare up, presented with painful small rashes on the genitalia for id patient normally get him when he is stressed out, usually prescribed Valtrex and prednisone to get better. MDM - Male Genitourinary Lab Data Attestation: I reviewed the patient's lab results. Labs: Lab Results 10/05/21 Range/Units 13:03 Urine Color STRAW Urine Appearance CLEAR Urine pH 6.0 (5.0-8.0) Ur Specific [place] <= 1.005 (1.005-1.025) Urine Protein NEG (NEG-TRACE) MG/DL Urine Glucose (UA) NEG (NEG) MG/DL Urine Ketones NEG (NEG) MG/DL Urine Blood NEG (NEG) Urine Nitrite NEG (NEG) Ur Leukocyte Esterase NEG (NEG) Discharge Plan Discharge Clinical Impression: Genital herpes Patient Disposition: Home, Self-Care Instructions: Sexually Transmitted Diseases (ED) Prescriptions: New valacyclovir [Valtrex] 1 gram tablet 1,000 mg PO DAILY Qty: 5 0RF prednisone 20 mg tablet 20 mg PO DAILY Qty: 5 0RF diphenhydramine HCl [Benadryl Allergy] 25 mg tablet 25 mg PO Q8H PRN (Reason: itching) Qty: 20 0RF No Action risperidone 1 mg tablet 1 mg PO BID Qty: 60 1RF fluoxetine 20 mg capsule 20 mg PO DAILY Qty: 30 1RF acetaminophen 500 mg tablet 500 mg PO Q6H PRN (Reason: pain) 30 Days Qty: 120 1RF dextromethorphan-guaifenesin [Adult Tussin Cough Congest DM] 10-100 mg/5 mL liquid 10 ml PO Q4H PRN (Reason: cough) Qty: 500 0RF miscellaneous medical supply Misc 1 ea miscellaneous DAILY Qty: 1 0RF Rx Instructions: Cane- with rubber handle - length of need 99+ Height 5'6 miscellaneous medical supply Misc 1 ea miscellaneous DAILY Qty: 1 0RF Rx Instructions: Back Belt Support - length of time 99+ Height 5 6 weight 207Lbs BMI 33.4 valacyclovir [Valtrex] 1 gram tablet 1,000 mg PO Q8H 7 Days Qty: 21 0RF albuterol sulfate 90 mcg/actuation HFA aerosol inhaler 2 puff inhalation Q6H PRN (Reason: shortness of breath or wheezing) Qty: 8.5 0RF omeprazole 20 mg capsule,delayed release(DR/EC) 20 mg PO BID Qty: 180 0RF clonazepam 1 mg tablet 1 mg PO DAILY PRN (Reason: anxiety) 30 Days Qty: 30 0RF Referrals: Philippe Lal MD [Primary Care Provider] - Interventions: ED Discharge Assessment Last Done: 10/05/21 13:53 Discharge Date/Time: 10/05/21 13:59 Print Language: Italian
[2021-10-05] MEDS: diphenhydrAMINE HCL 25 MG TABLET PO (13:12)
[2021-10-05] MEDS: predniSONE 20 MG TABLET PO (13:12)
[2021-10-05 13:22] LABS: Appearance Urine CLEAR; Color Urine STRAW; Glucose Urine UA NEG (NEG); Leukocyte Esterase Urine NEG (NEG); Nitrite Urine NEG (NEG); Specific Gravity - Urine <= 1.005 (1.005-1.025); Urine Blood NEG (NEG); Urine Ketones NEG (NEG); Urine Protein NEG (NEG-TRACE)
[2021-10-05 14:41] LABS: CT PCR NOT DETECTED (Not Detect.); NG PCR NOT DETECTED (Not Detect.)
== END 2021-10-05 13:59 | disposition home or self-care (01) ==
PROVIDERS: Emergency Provider Emergency Medicine; PCP Internal Medicine
DX: B00.9 Herpesviral infection, unspecified (principal); R21 Rash and other nonspecific skin eruption; R30.0 Dysuria; Z20.2 Contact with and (suspected) exposure to infections with a predominantly sexual mode of transmission; Z79.899 Other long term (current) drug therapy
CPT/HCPCS: 81003; 87491; 87591; 99283; Q0163

== ENCOUNTER 2021-10-28 08:00 | Emergency (ER) | payer OTHER, SELFPAY ==
--- NOTE | ~2021-10-28 | XR_ITS ---
EXAMINATION: XR CHEST CLINICAL INFORMATION: Chest pain COMPARISON: 03/19/2021 TECHNIQUE: 2 views of the chest were obtained. FINDINGS: Lungs are clear. No focal consolidation or mass. Normal pulmonary vascularity. No pleural effusion or pneumothorax. Normal heart size. No acute osseous abnormality. XR/XR chest 2V IMPRESSION: No acute pulmonary disease.
--- NOTE | 2021-10-28 08:09 | ECG_ITS ---
Test Reason : chest pain Blood Pressure : / mmHG Vent. Rate : 085 BPM Atrial Rate : 085 BPM P-R Int : 122 ms QRS Dur : 082 ms QT Int : 342 ms P-R-T Axes : 035 050 049 degrees QTc Int : 406 ms Normal sinus rhythm Normal ECG When compared to the previous EKG of No significant changes seen Referred By: Generic ED Physician Electronically Signed By:Cornelius Mejia
[2021-10-28 09:01] VITALS: BP 130/87; PULSE 88; RESP 14; TEMP 36.6; O2SAT 96; BMI 33.2
[2021-10-28 12:55] LABS: MANUAL DIFF FLAG NO
[2021-10-28 12:58] LABS: Basophils Absolute Auto 0.1 X10*3/uL (0.0-0.2); Basophils Percent Auto 0.9 % (0-2); Eosinophils Absolute Auto 0.3 X10*3/uL (0.0-0.4); Eosinophils Percent Auto 3.4 % (0-4); Hematocrit 52.3 % (42.0-52.0); Hemoglobin 17.2 g/dl (14.0-18.0); Imm Gran Abs Auto 0.05 X10*3/uL (0.00-0.03); Imm Gran Pct Auto 0.6 % (0.0-0.4); Lymphocytes Absolute Auto 2.4 X10*3/uL (1.2-4.9); Lymphocytes Percent Auto 26.9 % (20-40); Mean Corpuscular HGB Conc 32.9 g/dl (31.0-36.0); Mean Corpuscular Hemoglobin 30.4 pg (27.0-33.0); Mean Corpuscular Volume 92.4 fL (80.0-98.0); Mean Platelet Volume 8.5 fL (9.4-12.4); Monocytes Absolute Auto 1.1 X10*3/uL (0.1-1.2); Monocytes Percent Auto 12.2 % (2-11); Platelet Count 286 X10*3/uL (160-400); Red Blood Count 5.66 X10*6/uL (4.60-5.80); Red Cell Distribution Width 13.2 % (11.0-16.0); White Blood Count 8.9 X10*3/uL (4.8-10.8)
[2021-10-28 13:14] LABS: Anion Gap 11 (12-20); Blood Urea Nitrogen 22 mg/dL (9-16); Calcium 9.7 mg/dL (8.4-10.2); Carbon Dioxide 28 mmol/L (22-29); Chloride 105 mmol/L (96-108); Creatinine Clr Calc Pharmacy 82.1; Estimated Glomerular Filt Rate > 60; Glucose Random 114 mg/dL (60-115); Potassium 5.2 mmol/L (3.3-5.1); Sodium 139 mmol/L (135-145)
[2021-10-28 13:18] LABS: Troponin-I High Sensitivity < 3.5 ng/L (<3.5-35.0)
--- NOTE | 2021-10-28 15:06 | ED_ITS ---
HPI - Chest Pain General Chief Complaint: Chest Pain Stated Complaint: Chest pain/back pain Time Seen by Provider: 10/28/21 15:04 Source: patient Mode of arrival: ambulatory Limitations: no limitations History of Present Illness HPI narrative: 56-year-old male cocaine and fentanyl user presents to the emergency department 1 day after getting a rehab. States he was bending over to take out the trash when he had sudden onset of pain to his chest and he broke into a sweat. Patient states pain returns back states he never had this problem past denies any fevers or chills denies cough nausea vomiting or diarrhea. Patient was awaiting for over 7 hours prior to me seeing him his labs and x-ray were all unremarkable.t complaint: chest pain Related Data Previous Rx's Medication Instructions Recorded risperidone 1 mg tablet 1 mg PO BID #60 tabs 04/22/21 fluoxetine 20 mg capsule 20 mg PO DAILY #30 caps 06/01/21 acetaminophen 500 mg tablet 500 mg PO Q6H PRN pain 30 days 06/16/21 #120 tabs dextromethorphan-guaifenesin 10 10 ml PO Q4H PRN cough #500 mL 06/16/21 mg-100 mg/5 mL oral liquid (Adult Tussin Cough Congestion DM) miscellaneous medical supply 1 ea miscellaneous DAILY #1 ea 07/09/21 miscellaneous medical supply 1 ea miscellaneous DAILY #1 ea 07/21/21 valacyclovir 1 gram tablet 1,000 mg PO Q8H 7 days #21 tabs 07/21/21 (Valtrex) omeprazole 20 mg capsule,delayed 20 mg PO BID #180 caps 09/18/21 release clonazepam 1 mg tablet 1 mg PO DAILY PRN anxiety 30 days 09/24/21 #30 tabs diphenhydramine HCl 25 mg tablet 25 mg PO Q8H PRN itching #20 tabs 10/05/21 (Benadryl Allergy) prednisone 20 mg tablet 20 mg PO DAILY #5 tabs 10/05/21 valacyclovir 1 gram tablet 1,000 mg PO DAILY #5 tabs 10/05/21 (Valtrex) albuterol sulfate 90 mcg/actuation 2 puff inhalation Q6H PRN 10/16/21 aerosol inhaler shortness of breath or wheezing #8.5 grams Allergies Allergy/AdvReac Type Severity Reaction Status Date / Time codeine [CODEINE] Allergy Intermediate RASH, Verified 10/05/21 11:49 shortness of breath ibuprofen [IBUPROFEN] Allergy Intermediate RASH/HIVES, Verified 10/05/21 11:49 redness and itching latex Allergy Intermediate redness Verified 10/05/21 11:49 and itching Review of Systems Review of Systems: Review of systems: General: Patient denies any fever chills recent illness or falls Musculoskeletal: Denies back pain or body aches or other injuries HEENT: denies headache, runny nose, ear pain Respiratory: denies shortness of breath, cough Cardiovascular: chest pain no palpitations : denies dysuria, frequency Abdomen: no nausea vomiting denies abdominal pain Extremities: no swelling, no pain Skin: no diaphoresis Yes all other systems are reviewed and are negative [facility] Past Medical History Attestation statement: The following information was validated with the patient. Medical History (Updated 10/28/21 @ 15:32 by Madi Sewell DO) Anxiety Anxiety and depression Bipolar disorder Cataracts, bilateral Cervical disc disease Cervical pain Chronic low back pain Early satiety Elevation of adrenocorticotropic hormone (ACTH) Epigastric pain Erectile dysfunction Genital herpes GERD (gastroesophageal reflux disease) Knee pain, right Mixed hyperlipidemia Obesity (BMI 30-39.9) Overweight (BMI 25.0-29.9) Polyarthralgia Smoker Superficial gastritis without hemorrhage Weight loss, non-intentional Surgical History H/O eye surgery History of esophagogastroduodenoscopy (EGD) History of inguinal hernia repair Hx of colonoscopy Family History Family History Father Medical history unknown Mother Chronic mental illness Schizophrenia Diabetes Kidney problem Dialysis patient HTN (hypertension) Family/Other FH: mental illness Maternal Grandfather Prostate cancer Paternal Grandfather Lung cancer Social History Social History Household Members: Other Household Members Other:: Pt reports daughter(Sabrina) and his grandson Housing: Apartment Are you a primary health care consultant to a significant other at home: No Do you presently have visiting nurse or other home services: No Alcohol intake: never Patient Tobacco Use Status: Current everyday Tobacco user Tobacco use type: Cigarette Cigarettes Per Day: 4 Years Smoked: 40 Smoked in Last 30 Days: Yes Second Hand Smoke Exposure: No Use of substances other than those prescribed or required for medical reasons: Yes Substance Use Type: Crack/Cocaine Last Used Substance: Weeks (ago) Any prior treatment program specific to substance use: Yes Advance Directives: No Advance Directives Information Provided: No service: No Current occupational status: disabled Sexual orientation: Straight/Heterosexual Physical Exam Vital Signs: Vital Signs: Last Vital Signs Temp 97.9 F 10/28/21 16:17 Pulse 73 10/28/21 16:17 Resp 14 10/28/21 16:17 BP 127/67 10/28/21 16:17 Pulse Ox 97 10/28/21 16:17 O2 Del Method 10/28/21 16:17 BMI result Body Mass Index 33.2 General: Well-appearing well-nourished in no signs of distress HEENT: Normocephalic atraumatic Neck: No signs of JVD, no masses no tenderness or lymphadenopathy Cardiovascular: Regular rate and rhythm Respiratory: Clear to auscultation bilaterally Abdomen: Soft nontender no masses Extremities: Normal pedal pulses no signs of edema Skin: Dry warm no rashes Back: No tenderness full ROM MDM - Chest Pain MDM Narrative Medical decision making narrative: 56 year old with chest pain. I will get a 2nd troponin pain is very minor at this time. Unlikely to be ACS no concern for dissection I will give maalox, aspirin, pepcid and reassess. Repeat EKG is normal 2nd trop is negative. I will send home with PCP follow up. Repeat Troponin is normal still with pain unlikely to be ACS I explained this to the patient and will have them follow up with their PCP. Differential Diagnosis Differential diagnosis: Likely stable angina, unstable angina pectoris and atypical chest pain Lab Data Result diagrams: 10/28/21 12:50 10/28/21 12:50 Labs: Lab Results 10/28/21 10/28/21 10/28/21 Range/Units 12:50 12:50 12:50 WBC 8.9 (4.8-10.8) X10*3/uL RBC 5.66 (4.60-5.80) X10*6/uL Hgb 17.2 (14.0-18.0) g/dl Hct 52.3 H (42.0-52.0) % MCV 92.4 (80.0-98.0) fL MCH 30.4 (27.0-33.0) pg MCHC 32.9 (31.0-36.0) g/dl RDW 13.2 (11.0-16.0) % Plt Count 286 (160-400) X10*3/uL MPV 8.5 L (9.4-12.4) fL Immature Gran % (Auto) 0.6 H (0.0-0.4) % Neut % (Auto) 56.0 (45-73) % Lymph % (Auto) 26.9 (20-40) % [place] % (Auto) 12.2 H (2-11) % Eos % (Auto) 3.4 (0-4) % Baso % (Auto) 0.9 (0-2) % Lymph # (Auto) 2.4 (1.2-4.9) X10*3/uL [place] # (Auto) 1.1 (0.1-1.2) X10*3/uL Eos # (Auto) 0.3 (0.0-0.4) X10*3/uL Baso # (Auto) 0.1 (0.0-0.2) X10*3/uL Abs Immat Gran (auto) 0.05 H (0.00-0.03) X10*3/uL Absolute Neuts (auto) 5.0 (2.0-8.3) x10*3/uL Absolute Nucleated RBC 0.000 (0.0-0.012) X10*3/uL Nucleated RBC % (auto) 0.0 (0.0-0.2) /100WBC Sodium 139 (135-145) mmol/L Potassium 5.2 H (3.3-5.1) mmol/L Chloride 105 (96-108) mmol/L Carbon Dioxide 28 (22-29) mmol/L Anion Gap 11 L (12-20) BUN 22 H (9-16) mg/dL Creatinine 1.10 (0.5-1.4) mg/dL Estim Creat Clear Calc 82.1 Estimated GFR > 60 Random Glucose 114 (60-115) mg/dL Calcium 9.7 (8.4-10.2) mg/dL Troponin I High Sens < 3.5 (<3.5-35.0) ng/L 10/28/21 Range/Units 15:39 WBC (4.8-10.8) X10*3/uL RBC (4.60-5.80) X10*6/uL Hgb (14.0-18.0) g/dl Hct (42.0-52.0) % MCV (80.0-98.0) fL MCH (27.0-33.0) pg MCHC (31.0-36.0) g/dl RDW (11.0-16.0) % Plt Count (160-400) X10*3/uL MPV (9.4-12.4) fL Immature Gran % (Auto) (0.0-0.4) % Neut % (Auto) (45-73) % Lymph % (Auto) (20-40) % [place] % (Auto) (2-11) % Eos % (Auto) (0-4) % Baso % (Auto) (0-2) % Lymph # (Auto) (1.2-4.9) X10*3/uL [place] # (Auto) (0.1-1.2) X10*3/uL Eos # (Auto) (0.0-0.4) X10*3/uL Baso # (Auto) (0.0-0.2) X10*3/uL Abs Immat Gran (auto) (0.00-0.03) X10*3/uL Absolute Neuts (auto) (2.0-8.3) x10*3/uL Absolute Nucleated RBC (0.0-0.012) X10*3/uL Nucleated RBC % (auto) (0.0-0.2) /100WBC Sodium (135-145) mmol/L Potassium (3.3-5.1) mmol/L Chloride (96-108) mmol/L Carbon Dioxide (22-29) mmol/L Anion Gap (12-20) BUN (9-16) mg/dL Creatinine (0.5-1.4) mg/dL Estim Creat Clear Calc Estimated GFR Random Glucose (60-115) mg/dL Calcium (8.4-10.2) mg/dL Troponin I High Sens < 3.5 (<3.5-35.0) ng/L Scores Heart Score History: -2- highly suspicious ECG: -0- normal Age: -1- >45 - <65 Risk factory: -1- 1 or 2 risk factors Troponin: -0- < or = normal limit Score: 4 Risk: 16.6% Discharge Plan Discharge Clinical Impression: Chest pain Patient Disposition: Home, Self-Care Instructions: Chest Pain (DC) Additional Instructions: Please call to follow up with your doctor. If you have any other concerns please return to the ED. Prescriptions: No Action risperidone 1 mg tablet 1 mg PO BID Qty: 60 1RF fluoxetine 20 mg capsule 20 mg PO DAILY Qty: 30 1RF acetaminophen 500 mg tablet 500 mg PO Q6H PRN (Reason: pain) 30 Days Qty: 120 1RF dextromethorphan-guaifenesin [Adult Tussin Cough Congest DM] 10-100 mg/5 mL liquid 10 ml PO Q4H PRN (Reason: cough) Qty: 500 0RF miscellaneous medical supply Misc 1 ea miscellaneous DAILY Qty: 1 0RF Rx Instructions: Cane- with rubber handle - length of need 99+ Height 5'6 miscellaneous medical supply Misc 1 ea miscellaneous DAILY Qty: 1 0RF Rx Instructions: Back Belt Support - length of time 99+ Height 5 6 weight 207Lbs BMI 33.4 valacyclovir [Valtrex] 1 gram tablet 1,000 mg PO Q8H 7 Days Qty: 21 0RF omeprazole 20 mg capsule,delayed release(DR/EC) 20 mg PO BID Qty: 180 0RF clonazepam 1 mg tablet 1 mg PO DAILY PRN (Reason: anxiety) 30 Days Qty: 30 0RF albuterol sulfate 90 mcg/actuation HFA aerosol inhaler 2 puff inhalation Q6H PRN (Reason: shortness of breath or wheezing) Qty: 8.5 0RF valacyclovir [Valtrex] 1 gram tablet 1,000 mg PO DAILY Qty: 5 0RF prednisone 20 mg tablet 20 mg PO DAILY Qty: 5 0RF diphenhydramine HCl [Benadryl Allergy] 25 mg tablet 25 mg PO Q8H PRN (Reason: itching) Qty: 20 0RF
--- NOTE | 2021-10-28 15:13 | ECG_ITS ---
Test Reason : REPEAT Blood Pressure : / mmHG Vent. Rate : 075 BPM Atrial Rate : 075 BPM P-R Int : 124 ms QRS Dur : 072 ms QT Int : 352 ms P-R-T Axes : 037 052 044 degrees QTc Int : 393 ms Normal sinus rhythm ST elevation, consider early repolarization Borderline ECG When compared with ECG of 28-OCT-2021 08:10, No significant change was found Referred By: Madi Sewell Electronically Signed By:Cornelius Mejia
[2021-10-28 15:19] VITALS: BP 130/79; PULSE 77; RESP 14; TEMP 36.7; O2SAT 99
[2021-10-28 15:20] VITALS: PULSE 74
--- NOTE | 2021-10-28 15:21 | PC.NURSE ---
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 pt coming from [facility] for cocaine use. pt pending ED provider, tech in room w EKG.
[2021-10-28] MEDS: Famotidine 20 MG TABLET PO (15:31)
[2021-10-28] MEDS: Aspirin 81 MG TAB.CHEW 324 MG PO (15:31)
[2021-10-28] MEDS: Magnesium Hydrox/Alum Hydrox 30 ML ORAL.SUSP PO (15:31)
--- NOTE | 2021-10-28 15:33 | PC.NURSE ---
medicated per provider order.
[2021-10-28 16:13] LABS: Troponin-I High Sensitivity < 3.5 ng/L (<3.5-35.0)
[2021-10-28 16:17] VITALS: BP 127/67; PULSE 73; RESP 14; TEMP 36.6; O2SAT 97
== END 2021-10-28 16:56 | disposition home or self-care (01) ==
PROVIDERS: Emergency Provider Student in an Organized Health Care Education/Training Program; PCP Internal Medicine
DX: R07.89 Other chest pain (principal); M54.50 Low back pain, unspecified; Z71.6 Tobacco abuse counseling; F14.90 Cocaine use, unspecified, uncomplicated; F17.210 Nicotine dependence, cigarettes, uncomplicated; Z79.899 Other long term (current) drug therapy
CPT/HCPCS: 36415; 71046; 80048; 84484; 85025; 93005; 99283; 99285

== ENCOUNTER 2021-12-01 10:43 | Emergency (ER) | payer OTHER, SELFPAY ==
[2021-12-01 10:48] VITALS: BP 127/69; PULSE 70; RESP 18; TEMP 36.3; O2SAT 96; BMI 35.5
== END 2021-12-01 15:58 | disposition left against medical advice (07) ==
PROVIDERS: Emergency Provider Emergency Medicine; PCP Internal Medicine
DX: B00.9 Herpesviral infection, unspecified (principal)
CPT/HCPCS: 99281

== ENCOUNTER 2022-02-04 09:42 | Emergency (ER) | payer OTHER, SELFPAY ==
--- NOTE | ~2022-02-04 | XR_ITS ---
EXAMINATION: XR CHEST CLINICAL INFORMATION: Shortness of breath. COMPARISON: 10/28/2021 chest radiographs. TECHNIQUE: 2 views of the chest were obtained. FINDINGS: No significant abnormality is noted involving the heart, lungs, mediastinum, bony thorax or soft tissues. XR/XR chest 2V IMPRESSION: No acute cardiopulmonary process.
[2022-02-04 10:05] VITALS: BP 113/64; PULSE 78; RESP 16; TEMP 36.9; O2SAT 98; BMI 35.5
--- NOTE | 2022-02-04 10:28 | ED.ASTHMA ---
HPI - Asthma General Chief Complaint: Asthma Stated Complaint: Asthma, burn on roof of mouth Time Seen by Provider: 02/04/22 10:15 Source: patient Mode of arrival: ambulatory History of Present Illness HPI Narrative: 56 year old man with a PMHx of asthma, obesity, GERD, presents to the ED c/o SOB, chest tightness, productive cough with yellow-greenish sputum x3 days. He reports using his Albuterol inhaler last night with partial alleviation of symptoms, and then ran out. He denies any fever, nausea, and vomiting. Patient also reports burning his soft palate with a hot Swedish le 2 days ago. He reports testing MRSA positive in the past and is worried for an infection. Denies fever, chills, abdominal pain, recent travel, sick contacts, pedal edema MD complaint: asthma attack and shortness of breath Onset (ago): day(s) (3) Severity: moderate Associated symptoms: productive cough and chest pain Asthma History: history of frequent attacks Related Data Previous Rx's Medication Instructions Recorded risperidone 1 mg tablet 1 mg PO BID #60 tabs 04/22/21 fluoxetine 20 mg capsule 20 mg PO DAILY #30 caps 06/01/21 acetaminophen 500 mg tablet 500 mg PO Q6H PRN pain 30 days 06/16/21 #120 tabs dextromethorphan-guaifenesin 10 10 ml PO Q4H PRN cough #500 mL 06/16/21 mg-100 mg/5 mL oral liquid (Adult Tussin Cough Congestion DM) miscellaneous medical supply 1 ea miscellaneous DAILY #1 ea 07/09/21 miscellaneous medical supply 1 ea miscellaneous DAILY #1 ea 07/21/21 diphenhydramine HCl 25 mg tablet 25 mg PO Q8H PRN itching #20 tabs 10/05/21 (Benadryl Allergy) prednisone 20 mg tablet 20 mg PO DAILY #5 tabs 10/05/21 valacyclovir 1 gram tablet 1,000 mg PO DAILY #5 tabs 10/05/21 (Valtrex) albuterol sulfate 90 mcg/actuation 2 puff inhalation Q6H PRN 10/16/21 aerosol inhaler shortness of breath or wheezing #8.5 grams omeprazole 20 mg capsule,delayed 20 mg PO BID #180 caps 10/31/21 release clonazepam 1 mg tablet 1 mg PO DAILY PRN anxiety 30 days 11/10/21 #30 tabs valacyclovir 1 gram tablet 1,000 mg PO Q8H 7 days #21 tabs 12/22/21 (Valtrex) albuterol sulfate 90 mcg/actuation 2 puff inhalation Q4-6H PRN 02/04/22 aerosol inhaler shortness of breath or wheezing #6.7 grams prednisone 20 mg tablet 40 mg PO DAILY 5 days #10 tabs 02/04/22 Allergies Allergy/AdvReac Type Severity Reaction Status Date / Time codeine [CODEINE] Allergy Intermediate RASH, Verified 10/05/21 11:49 shortness of breath ibuprofen [IBUPROFEN] Allergy Intermediate RASH/HIVES, Verified 10/05/21 11:49 redness and itching latex Allergy Intermediate redness Verified 10/05/21 11:49 and itching Review of Systems Review of Systems: Constitutional: No Weight loss, No Fever, No Chills ENT/Mouth: No Ear Pain, No Nasal Congestion, No Sinus Pain, No Hoarseness, No sore throat, No Rhinorrhea, No Swallowing Difficulty Cardiovascular: + Chest tightness,+ SOB, No edema Respiratory: + Cough, + Sputum, No Wheezing Gastrointestinal: No Nausea, No Vomiting, No Diarrhea, No Constipation, No Abdominal pain Genitourinary: No Dysuria, No Urinary Frequency, No Hematuria, No Urinary Incontinence/retention, No Urgency, No Flank Pain Musculoskeletal: No joint pain, No Myalgias, No Joint Swelling Skin: No Skin Lesions, No rash Neuro: No Weakness, No Numbness, No Paresthesias Yes all other systems are reviewed and are negative Constitutional: Constitutional: Reports as per [facility] Past Medical History Attestation statement: The following information was validated with the patient. Medical History Anxiety Anxiety and depression Bipolar disorder Cataracts, bilateral Cervical disc disease Cervical pain Chronic low back pain Early satiety Elevation of adrenocorticotropic hormone (ACTH) Epigastric pain Erectile dysfunction Genital herpes GERD (gastroesophageal reflux disease) Knee pain, right Mixed hyperlipidemia Obesity (BMI 30-39.9) Overweight (BMI 25.0-29.9) Polyarthralgia Smoker Superficial gastritis without hemorrhage Weight loss, non-intentional Surgical History H/O eye surgery History of esophagogastroduodenoscopy (EGD) History of inguinal hernia repair Hx of colonoscopy Family History Family History Father Medical history unknown Mother Chronic mental illness Schizophrenia Diabetes Kidney problem Dialysis patient HTN (hypertension) Family/Other FH: mental illness Maternal Grandfather Prostate cancer Paternal Grandfather Lung cancer Social History Social History Household Members: Other Household Members Other:: Pt reports daughter(Sabrina) and his grandson Housing: Apartment Are you a primary chronic care nurse to a significant other at home: No Do you presently have visiting nurse or other home services: No Alcohol intake: never Patient Tobacco Use Status: Current everyday Tobacco user Tobacco use type: Cigarette Cigarettes Per Day: 4 Years Smoked: 40 Second Hand Smoke Exposure: No Substance Use Type: Crack/Cocaine Advance Directives: No service: No Current occupational status: disabled Sexual orientation: Straight/Heterosexual Physical Exam Vital Signs: Vital Signs: Last Vital Signs Temp 98.5 F 02/04/22 10:05 Pulse 65 02/04/22 11:18 Resp 18 02/04/22 11:18 BP 113/64 02/04/22 10:05 Pulse Ox 98 02/04/22 10:05 O2 Del Method 02/04/22 10:05 BMI result Body Mass Index 35.5 Const: General: cooperative, comfortable, no acute distress, alert, awake and Physically active Orientation/consciousness: patient oriented x3 Limitations: no limitations HEENT: Other: + small superficial burn noted to hard palate, no surrounding erythema no drainage Head: Yes normal to inspection Ears: hearing grossly normal bilaterally General nose exam: Normal external nose present Face and sinus: Yes normal facial exam Mouth: no drooling, no muffled voice and other Throat: Yes posterior oropharynx normal, Yes tonsils normal, Yes uvula midline, No peritonsillar mass, No uvula laterally displaced and No uvular edema Eyes: General: appearance normal, both eyes and all related structures Neck: Neck: Yes normal visual inspection, Yes no lymphadenopathy, Yes no meningeal signs and Yes supple Chest: Chest palpation & inspection: normal inspection of the chest Resp: Effort & Inspection: normal respiratory effort, able to speak in complete sentences, no audible wheezes, Actively coughing, not labored, respiratory distress, no stridor and not tachypneic Auscultation: clear to auscultation bilaterally, no crackles, no rales, no rhonchi and no wheezes Cardio: Rate: regular rate Rhythm: regular rhythm Heart sounds: S1 normal heart sound present and S2 normal heart sound present GI: Inspection: Yes normal to inspection Skin: Rashes: no rashes Wounds: no wounds Neuro: General: patient oriented x3, gait normal, tone normal and no meningeal signs Gait exam (Neuro): Normal gait present Extrem: General: Yes normal to inspection, Yes no pedal edema and Yes no calf tenderness Course Course Course Narrative: -1147--COVID and influenza negative. CXR unremarkable Results discussed with patient including worrisome signs and symptoms and strict return precautions, and when to return to the emergency department. They verbalized understanding and feel safe for discharge at this time. MDM - Asthma MDM Narrative Medical decision making narrative: 56 year old man with a PMHx of asthma, obesity, GERD, presents to the ED c/o SOB, chest tightness, productive cough with yellow-greenish sputum x3 days On examination VSS, lung CTA, no pedal edema, no calf tenderness. Small superficial burn noted in mouth, no active infection. Concern for asthma exacerbation vs viral infection vs PNA vs bronchitis. Lower suspicion for ACS, PE, CHF. No evidence of cellulitis or [employer] Plan: Chest Xray, EKG, Covid-19/ Flu swab, Duoneb, PO Prednisone Differential Diagnosis Differential diagnosis: Likely Acute exacerbation and Pneumonia; Unlikely PE Medical Records Attestation: I reviewed the patient's medical records. Lab Data Attestation: I reviewed the patient's lab results. Labs: Lab Results 02/04/22 02/04/22 Range/Units 10:54 10:54 COVID-19 ([facility]) Negative (Negative) COVID-19 Clin Com See Note Influenza Type A ([facility]) Negative (Negative) Influenza Type B ([facility]) Negative (Negative) Influenza A & B Note See Note ECG Data Attestation: I personally reviewed and interpreted this ECG as follows: ECG interpretation date: 02/04/22 ECG interpretation time: 10:48 Interpretation: EKG normal sinus rhythm at a rate of 68. Pr interval 114. QRS 84. No STEMI. Nonischemic Discharge Plan Discharge Clinical Impression: Asthma exacerbation Patient Disposition: Home, Self-Care Instructions: Asthma (ED) Additional Instructions: You tested negative for COVID-19 and the flu. Her chest x-ray is unremarkable Continue to use albuterol inhaler at home In addition start taking prednisone Please have close follow-up with her doctor If symptoms persist or worsen, constant worsening shortness of breath, chest pain, fever, or swelling in your legs return to the emergency department. Prescriptions: New prednisone 20 mg tablet 40 mg PO DAILY 5 Days Qty: 10 0RF albuterol sulfate 90 mcg/actuation HFA aerosol inhaler 2 puff inhalation Q4-6H PRN (Reason: shortness of breath or wheezing) Qty: 6.7 0RF No Action risperidone 1 mg tablet 1 mg PO BID Qty: 60 1RF fluoxetine 20 mg capsule 20 mg PO DAILY Qty: 30 1RF acetaminophen 500 mg tablet 500 mg PO Q6H PRN (Reason: pain) 30 Days Qty: 120 1RF dextromethorphan-guaifenesin [Adult Tussin Cough Congest DM] 10-100 mg/5 mL liquid 10 ml PO Q4H PRN (Reason: cough) Qty: 500 0RF miscellaneous medical supply Misc 1 ea miscellaneous DAILY Qty: 1 0RF Rx Instructions: Cane- with rubber handle - length of need 99+ Height 5'6 miscellaneous medical supply Misc 1 ea miscellaneous DAILY Qty: 1 0RF Rx Instructions: Back Belt Support - length of time 99+ Height 5 6 weight 207Lbs BMI 33.4 albuterol sulfate 90 mcg/actuation HFA aerosol inhaler 2 puff inhalation Q6H PRN (Reason: shortness of breath or wheezing) Qty: 8.5 0RF omeprazole 20 mg capsule,delayed release(DR/EC) 20 mg PO BID Qty: 180 0RF clonazepam 1 mg tablet 1 mg PO DAILY PRN (Reason: anxiety) 30 Days Qty: 30 0RF valacyclovir [Valtrex] 1 gram tablet 1,000 mg PO Q8H 7 Days Qty: 21 0RF valacyclovir [Valtrex] 1 gram tablet 1,000 mg PO DAILY Qty: 5 0RF prednisone 20 mg tablet 20 mg PO DAILY Qty: 5 0RF diphenhydramine HCl [Benadryl Allergy] 25 mg tablet 25 mg PO Q8H PRN (Reason: itching) Qty: 20 0RF Referrals: Philippe Lal MD [Primary Care Provider] - 2 days Stand Alone Forms: Work/School Release
--- NOTE | 2022-02-04 10:39 | ECG_ITS ---
Test Reason : cp Blood Pressure : / mmHG Vent. Rate : 068 BPM Atrial Rate : 068 BPM P-R Int : 114 ms QRS Dur : 084 ms QT Int : 386 ms P-R-T Axes : 030 054 057 degrees QTc Int : 410 ms Normal sinus rhythm Nonspecific ST abnormality Possible Early repolarization Borderline ECG When compared with ECG of 28-OCT-2021 15:28, No significant change was found Referred By: Carolyn Dickinson Electronically Signed By:MARY LUU MD
[2022-02-04] MEDS: Albuterol/Iprat 2.5/0.5MG 3 ML AMPUL.NEB INHALE (11:17)
[2022-02-04 11:18] VITALS: PULSE 65; RESP 18; O2SAT 98
[2022-02-04 11:27] LABS: COVID-19 Test Negative (Negative); IDNOW Serial# 16C4AD1C; Influenza A Negative (Negative); Influenza B2 Negative (Negative)
[2022-02-04] MEDS: predniSONE 20 MG TABLET 40 MG PO (11:41)
== END 2022-02-04 12:01 | disposition home or self-care (01) ==
PROVIDERS: Physician Assistant; Emergency Provider Emergency Medicine; PCP Internal Medicine
DX: J45.901 Unspecified asthma with (acute) exacerbation (principal); R07.89 Other chest pain; R06.02 Shortness of breath; Z20.822 Contact with and (suspected) exposure to COVID-19; F17.210 Nicotine dependence, cigarettes, uncomplicated; Z79.899 Other long term (current) drug therapy; Z71.6 Tobacco abuse counseling
CPT/HCPCS: 71046; 87502; 87635; 93005; 94640; 94664; 99284

== ENCOUNTER 2022-04-07 21:29 | Emergency (ER) | payer OTHER, SELFPAY ==
--- NOTE | ~2022-04-07 | CT_ITS ---
EXAMINATION: CT ABDOMEN AND PELVIS WITHOUT CONTRAST CLINICAL INFORMATION: Cellulitis to peroneal region. Necrotizing fasciitis. COMPARISON: 11/21/2018 TECHNIQUE: Multidetector volumetric imaging was performed from the superior aspect of the liver through the pubic symphysis. Sagittal and coronal reformatted images were obtained on the technologist's workstation. This CT examination was performed using dose optimization techniques as appropriate, variously including the following: *Automated exposure control *Adjustment of mA and/or kV according to patient size (this includes techniques or standardized protocols for targeted exams where dose is matched to indication/reason for exam; i.e. extremities or head) *Use of iterative reconstruction technique DLP: 887 mGy-cm FINDINGS: LUNG BASES: Stable 4 mm nodule in the right lower lobe. No follow-up required per Fleischner Society guidelines. LIVER, GALLBLADDER, AND BILIARY TREE: The liver is normal in size, shape, and attenuation. No focal hepatic lesion or biliary ductal dilatation is present. Gallbladder unremarkable. PANCREAS: Unremarkable. SPLEEN: Unremarkable. ADRENAL GLANDS: Unremarkable. KIDNEYS AND URETERS: The kidneys are normal in size, shape, and attenuation. No hydronephrosis, hydroureter, or calculi seen. No perinephric stranding. BLADDER: Unremarkable. GASTROINTESTINAL TRACT: The small and large bowel are unremarkable. The appendix is unremarkable. ABDOMINAL WALL: No significant hernia is appreciated. LYMPH NODES: Normal. VASCULAR: Unremarkable. PELVIC VISCERA: Prostate and seminal vesicles unremarkable. Soft tissues of the perineum are unremarkable. OSSEOUS STRUCTURES: Unremarkable. CT/CT abdomen pelvis wo IV con IMPRESSION: No evidence of peritoneal cellulitis or abscess. No soft tissue gas to suggest necrotizing fasciitis.
--- NOTE | ~2022-04-07 | XR_ITS ---
EXAMINATION: XR KNEE, LEFT CLINICAL INFORMATION: Fall COMPARISON: None TECHNIQUE: Four views of the left knee. FINDINGS: Bones and soft tissues are normal. No fracture or joint effusion. Alignment is anatomic. Joint spaces are well maintained. No abnormal soft tissue calcification. XR/XR knee LT 2V IMPRESSION: Normal left knee.
[2022-04-07 21:36] VITALS: BP 133/75; PULSE 82; RESP 18; TEMP 36.6; O2SAT 98; BMI 36.6
[2022-04-07 22:34] LABS: MANUAL DIFF FLAG NO
[2022-04-07 22:35] LABS: Basophils Percent Auto 0.4 % (0-2); Eosinophils Absolute Auto 0.5 X10*3/uL (0.0-0.4); Eosinophils Percent Auto 4.8 % (0-4); Hematocrit 46.7 % (42.0-52.0); Hemoglobin 15.7 g/dl (14.0-18.0); Imm Gran Abs Auto 0.04 X10*3/uL (0.00-0.03); Imm Gran Pct Auto 0.4 % (0.0-0.4); Lymphocytes Absolute Auto 1.3 X10*3/uL (1.2-4.9); Lymphocytes Percent Auto 13.1 % (20-40); Mean Corpuscular HGB Conc 33.6 g/dl (31.0-36.0); Mean Corpuscular Hemoglobin 31.1 pg (27.0-33.0); Mean Corpuscular Volume 92.5 fL (80.0-98.0); Monocytes Absolute Auto 1.1 X10*3/uL (0.1-1.2); Neutrophils Absolute Auto 6.8 x10*3/uL (2.0-8.3); Neutrophils Percent Auto 70.3 % (45-73); Platelet Count 286 X10*3/uL (160-400); Red Blood Count 5.05 X10*6/uL (4.60-5.80); Red Cell Distribution Width 13.2 % (11.0-16.0); White Blood Count 9.7 X10*3/uL (4.8-10.8)
[2022-04-07 23:01] LABS: Alanine Aminotransferase 57 U/L (0-40); Alkaline Phosphatase 71 U/L (39-117); Anion Gap 12 (12-20); Aspartate Amino Transferase 59 U/L (5-37); Bilirubin Direct 0.4 mg/dL (0.0-0.5); Bilirubin Total 0.8 mg/dL (0.0-1.0); Blood Urea Nitrogen 13 mg/dL (9-16); Calcium 9.2 mg/dL (8.4-10.2); Carbon Dioxide 28 mmol/L (22-29); Chloride 102 mmol/L (96-108); Creatinine Clr Calc Pharmacy 104.3; Estimated Glomerular Filt Rate > 60; Glucose Random 124 mg/dL (60-115); Lipase 10 U/L (8-78); Potassium 3.3 mmol/L (3.3-5.1); Sodium 139 mmol/L (135-145); Total Protein 6.8 g/dL (6.5-8.0)
[2022-04-07 23:43] VITALS: BP 119/57; PULSE 76; RESP 20; TEMP 36.7; O2SAT 94
--- NOTE | 2022-04-07 23:49 | PC.NURSE ---
Pt's V/S are stable, Pt is a/ox4, pt reports smoking cigarettes that potentially could have crack. Pt reports he has pain 10/10 on the groin / perineal area. Pt's clothes are soil, pt reports loosing his nephew and he states, he left the house to walk and fall walking since then he has trouble walking.
--- NOTE | 2022-04-08 00:22 | ED_ITS ---
HPI - General Adult General Chief complaint: General Medical Stated complaint: Fall Time Seen by Provider: 04/08/22 00:09 Source: patient Mode of arrival: ambulatory Limitations: no limitations History of Present Illness HPI narrative: 56-year-old male walked to the emergency department with complain of feeling gen eralized weakness, lethargic, malaise, developing rash in the lower abdomen and perineal area that is very itchy, nonbloody watery diarrhea. Patient recently lost his nephew admitted to sniffing cocaine today. Patient stated that he feels like it he is fully unable to focus or think straight. Patient also reported that he fell today hurting his left knee but no head injury or LOC. Related Data Previous Rx's Medication Instructions Recorded risperidone 1 mg tablet 1 mg PO BID #60 tabs 04/22/21 fluoxetine 20 mg capsule 20 mg PO DAILY #30 caps 06/01/21 acetaminophen 500 mg tablet 500 mg PO Q6H PRN pain 30 days 06/16/21 #120 tabs dextromethorphan-guaifenesin 10 10 ml PO Q4H PRN cough #500 mL 06/16/21 mg-100 mg/5 mL oral liquid (Adult Tussin Cough Congestion DM) miscellaneous medical supply 1 ea miscellaneous DAILY #1 ea 07/09/21 miscellaneous medical supply 1 ea miscellaneous DAILY #1 ea 07/21/21 diphenhydramine HCl 25 mg tablet 25 mg PO Q8H PRN itching #20 tabs 10/05/21 (Benadryl Allergy) prednisone 20 mg tablet 20 mg PO DAILY #5 tabs 10/05/21 valacyclovir 1 gram tablet 1,000 mg PO DAILY #5 tabs 10/05/21 (Valtrex) albuterol sulfate 90 mcg/actuation 2 puff inhalation Q6H PRN 10/16/21 aerosol inhaler shortness of breath or wheezing #8.5 grams clonazepam 1 mg tablet 1 mg PO DAILY PRN anxiety 30 days 11/10/21 #30 tabs valacyclovir 1 gram tablet 1,000 mg PO Q8H 7 days #21 tabs 12/22/21 (Valtrex) albuterol sulfate 90 mcg/actuation 2 puff inhalation Q4-6H PRN 02/04/22 aerosol inhaler shortness of breath or wheezing #6.7 grams prednisone 20 mg tablet 40 mg PO DAILY 5 days #10 tabs 02/04/22 omeprazole 20 mg capsule,delayed 20 mg PO BID #180 caps 02/23/22 release doxycycline hyclate 100 mg tablet 100 mg PO BID #20 tabs 04/08/22 nystatin 100,000 unit/gram topical 1 appl topical BID #60 grams 04/08/22 powder ([facility]) Allergies Allergy/AdvReac Type Severity Reaction Status Date / Time codeine [CODEINE] Allergy Intermediate RASH, Verified 10/05/21 11:49 shortness of breath ibuprofen [IBUPROFEN] Allergy Intermediate RASH/HIVES, Verified 10/05/21 11:49 redness and itching latex Allergy Intermediate redness Verified 10/05/21 11:49 and itching Review of Systems Review of Systems: All other systems are reviewed and are negative Constitutional: Reports as per HPI and Reports no additional constitutional complaints Eyes: Reports as per HPI and Reports no additional eye complaints Reports system reviewed and no additional complaints, except as documented Cardiovascular: Reports as per HPI and Reports no additional cardiovascular complaints Respiratory: Reports as per HPI and Reports no additional respiratory complaints Gastrointestinal: Reports as per HPI and Reports no additional gastrointestinal complaints Genitourinary: Reports no additional female genitourinary complaints Musculoskeletal: Reports no additional musculoskeletal complaints Skin/Breast: Reports system reviewed and no additional complaints, except as docu Psychiatric: Reports no additional psychiatric complaints Endocrine: Reports no additional endocrine complaints Hematologic/Lymphatic: Reports no additional hematologic/lymphatic complaints Allergic/Immunologic: Reports no additional allergic/immunologic complaints Reports system reviewed and no additional complaints, except as documented and Reports Abnormal speech present [facility] Past Medical History Medical History Anxiety Anxiety and depression Bipolar disorder Cataracts, bilateral Cervical disc disease Cervical pain Chronic low back pain Early satiety Elevation of adrenocorticotropic hormone (ACTH) Epigastric pain Erectile dysfunction Genital herpes GERD (gastroesophageal reflux disease) Knee pain, right Mixed hyperlipidemia Obesity (BMI 30-39.9) Overweight (BMI 25.0-29.9) Polyarthralgia Smoker Superficial gastritis without hemorrhage Weight loss, non-intentional Surgical History H/O eye surgery History of esophagogastroduodenoscopy (EGD) History of inguinal hernia repair Hx of colonoscopy Family History Family History Father Medical history unknown Mother Chronic mental illness Schizophrenia Diabetes Kidney problem Dialysis patient HTN (hypertension) Family/Other FH: mental illness Maternal Grandfather Prostate cancer Paternal Grandfather Lung cancer Social History Social History Household Members: Other Household Members Other:: Pt reports daughter(Sabrina) and his grandson Housing: Apartment Are you a primary patient care coordinator to a significant other at home: No Do you presently have visiting nurse or other home services: No Alcohol intake: never Patient Tobacco Use Status: Current everyday Tobacco user Tobacco use type: Cigarette Cigarettes Per Day: 4 Years Smoked: 40 Smoked in Last 30 Days: Yes Second Hand Smoke Exposure: No Use of substances other than those prescribed or required for medical reasons: Yes Substance Use Type: Crack/Cocaine Advance Directives: No Advance Directives Information Provided: Yes service: No Current occupational status: disabled Sexual orientation: Straight/Heterosexual Physical Exam ED Vital Signs: Vital Signs - 24 hr 04/07/22 21:36 04/07/22 23:43 04/08/22 01:21 Temperature 98 F 98.0 F 98.6 F Pulse Rate 82 76 83 Respiratory Rate 18 20 20 Blood Pressure 133/75 119/57 L 142/70 H Pulse Oximetry 98 94 94 Oxygen Delivery Method Room Air Room Air Room Air BMI result Body Mass Index 36.6 Vital signs have been reviewed as appeared to be correct. Blood pressure normal. Heart rate normal. Respiration rate normal. Temperature normal. Oxygen saturation normal. Appearance: Alert. Oriented X3. No acute distress. Head: Normal external exam. Normocephalic. Atraumatic. No Robins signs noted. No raccoon eyes noted Eyes: PERRLA. EOMI. Conjunctiva and sclera normal. Eyelids normal. ENT: TM's Normal. Pharynx normal. Uvula midline. Moist mucous membranes. No trismus noted. No drooling noted. No muffled voice noted. Neck: Normal inspection. Neck supple. FROM. No adenopathy. Thyroid Normal. No meningeal signs. No neck mass noted. CVS: Normal heart rate and rhythm. Heart sound normal. No murmurs noted. Pulses normal throughout. Respiratory: No respiratory distress. Painless inspiration. Breath sounds normal. No wheezes/rales/rhonchi noted. Chest nontender. No accessory muscle usage noted or decreased air movement noted. Abdomen: Soft and nontender. Bowel sounds normal in all 4 quadrants. No distention noted. No organomegaly noted. No visible injury noted. Suprapubic redness and hotness extent to inner thighs bilaterally. Back: No CVA tenderness. Full range of motion noted. Skin: Skin warm and dry. Normal skin color. Normal skin turgor. No rashes/lesions/lacerations noted. Extremities: No lower extremity edema. Extremities exhibit normal range of motion. Extremities nontender. Neuro: Oriented X 3. Cranial nerve exam: II-XII are grossly intact No motor deficit. No sensory deficit. Reflexes normal. Course Course Course Narrative: 56-year-old male came in for evaluation after falling with left knee contusion, admitted to cocaine abuse, patient is also grieving for his nephew loss, no SI or HI. Abdominal wall cellulitis which appear fungal with superimposed bacterial infection will start the patient on doxycycline and nystatin. Medications Administered Discontinued Medications Generic Name Dose Route Start Last Admin Trade Name Freq PRN Reason Stop Dose Admin Sodium Chloride 1,000 mls @ 999 mls/hr 04/08/22 00:24 04/08/22 01:14 Ns IV 04/08/22 01:24 999 mls/hr .Q1H1M ONE Administration Medical Decision Making Differential Diagnosis Differential Diagnoses: The differential diagnosis associated with the presentation includes (Grieving/mechanical fall/left knee injury/abdominal wall cellulitis/fungal infection in the abdominal wall.) Lab Data MDM Lab Attestation statement: I reviewed the patient's lab results. Result Diagrams: 04/07/22 22:21 04/07/22 22:21 Labs: Lab Results 04/07/22 04/07/22 04/08/22 Range/Units 22:21 22:21 01:15 WBC 9.7 (4.8-10.8) X10*3/uL RBC 5.05 (4.60-5.80) X10*6/uL Hgb 15.7 (14.0-18.0) g/dl Hct 46.7 (42.0-52.0) % MCV 92.5 (80.0-98.0) fL MCH 31.1 (27.0-33.0) pg MCHC 33.6 (31.0-36.0) g/dl RDW 13.2 (11.0-16.0) % Plt Count 286 (160-400) X10*3/uL MPV 9.0 L (9.4-12.4) fL Immature Gran % (Auto) 0.4 (0.0-0.4) % Neut % (Auto) 70.3 (45-73) % Lymph % (Auto) 13.1 L (20-40) % [place] % (Auto) 11.0 (2-11) % Eos % (Auto) 4.8 H (0-4) % Baso % (Auto) 0.4 (0-2) % Lymph # (Auto) 1.3 (1.2-4.9) X10*3/uL [place] # (Auto) 1.1 (0.1-1.2) X10*3/uL Eos # (Auto) 0.5 H (0.0-0.4) X10*3/uL Baso # (Auto) 0.0 (0.0-0.2) X10*3/uL Abs Immat Gran (auto) 0.04 H (0.00-0.03) X10*3/uL Absolute Neuts (auto) 6.8 (2.0-8.3) x10*3/uL Absolute Nucleated RBC 0.000 (0.0-0.012) X10*3/uL Nucleated RBC % (auto) 0.0 (0.0-0.2) /100WBC Sodium 139 (135-145) mmol/L Potassium 3.3 D (3.3-5.1) mmol/L Chloride 102 (96-108) mmol/L Carbon Dioxide 28 (22-29) mmol/L Anion Gap 12 (12-20) BUN 13 (9-16) mg/dL Creatinine 0.91 (0.5-1.4) mg/dL Estim Creat Clear Calc 104.3 Estimated GFR > 60 Random Glucose 124 H (60-115) mg/dL Lactic Acid 1.1 (0.5-2.0) mmol/L Calcium 9.2 (8.4-10.2) mg/dL Total Bilirubin 0.8 (0.0-1.0) mg/dL Direct Bilirubin 0.4 (0.0-0.5) mg/dL AST 59 H (5-37) U/L ALT 57 H (0-40) U/L Alkaline Phosphatase 71 (39-117) U/L Total Protein 6.8 (6.5-8.0) g/dL Albumin 4.0 (3.5-5.0) g/dL Lipase 10 (8-78) U/L Independent Interpretation I performed an independent interpretation of an: Plain X-Ray (Left knee: No acute pathology.) and CT Scan (Abdomen and pelvis: No acute pathology no evidence of necrotizing fasciitis) Radiology Impression Discussion of test interpretation with radiology: I have reviewed the radiologist's reading. Discharge Plan Discharge Clinical Impression: Grief reaction, Contusion of left knee, Abdominal wall cellulitis Patient Disposition: Home, Self-Care Instructions: Cellulitis (ED) Prescriptions: New nystatin [Nyamyc] 100,000 unit/gram powder 1 appl topical BID Qty: 60 0RF Rx Instructions: Apply to the affected area in your abdomen twice a day for 10 days doxycycline hyclate 100 mg tablet 100 mg PO BID Qty: 20 0RF No Action risperidone 1 mg tablet 1 mg PO BID Qty: 60 1RF fluoxetine 20 mg capsule 20 mg PO DAILY Qty: 30 1RF acetaminophen 500 mg tablet 500 mg PO Q6H PRN (Reason: pain) 30 Days Qty: 120 1RF dextromethorphan-guaifenesin [Adult Tussin Cough Congest DM] 10-100 mg/5 mL l iquid 10 ml PO Q4H PRN (Reason: cough) Qty: 500 0RF miscellaneous medical supply Misc 1 ea miscellaneous DAILY Qty: 1 0RF Rx Instructions: Cane- with rubber handle - length of need 99+ Height 5'6 miscellaneous medical supply Misc 1 ea miscellaneous DAILY Qty: 1 0RF Rx Instructions: Back Belt Support - length of time 99+ Height 5 6 weight 207Lbs BMI 33.4 albuterol sulfate 90 mcg/actuation HFA aerosol inhaler 2 puff inhalation Q6H PRN (Reason: shortness of breath or wheezing) Qty: 8.5 0RF clonazepam 1 mg tablet 1 mg PO DAILY PRN (Reason: anxiety) 30 Days Qty: 30 0RF valacyclovir [Valtrex] 1 gram tablet 1,000 mg PO Q8H 7 Days Qty: 21 0RF omeprazole 20 mg capsule,delayed release(DR/EC) 20 mg PO BID Qty: 180 0RF valacyclovir [Valtrex] 1 gram tablet 1,000 mg PO DAILY Qty: 5 0RF prednisone 20 mg tablet 20 mg PO DAILY Qty: 5 0RF diphenhydramine HCl [Benadryl Allergy] 25 mg tablet 25 mg PO Q8H PRN (Reason: itching) Qty: 20 0RF prednisone 20 mg tablet 40 mg PO DAILY 5 Days Qty: 10 0RF albuterol sulfate 90 mcg/actuation HFA aerosol inhaler 2 puff inhalation Q4-6H PRN (Reason: shortness of breath or wheezing) Qty: 6.7 0RF Referrals: Philippe Lal MD [Primary Care Provider] -
[2022-04-08] MEDS: 0.9 % Sodium Chloride 1,000 ML 999 ML IV (01:14)
[2022-04-08 01:21] VITALS: BP 142/70; PULSE 83; RESP 20; TEMP 37; O2SAT 94
--- NOTE | 2022-04-08 01:24 | PC.NURSE ---
Pt's V/S are stable, pt has IVF running, PT labs were collected and sent down. pt is sleeping during the re-assessment, it was hard for him to stay alert.
[2022-04-08 01:44] LABS: Lactic Acid 1.1 mmol/L (0.5-2.0)
[2022-04-08 05:24] VITALS: BP 107/58; PULSE 72; RESP 18; TEMP 36.8; O2SAT 94
--- NOTE | 2022-04-08 05:32 | PC.NURSE ---
Rounds: Pt's V/S are stable. Pt IVF has been completed, pt seems somnolence at the time of the re-assessment. Pt has BP running every 1hr, o2 is on d/t pt reports, I think my cigarette had crack . provider has been notified.
== END 2022-04-08 06:59 | disposition home or self-care (01) ==
PROVIDERS: Emergency Provider Emergency Medicine; PCP Internal Medicine
DX: L03.311 Cellulitis of abdominal wall (principal); M25.562 Pain in left knee; F43.20 Adjustment disorder, unspecified; F17.210 Nicotine dependence, cigarettes, uncomplicated; Z71.6 Tobacco abuse counseling; Z79.899 Other long term (current) drug therapy
CPT/HCPCS: 36415; 73560; 74176; 80048; 80076; 83605; 83690; 85025; 96360; 99284

== ENCOUNTER 2022-04-16 14:03 | Inpatient (IN) | payer OTHER, SELFPAY ==
--- NOTE | 2022-04-16 | ECG_ITS ---
Test Reason : MED CLEARANCE Blood Pressure : / mmHG Vent. Rate : 074 BPM Atrial Rate : 074 BPM P-R Int : 110 ms QRS Dur : 086 ms QT Int : 370 ms P-R-T Axes : 038 064 060 degrees QTc Int : 410 ms Sinus rhythm with short NH Otherwise normal ECG When compared with ECG of 04-FEB-2022 10:48, No significant change was found Referred By: Brittany Kelly Electronically Signed By:GEO DURBIN
[2022-04-16 14:20] VITALS: BP 135/78; PULSE 80; RESP 18; TEMP 36.6; O2SAT 97; BMI 36.6
--- NOTE | 2022-04-16 15:11 | ED.GENADULT ---
HPI - General Adult General Chief complaint: Psychiatric Symptoms Stated complaint: crisis Time Seen by Provider: 04/16/22 15:10 Source: patient Mode of arrival: ambulatory Limitations: no limitations History of Present Illness HPI narrative: Patient is a 56 year old assigned male at with a history of MDD presenting to the emergency department today with SI. Patient states that he has a plan to jump off of a bridge or poision himself. Patient denies any dizziness, lightheadedness, abdominal pain, nausea, vomiting, fever, chills, blurry vision, double vision, loss of vision, chest pain, difficulty breathing, shortness of breath, back pain, night sweats, pain with urination, increased urinary frequency, increased urinary urgency, blood in his urine or stool, syncope or a near syncopal episode, recent trauma or falls, bowel incontinence, bladder incontinence, bowel retention, bladder retention, or any other complaints at this time. Onset (ago): day(s) Severity: moderate Severity scale (1-10): 4 Relieving factors: none Exacerbating factors: none Associated symptoms: denies other symptoms Treatments prior to arrival: none Related Data Previous Rx's Medication Instructions Recorded risperidone 1 mg tablet 1 mg PO BID #60 tabs 04/22/21 fluoxetine 20 mg capsule 20 mg PO DAILY #30 caps 06/01/21 acetaminophen 500 mg tablet 500 mg PO Q6H PRN pain 30 days 06/16/21 #120 tabs dextromethorphan-guaifenesin 10 10 ml PO Q4H PRN cough #500 mL 06/16/21 mg-100 mg/5 mL oral liquid (Adult Tussin Cough Congestion DM) miscellaneous medical supply 1 ea miscellaneous DAILY #1 ea 07/09/21 miscellaneous medical supply 1 ea miscellaneous DAILY #1 ea 07/21/21 diphenhydramine HCl 25 mg tablet 25 mg PO Q8H PRN itching #20 tabs 10/05/21 (Benadryl Allergy) prednisone 20 mg tablet 20 mg PO DAILY #5 tabs 10/05/21 valacyclovir 1 gram tablet 1,000 mg PO DAILY #5 tabs 10/05/21 (Valtrex) albuterol sulfate 90 mcg/actuation 2 puff inhalation Q6H PRN 10/16/21 aerosol inhaler shortness of breath or wheezing #8.5 grams clonazepam 1 mg tablet 1 mg PO DAILY PRN anxiety 30 days 11/10/21 #30 tabs valacyclovir 1 gram tablet 1,000 mg PO Q8H 7 days #21 tabs 12/22/21 (Valtrex) albuterol sulfate 90 mcg/actuation 2 puff inhalation Q4-6H PRN 02/04/22 aerosol inhaler shortness of breath or wheezing #6.7 grams prednisone 20 mg tablet 40 mg PO DAILY 5 days #10 tabs 02/04/22 omeprazole 20 mg capsule,delayed 20 mg PO BID #180 caps 02/23/22 release doxycycline hyclate 100 mg tablet 100 mg PO BID #20 tabs 04/08/22 nystatin 100,000 unit/gram topical 1 appl topical BID #60 grams 04/08/22 powder ([facility]) Allergies Allergy/AdvReac Type Severity Reaction Status Date / Time codeine [CODEINE] Allergy Intermediate RASH, Verified 10/05/21 11:49 shortness of breath ibuprofen [IBUPROFEN] Allergy Intermediate RASH/HIVES, Verified 10/05/21 11:49 redness and itching latex Allergy Intermediate redness Verified 10/05/21 11:49 and itching Review of Systems Constitutional: Constitutional: Reports no additional constitutional complaints, Denies chills, Denies fever(s) and Denies night sweats Eyes: Eyes: Reports no additional eye complaints, Denies blurry vision, Denies change in vision, Denies diplopia, Denies eye discharge, Denies loss of vision and Denies eye pain ENT: Denies dizziness Cardiovascular: Cardiovascular: Reports no additional cardiovascular complaints, Denies chest pain, Denies lightheadedness, Denies Loss of Consciousness and Denies dyspnea Respiratory: Respiratory: Reports no additional respiratory complaints and Denies dyspnea Gastrointestinal: Gastrointestinal: Reports no additional gastrointestinal complaints, Denies abdominal pain, Denies melena, Denies hematochezia, Denies change in bowel habits and Denies change in stool character Genitourinary: Genitourinary: Reports no additional male genitourinary complaints, Denies hematuria, Denies oliguria, Denies difficulty urinating, Denies dysuria, Denies urinary frequency, Denies urinary hesitancy, Denies urinary incontinence and Denies urinary urgency Musculoskeletal: Musculoskeletal: Reports no additional musculoskeletal complaints, Denies numbness and Denies tingling Neurologic: Denies dizziness, Denies loss of vision, Denies numbness and Denies tingling Psychiatric: Psychiatric: Reports no additional psychiatric complaints and Reports suicidal ideation Endocrine: Endocrine: Reports no additional endocrine complaints Hematologic/Lymphatic: Hematologic/Lymphatic: Reports no additional hematologic/lymphatic complaints Allergic/Immunologic: Allergic/Immunologic: Reports no additional allergic/immunologic complaints [facility] Past Medical History Attestation statement: The following information was validated with the patient. Source: old records reviewed and nursing notes reviewed Medical History Anxiety Anxiety and depression Bipolar disorder Cataracts, bilateral Cervical disc disease Cervical pain Chronic low back pain Early satiety Elevation of adrenocorticotropic hormone (ACTH) Epigastric pain Erectile dysfunction Genital herpes GERD (gastroesophageal reflux disease) Knee pain, right Mixed hyperlipidemia Obesity (BMI 30-39.9) Overweight (BMI 25.0-29.9) Polyarthralgia Smoker Superficial gastritis without hemorrhage Weight loss, non-intentional Surgical History H/O eye surgery History of esophagogastroduodenoscopy (EGD) History of inguinal hernia repair Hx of colonoscopy Family History Family History Father Medical history unknown Mother Chronic mental illness Schizophrenia Diabetes Kidney problem Dialysis patient HTN (hypertension) Family/Other FH: mental illness Maternal Grandfather Prostate cancer Paternal Grandfather Lung cancer Social History Social History Household Members: Other Household Members Other:: Pt reports daughter(Sabrina) and his grandson Housing: Apartment Are you a primary hospice spiritual care coordinator to a significant other at home: No Do you presently have visiting nurse or other home services: No Alcohol intake: never Patient Tobacco Use Status: Current everyday Tobacco user Tobacco use type: Cigarette Cigarettes Per Day: 4 Years Smoked: 40 Second Hand Smoke Exposure: No Substance Use Type: Crack/Cocaine Advance Directives: No Advance Directives Information Provided: No service: No Current occupational status: disabled Sexual orientation: Straight/Heterosexual Physical Exam ED Vital Signs: Vital Signs - 24 hr 04/16/22 14:20 Temperature 97.9 F Pulse Rate 80 Respiratory Rate 18 Blood Pressure 135/78 Pulse Oximetry 97 Oxygen Delivery Method Room Air BMI result Body Mass Index 36.6 Const General: cooperative, no acute distress, alert and awake Nutritional Appearance: well nourished Orientation/consciousness: patient oriented x3 Limitations: no limitations HENMT Head: Yes normal to inspection and Yes atraumatic Ears: hearing grossly normal bilaterally and external ears normal General nose exam: Normal external nose present, no nasal discharge noted and no epistaxis Face and sinus: Yes normal facial exam, No abrasion and No laceration Mouth: Normal oral and palatal mucosa present, no drooling and no muffled voice Eyes General: appearance normal, both eyes and all related structures Periorbital: periorbital findings normal Eyelids: Yes eyelids normal Conjunctivae: conjunctivae normal Pupils: Equal, round and reactive pupils present EOM: EOMs intact bilaterally Neck Neck: Yes normal visual inspection, Yes full ROM and Yes no lymphadenopathy Chest Chest palpation & inspection: normal inspection of the chest Resp Effort & Inspection: normal respiratory effort and able to speak in complete sentences Auscultation: clear to auscultation bilaterally Cardio Rate: regular rate Rhythm: regular rhythm GI Inspection: Yes normal to inspection Palpation (GI): Soft to palpation, not firm, nontender, no guarding and not rigid Neuro General: patient oriented x3 and moves all extremities Cranial nerves: Yes Equal, round and reactive pupils present Cognition (Neuro): normal cognition Motor exam (neuro): 5/5 motor strength present throughout Sensory Exam: Normal double simultaneous stimulation for sensation Coordination: [id number] test normal Extrem General: Yes normal to inspection, Yes full ROM and Yes capillary refill normal Psych Appearance: grossly normal Mental Status: mental status grossly normal Affect: normal affect Attitude: cooperative Thought process: Normal thought process present Thought content: Normal thought content present Insight: Good insight present (Psych) Medical Decision Making Medical Decision Making [facility] Narrative: Patient is a 56 year old assigned male at with a history of MDD presenting to the emergency department today with SI. Patient's physical exam was unremarkable. Patient's blood work was unremarkable. I explained my physical exam findings as well as all test results to the patient. I answered all questions asked by the patient. Patient is currently awaiting crisis eval. Differential Diagnosis Differential Diagnoses: The differential diagnosis associated with the presentation includes SI, depression, depressive episode Lab Data [facility] Lab Attestation statement: I reviewed the patient's lab results. 04/16/22 15:32 04/16/22 15:32 Labs: Lab Results 04/16/22 04/16/22 04/16/22 Range/Units 15:21 15:21 15:32 WBC 7.2 (4.8-10.8) X10*3/uL RBC 5.36 (4.60-5.80) X10*6/uL Hgb 16.5 (14.0-18.0) g/dl Hct 50.4 (42.0-52.0) % MCV 94.0 (80.0-98.0) fL MCH 30.8 (27.0-33.0) pg MCHC 32.7 (31.0-36.0) g/dl RDW 13.3 (11.0-16.0) % Plt Count 377 D (160-400) X10*3/uL MPV 9.1 L (9.4-12.4) fL Immature Gran % (Auto) 0.6 H (0.0-0.4) % Neut % (Auto) 55.5 (45-73) % Lymph % (Auto) 28.4 (20-40) % Stevens % (Auto) 11.4 H (2-11) % Eos % (Auto) 3.3 (0-4) % Baso % (Auto) 0.8 (0-2) % Lymph # (Auto) 2.1 (1.2-4.9) X10*3/uL Stevens # (Auto) 0.8 (0.1-1.2) X10*3/uL Eos # (Auto) 0.2 (0.0-0.4) X10*3/uL Baso # (Auto) 0.1 (0.0-0.2) X10*3/uL Abs Immat Gran (auto) 0.04 H (0.00-0.03) X10*3/uL Absolute Neuts (auto) 4.0 (2.0-8.3) x10*3/uL Absolute Nucleated RBC 0.000 (0.0-0.012) X10*3/uL Nucleated RBC % (auto) 0.0 (0.0-0.2) /100WBC Sodium (135-145) mmol/L Potassium (3.3-5.1) mmol/L Chloride (96-108) mmol/L Carbon Dioxide (22-29) mmol/L Anion Gap (12-20) BUN (9-16) mg/dL Creatinine (0.5-1.4) mg/dL Estim Creat Clear Calc Estimated GFR Random Glucose (60-115) mg/dL Calcium (8.4-10.2) mg/dL Total Bilirubin (0.0-1.0) mg/dL AST (5-37) U/L ALT (0-40) U/L Alkaline Phosphatase (39-117) U/L Total Protein (6.5-8.0) g/dL Albumin (3.5-5.0) g/dL Urine Opiates Screen Not Detected (Not Detect) Urine Fentanyl Screen Not Detected (Not Detect) Ur Barbiturates Screen Not Detected (Not Detect) Ur Phencyclidine Scrn Not Detected (Not Detect) Ur Amphetamines Screen Not Detected (Not Detect) U Benzodiazepines Scrn Not Detected (Not Detect) Urine Cocaine Screen POSITIVE H (Not Detect) U Marijuana (THC) Screen Not Detected (Not Detect) Ethyl Alcohol mg/dL Influenza Type A (PCR) NEGATIVE (Negative) Influenza Type B (PCR) NEGATIVE (Negative) RSV RNA Qual (PCR) NEGATIVE (Negative) SARS-CoV-2 RNA (RT-PCR) NEGATIVE (Negative) 04/16/22 Range/Units 15:32 WBC (4.8-10.8) X10*3/uL RBC (4.60-5.80) X10*6/uL Hgb (14.0-18.0) g/dl Hct (42.0-52.0) % MCV (80.0-98.0) fL MCH (27.0-33.0) pg MCHC (31.0-36.0) g/dl RDW (11.0-16.0) % Plt Count (160-400) X10*3/uL MPV (9.4-12.4) fL Immature Gran % (Auto) (0.0-0.4) % Neut % (Auto) (45-73) % Lymph % (Auto) (20-40) % Stevens % (Auto) (2-11) % Eos % (Auto) (0-4) % Baso % (Auto) (0-2) % Lymph # (Auto) (1.2-4.9) X10*3/uL Stevens # (Auto) (0.1-1.2) X10*3/uL Eos # (Auto) (0.0-0.4) X10*3/uL Baso # (Auto) (0.0-0.2) X10*3/uL Abs Immat Gran (auto) (0.00-0.03) X10*3/uL Absolute Neuts (auto) (2.0-8.3) x10*3/uL Absolute Nucleated RBC (0.0-0.012) X10*3/uL Nucleated RBC % (auto) (0.0-0.2) /100WBC Sodium 143 (135-145) mmol/L Potassium 4.9 D (3.3-5.1) mmol/L Chloride 108 (96-108) mmol/L Carbon Dioxide 27 (22-29) mmol/L Anion Gap 13 (12-20) BUN 6 L (9-16) mg/dL Creatinine 1.04 (0.5-1.4) mg/dL Estim Creat Clear Calc 91.2 Estimated GFR > 60 Random Glucose 72 (60-115) mg/dL Calcium 9.3 (8.4-10.2) mg/dL Total Bilirubin 0.3 (0.0-1.0) mg/dL AST 30 (5-37) U/L ALT 29 (0-40) U/L Alkaline Phosphatase 78 (39-117) U/L Total Protein 7.2 (6.5-8.0) g/dL Albumin 3.9 (3.5-5.0) g/dL Urine Opiates Screen (Not Detect) Urine Fentanyl Screen (Not Detect) Ur Barbiturates Screen (Not Detect) Ur Phencyclidine Scrn (Not Detect) Ur Amphetamines Screen (Not Detect) U Benzodiazepines Scrn (Not Detect) Urine Cocaine Screen (Not Detect) U Marijuana (THC) Screen (Not Detect) Ethyl Alcohol < 10 mg/dL Influenza Type A (PCR) (Negative) Influenza Type B (PCR) (Negative) RSV RNA Qual (PCR) (Negative) SARS-CoV-2 RNA (RT-PCR) (Negative) Discharge Plan Discharge Clinical Impression: Suicide ideation Patient Disposition: Still a Patient Prescriptions: No Action risperidone 1 mg tablet 1 mg PO BID Qty: 60 1RF fluoxetine 20 mg capsule 20 mg PO DAILY Qty: 30 1RF acetaminophen 500 mg tablet 500 mg PO Q6H PRN (Reason: pain) 30 Days Qty: 120 1RF dextromethorphan-guaifenesin [Adult Tussin Cough Congest DM] 10-100 mg/5 mL liquid 10 ml PO Q4H PRN (Reason: cough) Qty: 500 0RF miscellaneous medical supply Misc 1 ea miscellaneous DAILY Qty: 1 0RF Rx Instructions: Cane- with rubber handle - length of need 99+ Height 5'6 miscellaneous medical supply Misc 1 ea miscellaneous DAILY Qty: 1 0RF Rx Instructions: Back Belt Support - length of time 99+ Height 5 6 weight 207Lbs BMI 33.4 albuterol sulfate 90 mcg/actuation HFA aerosol inhaler 2 puff inhalation Q6H PRN (Reason: shortness of breath or wheezing) Qty: 8.5 0RF clonazepam 1 mg tablet 1 mg PO DAILY PRN (Reason: anxiety) 30 Days Qty: 30 0RF valacyclovir [Valtrex] 1 gram tablet 1,000 mg PO Q8H 7 Days Qty: 21 0RF omeprazole 20 mg capsule,delayed release(DR/EC) 20 mg PO BID Qty: 180 0RF valacyclovir [Valtrex] 1 gram tablet 1,000 mg PO DAILY Qty: 5 0RF prednisone 20 mg tablet 20 mg PO DAILY Qty: 5 0RF diphenhydramine HCl [Benadryl Allergy] 25 mg tablet 25 mg PO Q8H PRN (Reason: itching) Qty: 20 0RF prednisone 20 mg tablet 40 mg PO DAILY 5 Days Qty: 10 0RF albuterol sulfate 90 mcg/actuation HFA aerosol inhaler 2 puff inhalation Q4-6H PRN (Reason: shortness of breath or wheezing) Qty: 6.7 0RF nystatin [Nyamyc] 100,000 unit/gram powder 1 appl topical BID Qty: 60 0RF Rx Instructions: Apply to the affected area in your abdomen twice a day for 10 days doxycycline hyclate 100 mg tablet 100 mg PO BID Qty: 20 0RF Interventions: [place]-Suicide Risk Severity Scale Last Done: 04/16/22 15:54
[2022-04-16 15:38] LABS: MANUAL DIFF FLAG NO
[2022-04-16 15:49] LABS: Amphetamine Screen Urine Not Detected (Not Detect); Barbiturates, Urine Not Detected (Not Detect); Benzodiazepines Screen Urine Not Detected (Not Detect); Cannabinoid Screen Urine Not Detected (Not Detect); Cocaine Screen Urine POSITIVE (Not Detect); Fentanyl, urine Not Detected (Not Detect); Opiate Screen Urine Not Detected (Not Detect); Phencyclidine Screen Urine Not Detected (Not Detect)
[2022-04-16 15:58] LABS: Basophils Absolute Auto 0.1 X10*3/uL (0.0-0.2); Basophils Percent Auto 0.8 % (0-2); Eosinophils Absolute Auto 0.2 X10*3/uL (0.0-0.4); Eosinophils Percent Auto 3.3 % (0-4); Hematocrit 50.4 % (42.0-52.0); Hemoglobin 16.5 g/dl (14.0-18.0); Imm Gran Abs Auto 0.04 X10*3/uL (0.00-0.03); Imm Gran Pct Auto 0.6 % (0.0-0.4); Lymphocytes Absolute Auto 2.1 X10*3/uL (1.2-4.9); Lymphocytes Percent Auto 28.4 % (20-40); Mean Corpuscular HGB Conc 32.7 g/dl (31.0-36.0); Mean Corpuscular Hemoglobin 30.8 pg (27.0-33.0); Mean Platelet Volume 9.1 fL (9.4-12.4); Monocytes Absolute Auto 0.8 X10*3/uL (0.1-1.2); Monocytes Percent Auto 11.4 % (2-11); Neutrophils Percent Auto 55.5 % (45-73); Platelet Count 377 X10*3/uL (160-400); Red Blood Count 5.36 X10*6/uL (4.60-5.80); Red Cell Distribution Width 13.3 % (11.0-16.0); White Blood Count 7.2 X10*3/uL (4.8-10.8)
[2022-04-16 16:08] LABS: Alanine Aminotransferase 29 U/L (0-40); Albumin Level 3.9 g/dL (3.5-5.0); Alkaline Phosphatase 78 U/L (39-117); Anion Gap 13 (12-20); Aspartate Amino Transferase 30 U/L (5-37); Bilirubin Total 0.3 mg/dL (0.0-1.0); Blood Urea Nitrogen 6 mg/dL (9-16); Calcium 9.3 mg/dL (8.4-10.2); Carbon Dioxide 27 mmol/L (22-29); Chloride 108 mmol/L (96-108); Creatinine Clr Calc Pharmacy 91.2; Estimated Glomerular Filt Rate > 60; Glucose Random 72 mg/dL (60-115); Potassium 4.9 mmol/L (3.3-5.1); Sodium 143 mmol/L (135-145); Total Protein 7.2 g/dL (6.5-8.0)
[2022-04-16 16:16] LABS: Influenza A PCR NEGATIVE (Negative); Influenza B PCR NEGATIVE (Negative); Resp Syncy Virus RNA Qual PCR NEGATIVE (Negative); SARS COV2 PCR INHOUSE NEGATIVE (Negative)
[2022-04-16 16:46] LABS: Ethanol < 10 mg/dL
[2022-04-17 00:25] VITALS: BP 135/71; PULSE 84; RESP 18; TEMP 36.7; O2SAT 97
[2022-04-17] MEDS: Magnesium Hydrox/Alum Hydrox 30 ML ORAL.SUSP PO ×2 (00:28→22:20)
--- NOTE | 2022-04-17 04:31 | PC.ADMIT ---
Pt is a 56 yo male admitted to the unit after referral from CARE Team through the ED. Arrived on unit at 0015 this morning. Pt has hx of kidney failure, heart disease, thyroid issues and glaucoma. Pt's utox was positive for cocaine use. Pt's precipitant to admission were depression with SI with a plan to overdose on medications or run into heavy traffic as well as increasing auditory hallucinations. Pt has a hx of IPLOC and detoxes. Most recent IPLOC here at [facility] was on M5 in 02/2021. [facility], disheveled and tired. Pt did not want to fully participate in admission so much was retrieved from crisis evaluation. Provider production mechanic tin cans Steve notified of admission and orders obtained. Pt placed on 15 minute safety checks. Pt reports feeling safe on unit.
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
[2022-04-17 09:15] VITALS: BP 138/83; PULSE 75; RESP 20; TEMP 36.8; O2SAT 95
[2022-04-17] MEDS: hydrOXYzine HCL 50 MG TABLET PO (11:49)
[2022-04-17] MEDS: Cyclobenzaprine HCl 5 MG TABLET PO ×2 (15:38→22:16)
[2022-04-17] MEDS: LORazepam 1 MG TABLET PO ×2 (15:38→22:16)
[2022-04-17] MEDS: Propranolol HCL 10 MG TABLET PO ×2 (15:42→22:16)
[2022-04-17 22:12] VITALS: BP 137/82; PULSE 91; RESP 18
[2022-04-17] MEDS: OLANZapine 5 MG TABLET PO (22:16)
[2022-04-17] MEDS: Hydrocortisone 1 % Ointment 28.35 GM TUBE 1 APPL TOPICAL (22:19)
[2022-04-17] MEDS: Omeprazole 20 MG CAPSULE.DR PO (22:49)
[2022-04-18 09:15] VITALS: BP 118/75; PULSE 71; RESP 18; TEMP 36.6; O2SAT 95
[2022-04-18] MEDS: Omeprazole 20 MG CAPSULE.DR PO ×2 (09:24→16:25)
[2022-04-18] MEDS: Cyclobenzaprine HCl 5 MG TABLET PO ×3 (09:24→21:47)
[2022-04-18] MEDS: Propranolol HCL 10 MG TABLET PO ×3 (09:25→21:46)
--- NOTE | 2022-04-18 10:31 | HO.PSYCHPN ---
Subjective Subjective Date of Service: 04/18/22 Reason For Visit: SI Subjective Notes: Conditional Voluntary Interim History: Pt reports having back pain, which is affecting his sleep. He continues to endorse hearing whispers. He denies SI/HI. Pt reports feeling less restless, less involuntary movement with propanolol. Per nursing, poor sleep last night, frequently waking up. no behavioral concerns. Medication Compliance: Yes Review of Systems Constitutional: Reports no additional constitutional complaints, Denies chills, Reports difficulty sleeping, Denies fever(s) and Denies night sweats Eyes: Reports no additional eye complaints, Denies blurry vision, Denies change in vision, Denies diplopia, Denies eye discharge, Denies loss of vision and Denies eye pain Reports system reviewed and no additional complaints, except as documented and Denies dizziness Cardiovascular: Reports no additional cardiovascular complaints, Denies chest pain, Denies chest pain at rest, Denies chest pain with activity, Denies epigastric discomfort, Denies diaphoresis, Denies rapid heart rate, Denies irregular heart rhythm, Denies lightheadedness, Denies Loss of Consciousness and Denies dyspnea Respiratory: Reports no additional respiratory complaints, Denies cough and Denies dyspnea Gastrointestinal: Reports no additional gastrointestinal complaints, Denies abdominal pain, Denies melena, Denies hematochezia, Denies change in bowel habits and Denies change in stool character Genitourinary: Reports no additional male genitourinary complaints, Denies hematuria, Denies oliguria, Denies difficulty urinating, Denies dysuria, Denies urinary frequency, Denies urinary hesitancy, Denies urinary incontinence and Denies urinary urgency Musculoskeletal: Reports no additional musculoskeletal complaints, Reports back pain, Denies numbness and Denies tingling Denies dizziness, Denies loss of vision, Denies numbness and Denies tingling Psychiatric: Reports no additional psychiatric complaints and Reports suicidal ideation Endocrine: Reports no additional endocrine complaints Hematologic/Lymphatic: Reports no additional hematologic/lymphatic complaints Allergic/Immunologic: Reports no additional allergic/immunologic complaints Mental Status Exam Mental Status Exam Narrative: Appearance: wearing hospital gown, constant involuntary circular motions with bilat upper extremities, no tremor, restless and uncomfortable. Behavior: cooperative Psychomotor: circular involuntary motions of bilat UE Speech: clear, regular rate/rhythm/volume, spontaneous TP: poverty of speech, single word answers TC: wanting to restart treatment Mood: anxious Affect: congruent SI: plan to OD or jump off bridge. HI: denies AH/VH: AH of whispers Delusions: no overt delusions noted or reported. Insight/judgment: poor x 2. Memory/cog: alert, oriented x 3. not formally tested. Diagnostics Vital Signs (24Hr): Vital Signs - 24 hr 04/18/22 09:15 04/18/22 14:25 04/18/22 21:49 Temperature 97.8 F 97.2 F Pulse Rate 71 77 83 Respiratory Rate 18 18 16 Blood Pressure 118/75 114/78 143/78 H Pulse Oximetry 95 96 96 Oxygen Delivery Method Room Air Room Air Room Air BMI result Body Mass Index 36.6 Labs 04/16/22 15:32 04/16/22 15:32 Medications Medications Current Medications Acetaminophen (Acetaminophen 325 Mg Tablet) 650 mg PO Q6H PRN PRN Reason: Headache/Pain Mild Scale (1-3) Last Admin: 04/18/22 21:47 Dose: 650 mg Al Hydroxide/Mg Hydroxide (Magnesium Hydrox/Alum Hydrox 30 Ml Oral.Susp) 30 ml PO Q6H PRN PRN Reason: Heartburn/Nausea Last Admin: 04/17/22 22:20 Dose: 30 ml Cyclobenzaprine HCl (Cyclobenzaprine Hcl 5 Mg Tablet) 5 mg PO TID [facility] Last Admin: 04/18/22 21:47 Dose: 5 mg Hydrocortisone (Hydrocortisone 1 % Ointment 28.35 Gm Tube) 1 appl TOPICAL BID [facility]; Protocol Last Admin: 04/18/22 22:10 Dose: Not Given Hydroxyzine HCl (Hydroxyzine Hcl 50 Mg Tablet) 50 mg PO Q6H PRN PRN Reason: Anxiety Last Admin: 04/18/22 21:46 Dose: 50 mg Lorazepam (Lorazepam 1 Mg Tablet) 1 mg PO BEDTIME [facility] Last Admin: 04/18/22 21:46 Dose: 1 mg Magnesium Hydroxide (Milk Of Magnesia 30 Ml Oral.Susp) 30 ml PO DAILY PRN PRN Reason: Constipation Nicotine Polacrilex (Nicotine Polacrilex 2 Mg Gum) 4 mg BUCCAL Q2H PRN PRN Reason: Nicotine Cravings Olanzapine (Olanzapine 5 Mg Tablet) 5 mg PO TID PRN PRN Reason: agitation Olanzapine (Olanzapine 5 Mg Tablet) 5 mg PO BEDTIME [facility] Last Admin: 04/18/22 21:47 Dose: 5 mg Omeprazole (Omeprazole 20 Mg Capsule.) 20 mg PO BID@0630,1630 [facility] Last Admin: 04/18/22 16:25 Dose: 20 mg Propranolol HCl (Propranolol Hcl 10 Mg Tablet) 10 mg PO TID [facility]; Protocol Last Admin: 04/18/22 21:46 Dose: 10 mg Trazodone HCl (Trazodone Hcl 50 Mg Tablet) 50 mg PO BEDTIME PRN PRN Reason: Insomnia Allergies Allergies Allergy/AdvReac Type Severity Reaction Status Date / Time codeine [CODEINE] Allergy Intermediate RASH, Verified 10/05/21 11:49 shortness of breath ibuprofen [IBUPROFEN] Allergy Intermediate RASH/HIVES, Verified 10/05/21 11:49 redness and itching latex Allergy Intermediate redness Verified 10/05/21 11:49 and itching Assessment & Plan Assessment & Plan (1) Bipolar 1 disorder, depressed: Status: Acute Code(s): F31.9 - Bipolar disorder, unspecified (2) Cocaine use disorder, severe, dependence: Status: Acute Code(s): F14.20 - Cocaine dependence, uncomplicated Plan Mr. Denton is a 56 year-old male with hx of Bipolar Disorder, severe cocaine use disorder who self [place] [facility] reporting increase AH, depressed mood, poor sleep, suicidal ideation with plan to jump off bridge or OD on medications. His utox positive for cocaine. Pt presents with involuntary circular motions of bilat UE, not tremors. No perioral involvement. He appears restless, not so much LE movements. We discussed risks, benefits and alternative treatment options. We discussed starting olanzapine for mood and voices. we also discussed starting propanolol to see if it would have some impact on involuntary moments but unclear their etiology. PLAN 1. Admit to M3, CV, 15 minutes checks for safety. 2. Start olanzapine 5mg po qhs, prn doses. Propanolol 10mg po TID 3. Obtain collateral information 4. Aftercare planning. 04/18 continue tx. Reason for contiued inpatient stay Substantial Risk for: harm to self Time Spent With Patient Time: Total time managing care of this patient today ____ minutes.
[2022-04-18 14:25] VITALS: BP 114/78; PULSE 77; RESP 18; O2SAT 96
--- NOTE | 2022-04-18 16:54 | PC.NURSE ---
Late entry: CARLOS Chun assumed care of pt at 1500.
[2022-04-18] MEDS: LORazepam 1 MG TABLET PO (21:46)
[2022-04-18] MEDS: hydrOXYzine HCL 50 MG TABLET PO (21:46)
[2022-04-18] MEDS: OLANZapine 5 MG TABLET PO (21:47)
[2022-04-18] MEDS: Acetaminophen 325 MG TABLET 650 MG PO (21:47)
[2022-04-18 21:49] VITALS: BP 143/78; PULSE 83; RESP 16; TEMP 36.2; O2SAT 96
[2022-04-19] MEDS: Cyclobenzaprine HCl 5 MG TABLET PO ×3 (09:26→21:01)
[2022-04-19] MEDS: Propranolol HCL 10 MG TABLET PO (09:26)
[2022-04-19] MEDS: Omeprazole 20 MG CAPSULE.DR PO ×2 (09:26→15:55)
[2022-04-19] MEDS: Hydrocortisone 1 % Ointment 28.35 GM TUBE 1 APPL TOPICAL ×2 (09:27→21:03)
[2022-04-19 09:32] VITALS: BP 119/73; PULSE 81; RESP 18; TEMP 36.3; O2SAT 94
--- NOTE | 2022-04-19 18:11 | HO.PSYCHPN ---
Subjective Subjective Date of Service: 04/19/22 Reason For Visit: SI Interim History: endorses SI. depressed. sleeping now 1-2 hours nightly. AH has resolved. agreeable to have beta-rogelio DCed after having been given the warning that cocaine use with beta rogelio may result in [place]. no other changes made, no other requests or complaints. per staff, SI with plan [employer], increased AH> wa son M5 in 02/2021. renal and thyroid Dz. cocaine POS utix. not attending groups, isolative. deies dep/anx days, reports increased dep/anx eves. Mental Status Exam Mental Status Exam Narrative: Appearance: wearing hospital gown Behavior: no PMA/PMR Speech: clear, regular rate/rhythm/volume, spontaneous TP: linear and logical TC: wanting to restart treatment Mood: depressed Affect: congruent SI: plan to OD or jump off bridge. HI: denies AH/VH: denies Delusions: no overt delusions noted or reported. Insight/judgment: poor x 2. Memory/cog: alert, oriented x 3. not formally tested. Diagnostics Vital Signs (24Hr): Vital Signs - 24 hr 04/18/22 21:49 04/19/22 09:32 Temperature 97.2 F 97.4 F Pulse Rate 83 81 Respiratory Rate 16 18 Blood Pressure 143/78 H 119/73 Pulse Oximetry 96 94 Oxygen Delivery Method Room Air Room Air BMI result Body Mass Index 36.6 Labs 04/16/22 15:32 04/16/22 15:32 Medications Medications Current Medications Acetaminophen (Acetaminophen 325 Mg Tablet) 650 mg PO Q6H PRN PRN Reason: Headache/Pain Mild Scale (1-3) Last Admin: 04/18/22 21:47 Dose: 650 mg Al Hydroxide/Mg Hydroxide (Magnesium Hydrox/Alum Hydrox 30 Ml Oral.Susp) 30 ml PO Q6H PRN PRN Reason: Heartburn/Nausea Last Admin: 04/17/22 22:20 Dose: 30 ml Cyclobenzaprine HCl (Cyclobenzaprine Hcl 5 Mg Tablet) 5 mg PO TID [facility]INO Last Admin: 04/19/22 14:26 Dose: 5 mg Hydrocortisone (Hydrocortisone 1 % Ointment 28.35 Gm Tube) 1 appl TOPICAL BID [facility]; Protocol Last Admin: 04/19/22 09:27 Dose: 1 appl Hydroxyzine HCl (Hydroxyzine Hcl 50 Mg Tablet) 50 mg PO Q6H PRN PRN Reason: Anxiety Last Admin: 04/18/22 21:46 Dose: 50 mg Lorazepam (Lorazepam 1 Mg Tablet) 1 mg PO BEDTIME [facility] Last Admin: 04/18/22 21:46 Dose: 1 mg Magnesium Hydroxide (Milk Of Magnesia 30 Ml Oral.Susp) 30 ml PO DAILY PRN PRN Reason: Constipation Nicotine Polacrilex (Nicotine Polacrilex 2 Mg Gum) 4 mg BUCCAL Q2H PRN PRN Reason: Nicotine Cravings Olanzapine (Olanzapine 5 Mg Tablet) 5 mg PO TID PRN PRN Reason: agitation Olanzapine (Olanzapine 5 Mg Tablet) 5 mg PO BEDTIME [facility] Last Admin: 04/18/22 21:47 Dose: 5 mg Omeprazole (Omeprazole 20 Mg Capsule.Dr) 20 mg PO BID@0630,1630 [facility] Last Admin: 04/19/22 15:55 Dose: 20 mg Trazodone HCl (Trazodone Hcl 50 Mg Tablet) 50 mg PO BEDTIME PRN PRN Reason: Insomnia Allergies Allergies Allergy/AdvReac Type Severity Reaction Status Date / Time codeine [CODEINE] Allergy Intermediate RASH, Verified 10/05/21 11:49 shortness of breath ibuprofen [IBUPROFEN] Allergy Intermediate RASH/HIVES, Verified 10/05/21 11:49 redness and itching latex Allergy Intermediate redness Verified 10/05/21 11:49 and itching Assessment & Plan Assessment & Plan (1) Bipolar 1 disorder, depressed: Status: Acute Code(s): F31.9 - Bipolar disorder, unspecified (2) Cocaine use disorder, severe, dependence: Status: Acute Code(s): F14.20 - Cocaine dependence, uncomplicated Plan Mr. Denton is a 56 year-old male with hx of Bipolar Disorder, severe cocaine use disorder who self presented to [facility] [place] [facility] reporting increase AH, depressed mood, poor sleep, suicidal ideation with plan to jump off bridge or OD on medications. His utox positive for cocaine. Pt presents with involuntary circular motions of bilat UE, not tremors. No perioral involvement. He appears restless, not so much LE movements. We discussed risks, benefits and alternative treatment options. We discussed starting olanzapine for mood and voices. we also discussed starting propanolol to see if it would have some impact on involuntary moments but unclear their etiology. PLAN 1. Admit to M3, CV, 15 minutes checks for safety. 2. Start olanzapine 5mg po qhs, prn doses. Propanolol 10mg po TID 3. Obtain collateral information 4. Aftercare planning. 04/18 continue tx. 04/19: DC beta rogelio 2/2 risk of [place] if used with cocaine. otherwise continue prior Tx. Patient educated on: medication risk/benefits and substance abuse Reason for contiued inpatient stay Substantial Risk for: harm to self, inability to function and med/psych decompensation Time Spent With Patient Time: Total time managing care of this patient today _25___ minutes.
[2022-04-19 20:00] VITALS: BP 118/70; PULSE 89; RESP 16; TEMP 36.3; O2SAT 97
[2022-04-19] MEDS: OLANZapine 5 MG TABLET PO (21:01)
[2022-04-19] MEDS: Acetaminophen 325 MG TABLET 650 MG PO (21:02)
[2022-04-19] MEDS: LORazepam 1 MG TABLET PO (21:02)
[2022-04-19] MEDS: hydrOXYzine HCL 50 MG TABLET PO (21:02)
[2022-04-20 09:10] VITALS: BP 123/74; PULSE 82; RESP 20; TEMP 36.4; O2SAT 96
[2022-04-20] MEDS: Cyclobenzaprine HCl 5 MG TABLET PO ×3 (09:12→20:16)
[2022-04-20] MEDS: Omeprazole 20 MG CAPSULE.DR PO ×2 (09:12→16:23)
--- NOTE | 2022-04-20 13:22 | PC.NURSE ---
Patient reports he is current smoker, smokes 1 pack per day. Declines nicotine replacement therapy at this time stating it is better for his body.
--- NOTE | 2022-04-20 17:31 | HO.PSYCHPN ---
Subjective Subjective Date of Service: 04/20/22 Reason For Visit: SI Interim History: calm, cooperative. feeling improved. not sleeping well - agreeable to increase zyprexa at HS from 5 mg to 10 mg. per staff, feeling a bit better. poor sleep - states he is working on sleep meds with MD. anx/dep 8-9. eating well. Mental Status Exam Mental Status Exam Narrative: Appearance: wearing hospital gown Behavior: no PMA/PMR Speech: clear, regular rate/rhythm/volume, spontaneous TP: linear and logical TC: no delusions or paranoia expressed Mood: improved Affect: congruent SI: none expressed HI: denies AH/VH: denies Delusions: no overt delusions noted or reported. Insight/judgment: poor x 2. Memory/cog: alert, oriented x 3. not formally tested. Diagnostics Vital Signs (24Hr): Vital Signs - 24 hr 04/19/22 20:00 04/20/22 09:10 Temperature 97.3 F 97.6 F Pulse Rate 89 82 Respiratory Rate 16 20 Blood Pressure 118/70 123/74 Pulse Oximetry 97 96 Oxygen Delivery Method Room Air Room Air BMI result Body Mass Index 36.6 Labs 04/16/22 15:32 04/16/22 15:32 Medications Medications Current Medications Acetaminophen (Acetaminophen 325 Mg Tablet) 650 mg PO Q6H PRN PRN Reason: Headache/Pain Mild Scale (1-3) Last Admin: 04/19/22 21:02 Dose: 650 mg Al Hydroxide/Mg Hydroxide (Magnesium Hydrox/Alum Hydrox 30 Ml Oral.Susp) 30 ml PO Q6H PRN PRN Reason: Heartburn/Nausea Last Admin: 04/17/22 22:20 Dose: 30 ml Cyclobenzaprine HCl (Cyclobenzaprine Hcl 5 Mg Tablet) 5 mg PO TID [facility] Last Admin: 04/20/22 15:06 Dose: 5 mg Hydrocortisone (Hydrocortisone 1 % Ointment 28.35 Gm Tube) 1 appl TOPICAL BID [facility]; Protocol Last Admin: 04/20/22 09:26 Dose: Not Given Hydroxyzine HCl (Hydroxyzine Hcl 50 Mg Tablet) 50 mg PO Q6H PRN PRN Reason: Anxiety Last Admin: 04/19/22 21:02 Dose: 50 mg Lorazepam (Lorazepam 1 Mg Tablet) 1 mg PO BEDTIME [facility] Last Admin: 04/19/22 21:02 Dose: 1 mg Magnesium Hydroxide (Milk Of Magnesia 30 Ml Oral.Susp) 30 ml PO DAILY PRN PRN Reason: Constipation Nicotine Polacrilex (Nicotine Polacrilex 2 Mg Gum) 4 mg BUCCAL Q2H PRN PRN Reason: Nicotine Cravings Olanzapine (Olanzapine 5 Mg Tablet) 5 mg PO TID PRN PRN Reason: agitation Olanzapine (Olanzapine 10 Mg Tablet) 10 mg PO BEDTIME [facility] Omeprazole (Omeprazole 20 Mg Capsule.Dr) 20 mg PO BID@0630,1630 [facility] Last Admin: 04/20/22 16:23 Dose: 20 mg Trazodone HCl (Trazodone Hcl 50 Mg Tablet) 50 mg PO BEDTIME PRN PRN Reason: Insomnia Allergies Allergies Allergy/AdvReac Type Severity Reaction Status Date / Time codeine [CODEINE] Allergy Intermediate RASH, Verified 10/05/21 11:49 shortness of breath ibuprofen [IBUPROFEN] Allergy Intermediate RASH/HIVES, Verified 10/05/21 11:49 redness and itching latex Allergy Intermediate redness Verified 10/05/21 11:49 and itching Assessment & Plan Assessment & Plan (1) Bipolar 1 disorder, depressed: Status: Acute Code(s): F31.9 - Bipolar disorder, unspecified (2) Cocaine use disorder, severe, dependence: Status: Acute Code(s): F14.20 - Cocaine dependence, uncomplicated Plan Mr. Denton is a 56 year-old male with hx of Bipolar Disorder, severe cocaine use disorder who self presented to [facility] [place] [facility] reporting increase AH, depressed mood, poor sleep, suicidal ideation with plan to jump off bridge or OD on medications. His utox positive for cocaine. Pt presents with involuntary circular motions of bilat UE, not tremors. No perioral involvement. He appears restless, not so much LE movements. We discussed risks, benefits and alternative treatment options. We discussed starting olanzapine for mood and voices. we also discussed starting propanolol to see if it would have some impact on involuntary moments but unclear their etiology. PLAN 1. Admit to M3, CV, 15 minutes checks for safety. 2. Start olanzapine 5mg po qhs, prn doses. Propanolol 10mg po TID 3. Obtain collateral information 4. Aftercare planning. 04/18 continue tx. 04/19: DC beta rogelio 2/2 risk of MD if used with cocaine. otherwise continue prior Tx. 04/20: increase HS olanzapine to 10 mg. mood improved, poor sleep. no AH. Reason for contiued inpatient stay Substantial Risk for: inability to function and rapid decompensation Time Spent With Patient Time: Total time managing care of this patient today __20__ minutes.
[2022-04-20 19:45] VITALS: BP 132/70; PULSE 110; RESP 16; TEMP 36.6; O2SAT 95
[2022-04-20] MEDS: Hydrocortisone 1 % Ointment 28.35 GM TUBE 1 APPL TOPICAL (20:14)
[2022-04-20] MEDS: traZODone HCL 50 MG TABLET PO (20:15)
[2022-04-20] MEDS: Acetaminophen 325 MG TABLET 650 MG PO (20:15)
[2022-04-20] MEDS: OLANZapine 10 MG TABLET PO (20:16)
[2022-04-20] MEDS: LORazepam 1 MG TABLET PO (20:16)
[2022-04-21 09:02] VITALS: PULSE 78; RESP 18; TEMP 36.8; O2SAT 96
[2022-04-21] MEDS: Omeprazole 20 MG CAPSULE.DR PO ×2 (09:03→15:35)
[2022-04-21] MEDS: Cyclobenzaprine HCl 5 MG TABLET PO ×3 (09:03→20:50)
[2022-04-21] MEDS: Acetaminophen 325 MG TABLET 650 MG PO ×2 (09:04→15:35)
--- NOTE | 2022-04-21 15:46 | HO.PSYCHPN ---
Subjective Subjective Date of Service: 04/21/22 Reason For Visit: SI Interim History: sleeping midday, easily rousable. calm, cooperative. reports some AH last night after a couple days without. mood is tired. unclear what led to his difficulty sleeping last night on zyprexa 10 (up from 5 the night prior), but due to concern for akathisia, dosing lowered to 7.5. no other requests or complaints. per staff, anx/dep. no AH yesterday. isolative. worried about dispo plans. daytime sleepiness. +SI, no plan. Mental Status Exam Mental Status Exam Narrative: Appearance: wearing hospital gown Behavior: no PMA/PMR Speech: clear, regular rate/rhythm/volume, spontaneous TP: linear and logical TC: no delusions or paranoia expressed Mood: improved Affect: congruent SI: none expressed HI: denies AH/VH: denies Delusions: no overt delusions noted or reported. Insight/judgment: poor x 2. Memory/cog: alert, oriented x 3. not formally tested. Diagnostics Vital Signs (24Hr): Vital Signs - 24 hr 04/20/22 19:45 04/21/22 09:02 Temperature 97.9 F 98.3 F Pulse Rate 110 H 78 Respiratory Rate 16 18 Blood Pressure 132/70 Pulse Oximetry 95 96 Oxygen Delivery Method Room Air Room Air BMI result Body Mass Index 36.6 Labs 04/16/22 15:32 04/16/22 15:32 Medications Medications Current Medications Acetaminophen (Acetaminophen 325 Mg Tablet) 650 mg PO Q6H PRN PRN Reason: Headache/Pain Mild Scale (1-3) Last Admin: 04/21/22 15:35 Dose: 650 mg Al Hydroxide/Mg Hydroxide (Magnesium Hydrox/Alum Hydrox 30 Ml Oral.Susp) 30 ml PO Q6H PRN PRN Reason: Heartburn/Nausea Last Admin: 04/17/22 22:20 Dose: 30 ml Cyclobenzaprine HCl (Cyclobenzaprine Hcl 5 Mg Tablet) 5 mg PO TID ANTONINO Last Admin: 04/21/22 15:34 Dose: 5 mg Hydrocortisone (Hydrocortisone 1 % Ointment 28.35 Gm Tube) 1 appl TOPICAL BID [facility]INO; Protocol Last Admin: 04/21/22 09:04 Dose: Not Given Hydroxyzine HCl (Hydroxyzine Hcl 50 Mg Tablet) 50 mg PO Q6H PRN PRN Reason: Anxiety Last Admin: 04/19/22 21:02 Dose: 50 mg Lorazepam (Lorazepam 1 Mg Tablet) 1 mg PO BEDTIME [facility] Last Admin: 04/20/22 20:16 Dose: 1 mg Magnesium Hydroxide (Milk Of Magnesia 30 Ml Oral.Susp) 30 ml PO DAILY PRN PRN Reason: Constipation Nicotine Polacrilex (Nicotine Polacrilex 2 Mg Gum) 4 mg BUCCAL Q2H PRN PRN Reason: Nicotine Cravings Olanzapine (Olanzapine 5 Mg Tablet) 5 mg PO TID PRN PRN Reason: agitation Olanzapine (Olanzapine 7.5 Mg Tablet) 7.5 mg PO BEDTIME [facility] Omeprazole (Omeprazole 20 Mg Capsule.Dr) 20 mg PO BID@0630,1630 [facility] Last Admin: 04/21/22 15:35 Dose: 20 mg Trazodone HCl (Trazodone Hcl 50 Mg Tablet) 50 mg PO BEDTIME PRN PRN Reason: Insomnia Last Admin: 04/20/22 20:15 Dose: 50 mg Allergies Allergies Allergy/AdvReac Type Severity Reaction Status Date / Time codeine [CODEINE] Allergy Intermediate RASH, Verified 10/05/21 11:49 shortness of breath ibuprofen [IBUPROFEN] Allergy Intermediate RASH/HIVES, Verified 10/05/21 11:49 redness and itching latex Allergy Intermediate redness Verified 10/05/21 11:49 and itching Assessment & Plan Assessment & Plan (1) Bipolar 1 disorder, depressed: Status: Acute Code(s): F31.9 - Bipolar disorder, unspecified (2) Cocaine use disorder, severe, dependence: Status: Acute Code(s): F14.20 - Cocaine dependence, uncomplicated Plan Mr. Denton is a 56 year-old male with hx of Bipolar Disorder, severe cocaine use disorder who self presented [place] [facility] [place] increase AH, depressed mood, poor sleep, suicidal ideation with plan to jump off bridge or OD on medications. His utox positive for cocaine. Pt presents with involuntary circular motions of bilat UE, not tremors. No perioral involvement. He appears restless, not so much LE movements. We discussed risks, benefits and alternative treatment options. We discussed starting olanzapine for mood and voices. we also discussed starting propanolol to see if it would have some impact on involuntary moments but unclear their etiology. PLAN 1. Admit to , CV, 15 minutes checks for safety. 2. Start olanzapine 5mg po qhs, prn doses. Propanolol 10mg po TID 3. Obtain collateral information 4. Aftercare planning. 04/18 continue tx. 04/19: DC beta rogelio 2/2 risk of [place] if used with cocaine. otherwise continue prior Tx. 04/20: increase HS olanzapine to 10 mg. mood improved, poor sleep. no AH. 04/21: poor sleep, increase AH last night. decrease olanzapine to 7.5 QHS due to risk of akathisia. Patient educated on: medication risk/benefits Reason for contiued inpatient stay Substantial Risk for: harm to self, inability to function and rapid decompensation Time Spent With Patient Time: Total time managing care of this patient today _25___ minutes.
[2022-04-21 20:48] VITALS: BP 135/79; PULSE 85; RESP 18; TEMP 36.5; O2SAT 97
[2022-04-21] MEDS: Hydrocortisone 1 % Ointment 28.35 GM TUBE 1 APPL TOPICAL (20:49)
[2022-04-21] MEDS: LORazepam 1 MG TABLET PO (20:51)
[2022-04-21] MEDS: OLANZapine 7.5 MG TABLET PO (20:51)
[2022-04-21] MEDS: hydrOXYzine HCL 50 MG TABLET PO (21:18)
[2022-04-21] MEDS: traZODone HCL 50 MG TABLET PO (21:18)
[2022-04-22] MEDS: Omeprazole 20 MG CAPSULE.DR PO ×2 (07:34→16:27)
[2022-04-22] MEDS: Cyclobenzaprine HCl 5 MG TABLET PO ×3 (08:34→21:36)
[2022-04-22] MEDS: Hydrocortisone 1 % Ointment 28.35 GM TUBE 1 APPL TOPICAL ×2 (09:12→21:35)
[2022-04-22 09:29] VITALS: BP 118/73; PULSE 96; RESP 16; TEMP 36.7; O2SAT 96
[2022-04-22 11:04] VITALS: BMI 33.0
--- NOTE | 2022-04-22 15:04 | HO.PSYCHPN ---
Subjective Subjective Date of Service: 04/22/22 Reason For Visit: SI Interim History: lying in bed as per usual. either awake or easily roused. reports AH have resolved completely and no SI. having trouble sleeping. thinking toward discharge plans. agreeable to trial of remeron for sleep. per staff, isolative. spending most of his time in his room. c/o back and hip pain. c/o poor sleep yesterday. slept well last night. Mental Status Exam Mental Status Exam Narrative: Appearance: wearing hospital gown Behavior: no PMA/PMR Speech: clear, regular rate/rhythm/volume, spontaneous TP: linear and logical TC: no delusions or paranoia expressed Mood: improved Affect: congruent SI: none expressed HI: denies AH/VH: denies Delusions: no overt delusions noted or reported. Insight/judgment: poor x 2. Memory/cog: alert, oriented x 3. not formally tested. Diagnostics Vital Signs (24Hr): Vital Signs - 24 hr 04/21/22 20:48 04/22/22 09:29 Temperature 97.7 F 98.1 F Pulse Rate 85 96 Respiratory Rate 18 16 Blood Pressure 135/79 118/73 Pulse Oximetry 97 96 Oxygen Delivery Method Room Air Room Air BMI result Body Mass Index 33.0 Labs 04/16/22 15:32 04/16/22 15:32 Medications Medications Current Medications Acetaminophen (Acetaminophen 325 Mg Tablet) 650 mg PO Q6H PRN PRN Reason: Headache/Pain Mild Scale (1-3) Last Admin: 04/21/22 15:35 Dose: 650 mg Al Hydroxide/Mg Hydroxide (Magnesium Hydrox/Alum Hydrox 30 Ml Oral.Susp) 30 ml PO Q6H PRN PRN Reason: Heartburn/Nausea Last Admin: 04/17/22 22:20 Dose: 30 ml Cyclobenzaprine HCl (Cyclobenzaprine Hcl 5 Mg Tablet) 5 mg PO TID [facility]TONINO Last Admin: 04/22/22 08:34 Dose: 5 mg Hydrocortisone (Hydrocortisone 1 % Ointment 28.35 Gm Tube) 1 appl TOPICAL BID [facility]TONINO; Protocol Last Admin: 04/22/22 09:12 Dose: 1 appl Hydroxyzine HCl (Hydroxyzine Hcl 50 Mg Tablet) 50 mg PO Q6H PRN PRN Reason: Anxiety Last Admin: 04/21/22 21:18 Dose: 50 mg Lorazepam (Lorazepam 1 Mg Tablet) 1 mg PO BEDTIME [facility] Last Admin: 04/21/22 20:51 Dose: 1 mg Magnesium Hydroxide (Milk Of Magnesia 30 Ml Oral.Susp) 30 ml PO DAILY PRN PRN Reason: Constipation Mirtazapine (Mirtazapine 30 Mg Tablet) 30 mg PO BEDTIME [facility] Nicotine Polacrilex (Nicotine Polacrilex 2 Mg Gum) 4 mg BUCCAL Q2H PRN PRN Reason: Nicotine Cravings Olanzapine (Olanzapine 5 Mg Tablet) 5 mg PO TID PRN PRN Reason: agitation Olanzapine (Olanzapine 7.5 Mg Tablet) 7.5 mg PO BEDTIME [facility] Last Admin: 04/21/22 20:51 Dose: 7.5 mg Omeprazole (Omeprazole 20 Mg Capsule.Dr) 20 mg PO BID@0630,1630 [facility] Last Admin: 04/22/22 07:34 Dose: 20 mg Allergies Allergies Allergy/AdvReac Type Severity Reaction Status Date / Time codeine [CODEINE] Allergy Intermediate RASH, Verified 10/05/21 11:49 shortness of breath ibuprofen [IBUPROFEN] Allergy Intermediate RASH/HIVES, Verified 10/05/21 11:49 redness and itching latex Allergy Intermediate redness Verified 10/05/21 11:49 and itching Assessment & Plan Assessment & Plan (1) Bipolar 1 disorder, depressed: Status: Acute Code(s): F31.9 - Bipolar disorder, unspecified (2) Cocaine use disorder, severe, dependence: Status: Acute Code(s): F14.20 - Cocaine dependence, uncomplicated Plan Mr. Denton is a 56 year-old male with hx of Bipolar Disorder, severe cocaine use disorder who self presented to [facility] reporting increase AH, depressed mood, poor sleep, suicidal ideation with plan to jump off bridge or OD on medications. His utox positive for cocaine. Pt presents with involuntary circular motions of bilat UE, not tremors. No perioral involvement. He appears restless, not so much LE movements. We discussed risks, benefits and alternative treatment options. We discussed starting olanzapine for mood and voices. we also discussed starting propanolol to see if it would have some impact on involuntary moments but unclear their etiology. PLAN 1. Admit to M3, CV, 15 minutes checks for safety. 2. Start olanzapine 5mg po qhs, prn doses. Propanolol 10mg po TID 3. Obtain collateral information 4. Aftercare planning. 04/18 continue tx. 04/19: DC beta rogelio 2/2 risk of [place] if used with cocaine. otherwise continue prior Tx. 04/20: increase HS olanzapine to 10 mg. mood improved, poor sleep. no AH. 04/21: poor sleep, increase AH last night. decrease olanzapine to 7.5 QHS due to risk of akathisia. 04/22: no AH. add remeron for sleep. doing discharge planning. future-oriented, pleasant. Reason for contiued inpatient stay Substantial Risk for: inability to function and rapid decompensation Time Spent With Patient Time: Total time managing care of this patient today _25___ minutes.
[2022-04-22] MEDS: Acetaminophen 325 MG TABLET 650 MG PO (21:35)
[2022-04-22 21:36] VITALS: BP 122/82; PULSE 100; RESP 18; TEMP 36.6; O2SAT 98
[2022-04-22] MEDS: LORazepam 1 MG TABLET PO (21:36)
[2022-04-22] MEDS: OLANZapine 5 MG TABLET PO (21:36)
[2022-04-22] MEDS: Mirtazapine 30 MG TABLET PO (21:36)
[2022-04-22] MEDS: hydrOXYzine HCL 50 MG TABLET PO (21:36)
[2022-04-22] MEDS: OLANZapine 7.5 MG TABLET PO (21:36)
[2022-04-23 08:52] VITALS: BP 141/85; PULSE 102; RESP 18; TEMP 36.6; O2SAT 98
[2022-04-23] MEDS: Cyclobenzaprine HCl 5 MG TABLET PO ×3 (08:53→21:32)
[2022-04-23] MEDS: Omeprazole 20 MG CAPSULE.DR PO ×2 (08:53→15:58)
--- NOTE | 2022-04-23 12:26 | HO.PSYCHPN ---
Subjective Subjective Date of Service: 04/23/22 Reason For Visit: SI Interim History: calm, cooperative. denies AH, sleeping well, mind's clear, i feel good. planning for discharge next week, tuesday. aware of ativan taper. per staff, asleep most of the day. AVH. vocies of [employer]. active, appropriate. doing better. c/o poor sleep but appears to sleep all NOC. Mental Status Exam Mental Status Exam Narrative: Appearance: wearing hospital gown Behavior: no PMA/PMR Speech: clear, regular rate/rhythm/volume, spontaneous TP: linear and logical TC: no delusions or paranoia expressed Mood: i feel good Affect: congruent SI: none expressed HI: none expressed AH/VH: denies Delusions: no overt delusions noted or reported. Insight/judgment: poor x 2. Memory/cog: alert, oriented x 3. not formally tested. Diagnostics Vital Signs (24Hr): Vital Signs - 24 hr 04/22/22 21:36 04/23/22 08:52 Temperature 97.8 F 97.9 F Pulse Rate 100 102 H Respiratory Rate 18 18 Blood Pressure 122/82 141/85 H Pulse Oximetry 98 98 Oxygen Delivery Method Room Air Room Air BMI result Body Mass Index 33.0 Labs 04/16/22 15:32 04/16/22 15:32 Medications Medications Current Medications Acetaminophen (Acetaminophen 325 Mg Tablet) 650 mg PO Q6H PRN PRN Reason: Headache/Pain Mild Scale (1-3) Last Admin: 04/22/22 21:35 Dose: 650 mg Al Hydroxide/Mg Hydroxide (Magnesium Hydrox/Alum Hydrox 30 Ml Oral.Susp) 30 ml PO Q6H PRN PRN Reason: Heartburn/Nausea Last Admin: 04/17/22 22:20 Dose: 30 ml Cyclobenzaprine HCl (Cyclobenzaprine Hcl 5 Mg Tablet) 5 mg PO TID ANTONINO Last Admin: 04/23/22 08:53 Dose: 5 mg Hydrocortisone (Hydrocortisone 1 % Ointment 28.35 Gm Tube) 1 appl TOPICAL BID [facility]INO; Protocol Last Admin: 04/23/22 08:53 Dose: Not Given Hydroxyzine HCl (Hydroxyzine Hcl 50 Mg Tablet) 50 mg PO Q6H PRN PRN Reason: Anxiety Last Admin: 04/22/22 21:36 Dose: 50 mg Lorazepam (Lorazepam 1 Mg Tablet) 1 mg PO BEDTIME [facility] Last Admin: 04/22/22 21:36 Dose: 1 mg Magnesium Hydroxide (Milk Of Magnesia 30 Ml Oral.Susp) 30 ml PO DAILY PRN PRN Reason: Constipation Mirtazapine (Mirtazapine 30 Mg Tablet) 30 mg PO BEDTIME [facility] Last Admin: 04/22/22 21:36 Dose: 30 mg Nicotine Polacrilex (Nicotine Polacrilex 2 Mg Gum) 4 mg BUCCAL Q2H PRN PRN Reason: Nicotine Cravings Olanzapine (Olanzapine 5 Mg Tablet) 5 mg PO TID PRN PRN Reason: agitation Last Admin: 04/22/22 21:36 Dose: 5 mg Olanzapine (Olanzapine 7.5 Mg Tablet) 7.5 mg PO BEDTIME [facility] Last Admin: 04/22/22 21:36 Dose: 7.5 mg Omeprazole (Omeprazole 20 Mg Capsule.Dr) 20 mg PO BID@0630,1630 [facility] Last Admin: 04/23/22 08:53 Dose: 20 mg Allergies Allergies Allergy/AdvReac Type Severity Reaction Status Date / Time codeine [CODEINE] Allergy Intermediate RASH, Verified 10/05/21 11:49 shortness of breath ibuprofen [IBUPROFEN] Allergy Intermediate RASH/HIVES, Verified 10/05/21 11:49 redness and itching latex Allergy Intermediate redness Verified 10/05/21 11:49 and itching Assessment & Plan Assessment & Plan (1) Bipolar 1 disorder, depressed: Status: Acute Code(s): F31.9 - Bipolar disorder, unspecified (2) Cocaine use disorder, severe, dependence: Status: Acute Code(s): F14.20 - Cocaine dependence, uncomplicated Plan Mr. Denton is a 56 year-old male with hx of Bipolar Disorder, severe cocaine use disorder who self presented to [facility] reporting increase AH, depressed mood, poor sleep, suicidal ideation with plan to jump off bridge or OD on medications. His utox positive for cocaine. Pt presents with involuntary circular motions of bilat UE, not tremors. No perioral involvement. He appears restless, not so much LE movements. We discussed risks, benefits and alternative treatment options. We discussed starting olanzapine for mood and voices. we also discussed starting propanolol to see if it would have some impact on involuntary moments but unclear their etiology. PLAN 1. Admit to M3, CV, 15 minutes checks for safety. 2. Start olanzapine 5mg po qhs, prn doses. Propanolol 10mg po TID 3. Obtain collateral information 4. Aftercare planning. 04/18 continue tx. 04/19: DC beta rogelio 2/2 risk of [place] if used with cocaine. otherwise continue prior Tx. 04/20: increase HS olanzapine to 10 mg. mood improved, poor sleep. no AH. 04/21: poor sleep, increase AH last night. decrease olanzapine to 7.5 QHS due to risk of akathisia. 04/22: no AH. add remeron for sleep. doing discharge planning. future-oriented, pleasant. 04/23: no AH. sleeping well. mind's clear. i feel good. planning for discharge next tuesday. no change in mgmt. Reason for contiued inpatient stay Substantial Risk for: inability to function and rapid decompensation Time Spent With Patient Time: Total time managing care of this patient today __25__ minutes.
[2022-04-23] MEDS: Acetaminophen 325 MG TABLET 650 MG PO (21:32)
[2022-04-23] MEDS: Mirtazapine 30 MG TABLET PO (21:33)
[2022-04-23] MEDS: OLANZapine 7.5 MG TABLET PO (21:33)
[2022-04-23] MEDS: LORazepam 0.5 MG TABLET PO (21:33)
[2022-04-23] MEDS: OLANZapine 5 MG TABLET PO (21:33)
[2022-04-23] MEDS: hydrOXYzine HCL 50 MG TABLET PO (21:33)
[2022-04-23 21:36] VITALS: BP 136/75; PULSE 86; TEMP 36.4; O2SAT 95
[2022-04-24 06:00] VITALS: BP 115/73; PULSE 83; RESP 20; TEMP 36.6; O2SAT 97
[2022-04-24] MEDS: Acetaminophen 325 MG TABLET 650 MG PO ×2 (09:10→20:13)
[2022-04-24] MEDS: Cyclobenzaprine HCl 5 MG TABLET PO ×3 (09:10→20:14)
[2022-04-24] MEDS: Omeprazole 20 MG CAPSULE.DR PO ×2 (09:11→16:55)
--- NOTE | 2022-04-24 18:11 | P.PNPSI_ITS ---
Subjective Subjective Date of Service: 04/24/22 Reason For Visit: SI Interim History: Met with patient. Discussed with Nursing. Chart reviewed. Overall has been isolative, but pleasant. Patient reports that he is very thankful for the care he has been given. Reports mood is improving. Sleep is good. Denies voices. Feels safe. No suicidal thoughts. Hopeful around discharge planning and returning to IOP program. Reports also having probation support that will and in 2 months. Feels that medications are helpful. No concerns. Medication Compliance: Yes Side effects from medications: No Attending Groups: No Review of Systems Acute medical concerns: No Review of Systems Review of Systems Yes all other systems are reviewed and are negative Mental Status Exam Mental Status Exam Narrative: Pleasant. Engaged. Appropriately dressed. Hygiene fair. Organized. Euthymic. No SI. No HI. No agitation. No psychosis. Insight and judgment fair Diagnostics Vital Signs (24Hr): Vital Signs - 24 hr 04/23/22 21:36 04/24/22 06:00 Temperature 97.6 F 97.9 F Pulse Rate 86 83 Respiratory Rate 20 Blood Pressure 136/75 115/73 Pulse Oximetry 95 97 Oxygen Delivery Method Room Air Room Air BMI result Body Mass Index 33.0 Labs 04/16/22 15:32 04/16/22 15:32 Medications Medications Current Medications Acetaminophen (Acetaminophen 325 Mg Tablet) 650 mg PO Q6H PRN PRN Reason: Headache/Pain Mild Scale (1-3) Last Admin: 04/24/22 09:10 Dose: 650 mg Al Hydroxide/Mg Hydroxide (Magnesium Hydrox/Alum Hydrox 30 Ml Oral.Susp) 30 ml PO Q6H PRN PRN Reason: Heartburn/Nausea Last Admin: 04/17/22 22:20 Dose: 30 ml Cyclobenzaprine HCl (Cyclobenzaprine Hcl 5 Mg Tablet) 5 mg PO TID [facility] Last Admin: 04/24/22 15:43 Dose: 5 mg Hydrocortisone (Hydrocortisone 1 % Ointment 28.35 Gm Tube) 1 appl TOPICAL BID [facility]; Protocol Last Admin: 04/24/22 09:11 Dose: Not Given Hydroxyzine HCl (Hydroxyzine Hcl 50 Mg Tablet) 50 mg PO Q6H PRN PRN Reason: Anxiety Last Admin: 04/23/22 21:33 Dose: 50 mg Lorazepam (Lorazepam 0.5 Mg Tablet) 0.5 mg PO BEDTIME [facility] Stop: 04/25/22 20:59 Last Admin: 04/23/22 21:33 Dose: 0.5 mg Magnesium Hydroxide (Milk Of Magnesia 30 Ml Oral.Susp) 30 ml PO DAILY PRN PRN Reason: Constipation Mirtazapine (Mirtazapine 30 Mg Tablet) 30 mg PO BEDTIME [facility] Last Admin: 04/23/22 21:33 Dose: 30 mg Nicotine Polacrilex (Nicotine Polacrilex 2 Mg Gum) 4 mg BUCCAL Q2H PRN PRN Reason: Nicotine Cravings Olanzapine (Olanzapine 5 Mg Tablet) 5 mg PO TID PRN PRN Reason: agitation Last Admin: 04/23/22 21:33 Dose: 5 mg Olanzapine (Olanzapine 7.5 Mg Tablet) 7.5 mg PO BEDTIME [facility] Last Admin: 04/23/22 21:33 Dose: 7.5 mg Omeprazole (Omeprazole 20 Mg Capsule.Dr) 20 mg PO BID@0630,1630 [facility] Last Admin: 04/24/22 16:55 Dose: 20 mg Allergies Allergies Allergy/AdvReac Type Severity Reaction Status Date / Time codeine [CODEINE] Allergy Intermediate RASH, Verified 10/05/21 11:49 shortness of breath ibuprofen [IBUPROFEN] Allergy Intermediate RASH/HIVES, Verified 10/05/21 11:49 redness and itching latex Allergy Intermediate redness Verified 10/05/21 11:49 and itching Assessment & Plan Assessment & Plan (1) Bipolar 1 disorder, depressed: Status: Acute Code(s): F31.9 - Bipolar disorder, unspecified (2) Cocaine use disorder, severe, dependence: Status: Acute Code(s): F14.20 - Cocaine dependence, uncomplicated Plan Mr. Denton is a 56 year-old male with hx of Bipolar Disorder, severe cocaine use disorder who self presented to [facility] reporting increase AH, depressed mood, poor sleep, suicidal ideation with plan to jump off bridge or OD on medications. His utox positive for cocaine. Pt presents with involuntary circular motions of bilat UE, not tremors. No perioral involvement. He appears restless, not so much LE movements. We discussed risks, benefits and alternative treatment options. We discussed starting olanzapine for mood and voices. we also discussed starting propanolol to see if it would have some impact on involuntary moments but unclear their etiology. PLAN 1. Admit to , CV, 15 minutes checks for safety. 2. Start olanzapine 5mg po qhs, prn doses. Propanolol 10mg po TID 3. Obtain collateral information 4. Aftercare planning. 04/18 continue tx. 04/19: DC beta rogelio 2/2 risk of [place] if used with cocaine. otherwise continue prior Tx. 04/20: increase HS olanzapine to 10 mg. mood improved, poor sleep. no AH. 04/21: poor sleep, increase AH last night. decrease olanzapine to 7.5 QHS due to risk of akathisia. 04/22: no AH. add remeron for sleep. doing discharge planning. future- oriented, pleasant. 04/23: no AH. sleeping well. mind's clear. i feel good. planning for discharge next tuesday. no change in mgmt. 04/24/2022: No changes to current treatment plan Reason for contiued inpatient stay Substantial Risk for: rapid decompensation Time Spent With Patient Time: Total time managing care of this patient today ____ minutes.
[2022-04-24 19:55] VITALS: BP 115/66; PULSE 94; RESP 16; TEMP 36.6; O2SAT 97
[2022-04-24] MEDS: OLANZapine 7.5 MG TABLET PO (20:14)
[2022-04-24] MEDS: hydrOXYzine HCL 50 MG TABLET PO (20:14)
[2022-04-24] MEDS: LORazepam 0.5 MG TABLET PO (20:14)
[2022-04-24] MEDS: Mirtazapine 30 MG TABLET PO (20:14)
[2022-04-24] MEDS: Hydrocortisone 1 % Ointment 28.35 GM TUBE 1 APPL TOPICAL (20:15)
[2022-04-25 09:02] VITALS: BP 113/70; PULSE 89; RESP 18; TEMP 36.6; O2SAT 96
[2022-04-25] MEDS: Omeprazole 20 MG CAPSULE.DR PO ×2 (09:03→16:04)
[2022-04-25] MEDS: Acetaminophen 325 MG TABLET 650 MG PO ×2 (09:03→22:17)
[2022-04-25] MEDS: Cyclobenzaprine HCl 5 MG TABLET PO ×3 (09:04→20:28)
--- NOTE | 2022-04-25 12:21 | P.PNPSI_ITS ---
Subjective Subjective Date of Service: 04/25/22 Reason For Visit: SI Interim History: Met with patient. Discussed with Nursing. Chart reviewed. Restless legs last night, otherwise isolative, but pleasant. Patient reports feeling bright in mood. Did report restless legs last night and also had it 2 nights ago. Denies voices. Feels safe. No suicidal thoughts. Remains hopeful around discharge planning and returning to IOP program. Feels that medications are helpful. Discussed requip Medication Compliance: Yes Side effects from medications: Yes (? restless legs) Attending Groups: Intermittent Review of Systems Acute medical concerns: No Review of Systems Review of Systems Yes all other systems are reviewed and are negative Mental Status Exam Mental Status Exam Narrative: Pleasant. Engaged. Appropriately dressed. Hygiene fair. Organized. Euthymic. No SI. No HI. No agitation. No psychosis. Insight and judgment fair Diagnostics Vital Signs (24Hr): Vital Signs - 24 hr 04/24/22 19:55 04/25/22 09:02 Temperature 97.9 F 97.9 F Pulse Rate 94 89 Respiratory Rate 16 18 Blood Pressure 115/66 113/70 Pulse Oximetry 97 96 Oxygen Delivery Method Room Air Room Air BMI result Body Mass Index 33.0 Labs 04/16/22 15:32 04/16/22 15:32 Medications Medications Current Medications Acetaminophen (Acetaminophen 325 Mg Tablet) 650 mg PO Q6H PRN PRN Reason: Headache/Pain Mild Scale (1-3) Last Admin: 04/25/22 09:03 Dose: 650 mg Al Hydroxide/Mg Hydroxide (Magnesium Hydrox/Alum Hydrox 30 Ml Oral.Susp) 30 ml PO Q6H PRN PRN Reason: Heartburn/Nausea Last Admin: 04/17/22 22:20 Dose: 30 ml Cyclobenzaprine HCl (Cyclobenzaprine Hcl 5 Mg Tablet) 5 mg PO TID ANTONINO Last Admin: 04/25/22 09:04 Dose: 5 mg Hydrocortisone (Hydrocortisone 1 % Ointment 28.35 Gm Tube) 1 appl TOPICAL BID [facility]; Protocol Last Admin: 04/25/22 09:58 Dose: Not Given Hydroxyzine HCl (Hydroxyzine Hcl 50 Mg Tablet) 50 mg PO Q6H PRN PRN Reason: Anxiety Last Admin: 04/24/22 20:14 Dose: 50 mg Lorazepam (Lorazepam 0.5 Mg Tablet) 0.5 mg PO BEDTIME [facility] Stop: 04/25/22 20:59 Last Admin: 04/24/22 20:14 Dose: 0.5 mg Magnesium Hydroxide (Milk Of Magnesia 30 Ml Oral.Susp) 30 ml PO DAILY PRN PRN Reason: Constipation Mirtazapine (Mirtazapine 30 Mg Tablet) 30 mg PO BEDTIME [facility] Last Admin: 04/24/22 20:14 Dose: 30 mg Nicotine Polacrilex (Nicotine Polacrilex 2 Mg Gum) 4 mg BUCCAL Q2H PRN PRN Reason: Nicotine Cravings Olanzapine (Olanzapine 5 Mg Tablet) 5 mg PO TID PRN PRN Reason: agitation Last Admin: 04/23/22 21:33 Dose: 5 mg Olanzapine (Olanzapine 7.5 Mg Tablet) 7.5 mg PO BEDTIME [facility] Last Admin: 04/24/22 20:14 Dose: 7.5 mg Omeprazole (Omeprazole 20 Mg Capsule.Dr) 20 mg PO BID@0630,1630 [facility] Last Admin: 04/25/22 09:03 Dose: 20 mg Allergies Allergies Allergy/AdvReac Type Severity Reaction Status Date / Time codeine [CODEINE] Allergy Intermediate RASH, Verified 10/05/21 11:49 shortness of breath ibuprofen [IBUPROFEN] Allergy Intermediate RASH/HIVES, Verified 10/05/21 11:49 redness and itching latex Allergy Intermediate redness Verified 10/05/21 11:49 and itching Assessment & Plan Assessment & Plan (1) Bipolar 1 disorder, depressed: Status: Acute Code(s): F31.9 - Bipolar disorder, unspecified (2) Cocaine use disorder, severe, dependence: Status: Acute Code(s): F14.20 - Cocaine dependence, uncomplicated Plan Mr. Denton is a 56 year-old male with hx of Bipolar Disorder, severe cocaine use disorder who self presented to [facility] reporting increase AH, depressed mood, poor sleep, suicidal ideation with plan to jump off bridge or OD on medications. His utox positive for cocaine. Pt presents with involuntary circular motions of bilat UE, not tremors. No perioral involvement. He appears restless, not so much LE movements. We discussed risks, benefits and alternative treatment options. We discussed starting olanzapine for mood and voices. we also discussed starting propanolol to see if it would have some impact on involuntary moments but unclear their etiology. PLAN 1. Admit to M3, CV, 15 minutes checks for safety. 2. Start olanzapine 5mg po qhs, prn doses. Propanolol 10mg po TID 3. Obtain collateral information 4. Aftercare planning. 04/18 continue tx. 04/19: DC beta rogelio 2/2 risk of [place] if used with cocaine. otherwise continue prior Tx. 04/20: increase HS olanzapine to 10 mg. mood improved, poor sleep. no AH. 04/21: poor sleep, increase AH last night. decrease olanzapine to 7.5 QHS due to risk of akathisia. 04/22: no AH. add remeron for sleep. doing discharge planning. future- oriented, pleasant. 04/23: no AH. sleeping well. mind's clear. i feel good. planning for discharge next tuesday. no change in mgmt. 04/24/2022: No changes to current treatment plan 04/25: start requip Reason for contiued inpatient stay Substantial Risk for: harm to self Time Spent With Patient Time: Total time managing care of this patient today ____ minutes.
[2022-04-25 20:00] VITALS: BP 140/73; PULSE 82; RESP 16; TEMP 36.6; O2SAT 99
[2022-04-25] MEDS: rOPINIRole HCL 0.25 MG TABLET PO (20:28)
[2022-04-25] MEDS: OLANZapine 7.5 MG TABLET PO (20:28)
[2022-04-25] MEDS: LORazepam 0.5 MG TABLET PO (20:28)
[2022-04-25] MEDS: hydrOXYzine HCL 50 MG TABLET PO (20:28)
[2022-04-25] MEDS: Mirtazapine 30 MG TABLET PO (20:28)
[2022-04-25] MEDS: Hydrocortisone 1 % Ointment 28.35 GM TUBE 1 APPL TOPICAL (20:32)
[2022-04-26] MEDS: Omeprazole 20 MG CAPSULE.DR PO ×2 (08:35→16:35)
[2022-04-26] MEDS: Cyclobenzaprine HCl 5 MG TABLET PO ×3 (08:35→20:23)
[2022-04-26] MEDS: Hydrocortisone 1 % Ointment 28.35 GM TUBE 1 APPL TOPICAL ×2 (08:57→21:09)
[2022-04-26 09:29] VITALS: BP 96/58; PULSE 87; RESP 16; TEMP 36.8; O2SAT 97
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
[2022-04-26] MEDS: OLANZapine 7.5 MG TABLET PO (20:23)
[2022-04-26] MEDS: Mirtazapine 30 MG TABLET PO (20:23)
[2022-04-26] MEDS: hydrOXYzine HCL 50 MG TABLET PO (20:23)
[2022-04-26] MEDS: rOPINIRole HCL 0.25 MG TABLET PO (20:23)
[2022-04-26] MEDS: LORazepam 0.5 MG TABLET PO (20:24)
[2022-04-26 20:30] VITALS: PULSE 85; RESP 16; TEMP 36.4; O2SAT 96
[2022-04-27 09:00] VITALS: BP 124/63; PULSE 92; RESP 16; TEMP 36.6; O2SAT 98
[2022-04-27] MEDS: Cyclobenzaprine HCl 5 MG TABLET PO (09:08)
[2022-04-27] MEDS: Omeprazole 20 MG CAPSULE.DR PO (09:08)
[2022-04-27] MEDS: Hydrocortisone 1 % Ointment 28.35 GM TUBE 1 APPL TOPICAL (09:09)
--- NOTE | 2022-04-27 09:54 | PC.NURSE ---
Jg is alert, fully oriented, pleasant and cooperative with discharge process. He denies ideation, plan or intent to harm self or others. He denies physical complaint.
== END 2022-04-27 10:00 | disposition home or self-care (01) | DRG 885 ==
LOC: HO.ED 17:52 → HO.PADLT16 23:39
PROVIDERS: Admitting Provider Psychiatry & Neurology Psychiatry; Emergency Provider Emergency Medicine; PCP Internal Medicine; Visit Provider Psychiatry & Neurology Psychiatry
DX: F31.30 Bipolar disorder, current episode depressed, mild or moderate severity, unspecified (principal); R45.851 Suicidal ideations; F14.20 Cocaine dependence, uncomplicated; K21.9 Gastro-esophageal reflux disease without esophagitis; E78.2 Mixed hyperlipidemia; F17.210 Nicotine dependence, cigarettes, uncomplicated; Z71.6 Tobacco abuse counseling; Z20.822 Contact with and (suspected) exposure to COVID-19; Z59.02 Unsheltered homelessness; Z91.040 Latex allergy status; Z88.5 Allergy status to narcotic agent; Z88.6 Allergy status to analgesic agent; Z79.899 Other long term (current) drug therapy
CPT/HCPCS: 0241U; 80053; 80307; 82077; 85025; 93005; 99285; S9485

== ENCOUNTER 2022-05-19 15:44 | Inpatient (IN) | payer OTHER, SELFPAY ==
[2022-05-19 15:50] VITALS: BP 142/81; PULSE 90; RESP 18; TEMP 36.6; O2SAT 99; BMI 36.4
--- NOTE | 2022-05-19 15:50 | ED_ITS ---
HPI - Psych General Chief Complaint: Psychiatric Symptoms <Laxmi Jauregui NP - Last Filed: 05/19/22 15:53> Stated Complaint: crisis, hearing voices, wants to harm himself/fam <Laxmi Jauregui NP - Last Filed: 05/19/22 15:53> Time Seen by Provider: 05/19/22 15:58 <Laxmi Jauregui NP - Last Filed: 05/19/22 15:53> Source: patient <SHERRY Ohara Last Filed: 05/20/22 02:04> Mode of arrival: ambulatory <Brittany Kelly NP - Last Filed: 05/20/22 02:04> Limitations: no limitations <Brittany Kelly NP - Last Filed: 05/20/22 02:04> History of Present Illness HPI Narrative: A 56-year-old male presents with suicidal ideation, states that he was on a bridge ready to jump when a bystander stopped him and convinced him to come to the emergency department. He states that he is hearing voices, has significant stress in his life, feels lonely, and has a substance abuse problem. <Brittany Kelly NP - Last Filed: 05/20/22 02:04> MD complaint: suicidal ideation, feels depressed, anxiety and substance abuse <Brittany Kelly NP - Last Filed: 05/20/22 02:04> Onset (ago): month(s) <SHERRY Ohara Last Filed: 05/20/22 02:04> Duration: getting worse <Brittany Kelly NP - Last Filed: 05/20/22 02:04> History of same: Yes <SHERRY Ohara Last Filed: 05/20/22 02:04> Relieving factors: none <SHERRY Ohara Last Filed: 05/20/22 02:04> Exacerbating factors: drug use <Brittany Kelly NP - Last Filed: 05/20/22 02:04> Context: recent drug abuse and significant life stressor <SHERRY Ohara Last Filed: 05/20/22 02:04> Associated psychiatric symptoms: depression, suicidal ideation and racing thoughts <Brittany Kelly NP - Last Filed: 05/20/22 02:04> Associated symptoms: denies other symptoms <Brittany Kelly NP - Last Filed: 05/20/22 02:04> If self harm: admits thoughts of self harm and has plan <Brittany Kelly NP - Last Filed: 05/20/22 02:04> Related Data Home Medications: Previous Rx's Medication Instructions Recorded cyclobenzaprine 5 mg tablet 5 mg PO TID 30 days #90 tabs 04/26/22 hydrocortisone 1 % topical ointment 1 appl topical BID 30 days #10 04/26/22 grams hydroxyzine HCl 50 mg tablet 50 mg PO DAILY PRN Anxiety 30 days 04/26/22 #30 tabs mirtazapine 30 mg tablet 30 mg PO BEDTIME 30 days #30 tabs 04/26/22 olanzapine 5 mg tablet 5 mg PO DAILY PRN agitation 30 04/26/22 days #30 tabs olanzapine 7.5 mg tablet 7.5 mg PO BEDTIME 30 days #30 tabs 04/26/22 omeprazole 20 mg capsule,delayed 20 mg PO BID@0630,1630 30 days #60 04/26/22 release caps ropinirole 0.25 mg tablet 0.25 mg PO BEDTIME 30 days #30 tabs 04/26/22 clonazepam 1 mg tablet 1 mg PO DAILY PRN anxiety 30 days 05/06/22 #30 tabs <Laxmi Jauregui NP - Last Filed: 05/19/22 15:53> Allergies/Adverse Reactions: Allergies Allergy/AdvReac Type Severity Reaction Status Date / Time codeine [CODEINE] Allergy Intermediate RASH, Verified 05/19/22 15:53 shortness of breath ibuprofen [IBUPROFEN] Allergy Intermediate RASH/HIVES, Verified 05/19/22 15:53 redness and itching latex Allergy Intermediate Redness of Verified 05/19/22 15:53 Skin, Itching <Laxmi Jauregui NP - Last Filed: 05/19/22 15:53> Review of Systems Review of Systems: Constitutional: No Fever, No Chills Cardiovascular: No Chest Pain, No SOB Respiratory: No Cough, No Sputum, No Dyspnea Gastrointestinal: No Nausea, No Vomiting, No Diarrhea Genitourinary: No Dysuria, No Urinary Frequency, No Hematuria Musculoskeletal: No Myalgias Skin: No Skin Lesions, No rash Neuro: No Weakness, No Numbness, No Paresthesias, No Dizziness, No Headache Psych: positive Anxiety, positive Depression, positive SI, positive substance abuse <Brittany Kelly NP - Last Filed: 05/20/22 02:04> Yes all other systems are reviewed and are negative <Brittany Kelly NP - Last Filed: 05/20/22 02:04> [facility] Past Medical History Attestation statement: The following information was validated with the patient. <Brittany Kelly NP - Last Filed: 05/20/22 02:04> Source: old records reviewed <Brittany Kelly NP - Last Filed: 05/20/22 02:04> Medical History: Medical History Anxiety Anxiety and depression Bipolar disorder Cataracts, bilateral Cervical disc disease Cervical pain Chronic low back pain Early satiety Elevation of adrenocorticotropic hormone (ACTH) Epigastric pain Erectile dysfunction Genital herpes GERD (gastroesophageal reflux disease) Knee pain, right Mixed hyperlipidemia Obesity (BMI 30-39.9) Overweight (BMI 25.0-29.9) Polyarthralgia Smoker Superficial gastritis without hemorrhage Weight loss, non-intentional <Laxmi Jauregui NP - Last Filed: 05/19/22 15:53> Surgical History: Surgical History H/O eye surgery History of esophagogastroduodenoscopy (EGD) History of inguinal hernia repair Hx of colonoscopy <Laxmi Jauregui NP - Last Filed: 05/19/22 15:53> Family History Family History: Family History Father Medical history unknown Mother Chronic mental illness Schizophrenia Diabetes Kidney problem Dialysis patient HTN (hypertension) Family/Other FH: mental illness Maternal Grandfather Prostate cancer Paternal Grandfather Lung cancer <Laxmi Jauregui NP - Last Filed: 05/19/22 15:53> Social History Social History: Social History Household Members: None Household Members Other:: Pt reports daughter(Sabrina) and his grandson Housing: Other Housing Other:: hotel Are you a primary congregational care pastor to a significant other at home: No Do you presently have visiting nurse or other home services: No Alcohol intake: never Patient Tobacco Use Status: Tobacco use Unknown Tobacco use type: Cigarette Cigarettes Per Day: 4 Years Smoked: 40 Second Hand Smoke Exposure: No Substance Use Type: Crack/Cocaine Advance Directives: No Advance Directives Information Provided: No Healthcare Proxy: No Guardian: No service: No Current occupational status: disabled Sexual orientation: Straight/Heterosexual <Laxmi Jauregui NP - Last Filed: 05/19/22 15:53> Physical Exam Vital Signs: Vital Signs: Last Vital Signs Temp 97.6 F 05/20/22 00:04 Pulse 74 05/20/22 00:04 Resp 18 05/20/22 00:04 BP 127/63 05/20/22 00:04 Pulse Ox 95 05/20/22 00:04 O2 Del Method 05/20/22 00:04 BMI result Body Mass Index 36.4 <Laxmi Jauregui NP - Last Filed: 05/19/22 15:53> Vital Signs: Last Vital Signs Temp 97.6 F 05/20/22 00:04 Pulse 74 05/20/22 00:04 Resp 18 05/20/22 00:04 BP 127/63 05/20/22 00:04 Pulse Ox 95 05/20/22 00:04 O2 Del Method 05/20/22 00:04 BMI result Body Mass Index 36.4 <Brittany Kelly NP - Last Filed: 05/20/22 02:04> Appearance: Alert. Oriented X3. Moderate emotional distress. Eyes: Pupils equal, round and reactive to light. ENT: Pharynx normal. Neck: Normal inspection. Neck supple. CVS: Normal heart rate and rhythm. Pulses normal. Respiratory: No respiratory distress. Breath sounds normal. Abdomen: Soft and nontender. Obese. Skin: Skin warm and dry. Normal skin color. Normal skin turgor. Extremities: Gait well balanced well coordinated. Neuro: No motor deficit. No sensory deficit. Cranial nerves 2-12 intact. <Brittany Kelly NP - Last Filed: 02/09/23 02:04> Course Course Course Narrative: This is a rapid medical exam. deferred additional HPI, ROS, PE to primary provider. 56 yo male with history of depression, bipolar, schizophrenia, recent changes in medications per patient here with SI/HI towards himself and family. +Smokes cocaine. No alcohol use or additional substance use. No physical complaints. To go direct to pod. VSS <Laxmi Jauregui NP - Last Filed: 05/19/22 15:53> This is a rapid medical exam. deferred additional HPI, ROS, PE to primary provider. 56 yo male with history of depression, bipolar, schizophrenia, recent changes in medications per patient here with SI/HI towards himself and family. +Smokes cocaine. No alcohol use or additional substance use. No physical complaints. To go direct to pod. VSS 56-year-old male presents for crisis evaluation. Has a history of bipolar 1, schizophrenia, depression, reports cocaine abuse. Has had multiple psychiatric admissions to this facility. Patient is polite, calm cooperative, tearful during exam. States that he was on a bridge, ready to jump when a bystander convinced him to present to the emergency department for help. He does not report any medical complaints, last cocaine abuse 2 or 3 days ago, states that he took all of his medications as directed. Plan of care is for crisis evaluation, labs, and safety checks Plan of care is for admission to . <Brittany Kelly NP - Last Filed: 05/20/22 02:04> Medications Administered Generic Name Dose Route Start Last Admin Trade Name Freq PRN Reason Stop Dose Admin Hydroxyzine HCl 25 mg 05/19/22 23:14 05/19/22 23:57 Hydroxyzine Hcl 25 Mg Tablet PO 25 mg Q6H PRN Administration Anxiety Trazodone HCl 50 mg 05/19/22 23:14 05/19/22 23:57 Trazodone Hcl 50 Mg Tablet PO 50 mg BEDTIME PRN Administration Insomnia Discontinued Medications Generic Name Dose Route Start Last Admin Trade Name Freq PRN Reason Stop Dose Admin Olanzapine 5 mg 05/19/22 18:54 05/19/22 19:01 Olanzapine 5 Mg Tablet PO 05/19/22 18:55 5 mg ONCE ONE Administration <Laxmi Jauregui NP - Last Filed: 05/19/22 15:53> Medications Administered Generic Name Dose Route Start Last Admin Trade Name Freq PRN Reason Stop Dose Admin Hydroxyzine HCl 25 mg 05/19/22 23:14 05/19/22 23:57 Hydroxyzine Hcl 25 Mg Tablet PO 25 mg Q6H PRN Administration Anxiety Trazodone HCl 50 mg 05/19/22 23:14 05/19/22 23:57 Trazodone Hcl 50 Mg Tablet PO 50 mg BEDTIME PRN Administration Insomnia Discontinued Medications Generic Name Dose Route Start Last Admin Trade Name Freq PRN Reason Stop Dose Admin Olanzapine 5 mg 05/19/22 18:54 05/19/22 19:01 Olanzapine 5 Mg Tablet PO 05/19/22 18:55 5 mg ONCE ONE Administration <Brittany Kelly NP - Last Filed: 05/20/22 02:04> Medical Decision Making Differential Diagnosis Differential Diagnoses: The differential diagnosis associated with the presentation includes <Brittany Kelly NP - Last Filed: 05/20/22 02:04> Suicidal ideation, psychosis <Brittany Kelly NP - Last Filed: 05/20/22 02:04> Admission/Observation Consideration of admission/observation: Escalation of care including admission/observation considered <Brittany Kelly NP - Last Filed: 05/20/22 02:04> Psychiatric admission strongly recommended <Brittany Kelly NP - Last Filed: 05/20/22 02:04> Consult Healthcare Provider Management of the patient was discussed with: Behavioral Health Provider <Brittany Kelly NP - Last Filed: 05/20/22 02:04> Lab Data MDM Lab Attestation statement: I reviewed the patient's lab results. <Brittany Kelly NP - Last Filed: 05/20/22 02:04> Result Diagrams: 05/19/22 16:43 05/19/22 16:43 <Laxmi Jauregui NP - Last Filed: 05/19/22 15:53> Labs: Lab Results 05/19/22 05/19/22 05/19/22 Range/Units 16:16 16:16 16:43 WBC 10.9 H (4.8-10.8) X10*3/uL RBC 5.23 (4.60-5.80) X10*6/uL Hgb 15.9 (14.0-18.0) g/dl Hct 47.3 (42.0-52.0) % MCV 90.4 (80.0-98.0) fL MCH 30.4 (27.0-33.0) pg MCHC 33.6 (31.0-36.0) g/dl RDW 13.1 (11.0-16.0) % Plt Count 267 D (160-400) X10*3/uL MPV 8.8 L (9.4-12.4) fL Immature Gran % (Auto) 0.3 (0.0-0.4) % Neut % (Auto) 69.8 (45-73) % Lymph % (Auto) 17.9 L (20-40) % [place] % (Auto) 8.9 (2-11) % Eos % (Auto) 2.5 (0-4) % Baso % (Auto) 0.6 (0-2) % Lymph # (Auto) 2.0 (1.2-4.9) X10*3/uL [place] # (Auto) 1.0 (0.1-1.2) X10*3/uL Eos # (Auto) 0.3 (0.0-0.4) X10*3/uL Baso # (Auto) 0.1 (0.0-0.2) X10*3/uL Abs Immat Gran (auto) 0.03 (0.00-0.03) X10*3/uL Absolute Neuts (auto) 7.6 (2.0-8.3) x10*3/uL Absolute Nucleated RBC 0.000 (0.0-0.012) X10*3/uL Nucleated RBC % (auto) 0.0 (0.0-0.2) /100WBC Sodium (135-145) mmol/L Potassium (3.3-5.1) mmol/L Chloride (96-108) mmol/L Carbon Dioxide (22-29) mmol/L Anion Gap (12-20) BUN (9-16) mg/dL Creatinine (0.5-1.4) mg/dL Estim Creat Clear Calc Estimated GFR Random Glucose (60-115) mg/dL Calcium (8.4-10.2) mg/dL Total Bilirubin (0.0-1.0) mg/dL Direct Bilirubin (0.0-0.5) mg/dL AST (5-37) U/L ALT (0-40) U/L Alkaline Phosphatase (39-117) U/L Total Protein (6.5-8.0) g/dL Albumin (3.5-5.0) g/dL Salicylates (15-30) mg/dL Urine Opiates Screen Not Detected (Not Detect) Urine Fentanyl Screen POSITIVE H (Not Detect) Acetaminophen (<30) mcg/mL Ur Barbiturates Screen Not Detected (Not Detect) Ur Phencyclidine Scrn Not Detected (Not Detect) Ur Amphetamines Screen Not Detected (Not Detect) U Benzodiazepines Scrn Not Detected (Not Detect) Urine Cocaine Screen POSITIVE H (Not Detect) U Marijuana (THC) Screen Not Detected (Not Detect) COVID-19 ([facility]) Negative (Negative) COVID-19 Clin Com See Note 05/19/22 Range/Units 16:43 WBC (4.8-10.8) X10*3/uL RBC (4.60-5.80) X10*6/uL Hgb (14.0-18.0) g/dl Hct (42.0-52.0) % MCV (80.0-98.0) fL MCH (27.0-33.0) pg MCHC (31.0-36.0) g/dl RDW (11.0-16.0) % Plt Count (160-400) X10*3/uL MPV (9.4-12.4) fL Immature Gran % (Auto) (0.0-0.4) % Neut % (Auto) (45-73) % Lymph % (Auto) (20-40) % [place] % (Auto) (2-11) % Eos % (Auto) (0-4) % Baso % (Auto) (0-2) % Lymph # (Auto) (1.2-4.9) X10*3/uL [place] # (Auto) (0.1-1.2) X10*3/uL Eos # (Auto) (0.0-0.4) X10*3/uL Baso # (Auto) (0.0-0.2) X10*3/uL Abs Immat Gran (auto) (0.00-0.03) X10*3/uL Absolute Neuts (auto) (2.0-8.3) x10*3/uL Absolute Nucleated RBC (0.0-0.012) X10*3/uL Nucleated RBC % (auto) (0.0-0.2) /100WBC Sodium 142 (135-145) mmol/L Potassium 4.0 (3.3-5.1) mmol/L Chloride 109 H (96-108) mmol/L Carbon Dioxide 23 (22-29) mmol/L Anion Gap 14 (12-20) BUN 15 (9-16) mg/dL Creatinine 1.21 (0.5-1.4) mg/dL Estim Creat Clear Calc 78.2 Estimated GFR > 60 Random Glucose 156 H (60-115) mg/dL Calcium 9.1 (8.4-10.2) mg/dL Total Bilirubin 0.7 (0.0-1.0) mg/dL Direct Bilirubin 0.2 (0.0-0.5) mg/dL AST 21 (5-37) U/L ALT 16 (0-40) U/L Alkaline Phosphatase 76 (39-117) U/L Total Protein 6.4 L (6.5-8.0) g/dL Albumin 3.9 (3.5-5.0) g/dL Salicylates < 5.0 L (15-30) mg/dL Urine Opiates Screen (Not Detect) Urine Fentanyl Screen (Not Detect) Acetaminophen < 17 (<30) mcg/mL Ur Barbiturates Screen (Not Detect) Ur Phencyclidine Scrn (Not Detect) Ur Amphetamines Screen (Not Detect) U Benzodiazepines Scrn (Not Detect) Urine Cocaine Screen (Not Detect) U Marijuana (THC) Screen (Not Detect) COVID-19 ([facility]) (Negative) COVID-19 Clin Com <Laxmi Jauregui NP - Last Filed: 05/19/22 15:53> Lab Results 05/19/22 05/19/22 05/19/22 Range/Units 16:16 16:16 16:43 WBC 10.9 H (4.8-10.8) X10*3/uL RBC 5.23 (4.60-5.80) X10*6/uL Hgb 15.9 (14.0-18.0) g/dl Hct 47.3 (42.0-52.0) % MCV 90.4 (80.0-98.0) fL MCH 30.4 (27.0-33.0) pg MCHC 33.6 (31.0-36.0) g/dl RDW 13.1 (11.0-16.0) % Plt Count 267 D (160-400) X10*3/uL MPV 8.8 L (9.4-12.4) fL Immature Gran % (Auto) 0.3 (0.0-0.4) % Neut % (Auto) 69.8 (45-73) % Lymph % (Auto) 17.9 L (20-40) % [place] % (Auto) 8.9 (2-11) % Eos % (Auto) 2.5 (0-4) % Baso % (Auto) 0.6 (0-2) % Lymph # (Auto) 2.0 (1.2-4.9) X10*3/uL [place] # (Auto) 1.0 (0.1-1.2) X10*3/uL Eos # (Auto) 0.3 (0.0-0.4) X10*3/uL Baso # (Auto) 0.1 (0.0-0.2) X10*3/uL Abs Immat Gran (auto) 0.03 (0.00-0.03) X10*3/uL Absolute Neuts (auto) 7.6 (2.0-8.3) x10*3/uL Absolute Nucleated RBC 0.000 (0.0-0.012) X10*3/uL Nucleated RBC % (auto) 0.0 (0.0-0.2) /100WBC Sodium (135-145) mmol/L Potassium (3.3-5.1) mmol/L Chloride (96-108) mmol/L Carbon Dioxide (22-29) mmol/L Anion Gap (12-20) BUN (9-16) mg/dL Creatinine (0.5-1.4) mg/dL Estim Creat Clear Calc Estimated GFR Random Glucose (60-115) mg/dL Calcium (8.4-10.2) mg/dL Total Bilirubin (0.0-1.0) mg/dL Direct Bilirubin (0.0-0.5) mg/dL AST (5-37) U/L ALT (0-40) U/L Alkaline Phosphatase (39-117) U/L Total Protein (6.5-8.0) g/dL Albumin (3.5-5.0) g/dL Salicylates (15-30) mg/dL Urine Opiates Screen Not Detected (Not Detect) Urine Fentanyl Screen POSITIVE H (Not Detect) Acetaminophen (<30) mcg/mL Ur Barbiturates Screen Not Detected (Not Detect) Ur Phencyclidine Scrn Not Detected (Not Detect) Ur Amphetamines Screen Not Detected (Not Detect) U Benzodiazepines Scrn Not Detected (Not Detect) Urine Cocaine Screen POSITIVE H (Not Detect) U Marijuana (THC) Screen Not Detected (Not Detect) COVID-19 ([facility]) Negative (Negative) COVID-19 Clin Com See Note 05/19/22 Range/Units 16:43 WBC (4.8-10.8) X10*3/uL RBC (4.60-5.80) X10*6/uL Hgb (14.0-18.0) g/dl Hct (42.0-52.0) % MCV (80.0-98.0) fL MCH (27.0-33.0) pg MCHC (31.0-36.0) g/dl RDW (11.0-16.0) % Plt Count (160-400) X10*3/uL MPV (9.4-12.4) fL Immature Gran % (Auto) (0.0-0.4) % Neut % (Auto) (45-73) % Lymph % (Auto) (20-40) % [place] % (Auto) (2-11) % Eos % (Auto) (0-4) % Baso % (Auto) (0-2) % Lymph # (Auto) (1.2-4.9) X10*3/uL [place] # (Auto) (0.1-1.2) X10*3/uL Eos # (Auto) (0.0-0.4) X10*3/uL Baso # (Auto) (0.0-0.2) X10*3/uL Abs Immat Gran (auto) (0.00-0.03) X10*3/uL Absolute Neuts (auto) (2.0-8.3) x10*3/uL Absolute Nucleated RBC (0.0-0.012) X10*3/uL Nucleated RBC % (auto) (0.0-0.2) /100WBC Sodium 142 (135-145) mmol/L Potassium 4.0 (3.3-5.1) mmol/L Chloride 109 H (96-108) mmol/L Carbon Dioxide 23 (22-29) mmol/L Anion Gap 14 (12-20) BUN 15 (9-16) mg/dL Creatinine 1.21 (0.5-1.4) mg/dL Estim Creat Clear Calc 78.2 Estimated GFR > 60 Random Glucose 156 H (60-115) mg/dL Calcium 9.1 (8.4-10.2) mg/dL Total Bilirubin 0.7 (0.0-1.0) mg/dL Direct Bilirubin 0.2 (0.0-0.5) mg/dL AST 21 (5-37) U/L ALT 16 (0-40) U/L Alkaline Phosphatase 76 (39-117) U/L Total Protein 6.4 L (6.5-8.0) g/dL Albumin 3.9 (3.5-5.0) g/dL Salicylates < 5.0 L (15-30) mg/dL Urine Opiates Screen (Not Detect) Urine Fentanyl Screen (Not Detect) Acetaminophen < 17 (<30) mcg/mL Ur Barbiturates Screen (Not Detect) Ur Phencyclidine Scrn (Not Detect) Ur Amphetamines Screen (Not Detect) U Benzodiazepines Scrn (Not Detect) Urine Cocaine Screen (Not Detect) U Marijuana (THC) Screen (Not Detect) COVID-19 ([facility]) (Negative) COVID-19 Clin Com <Brittany Kelly NP - Last Filed: 05/20/22 02:04> Independent Interpretation I performed an independent interpretation of an: EKG <Brittany Kelly NP - Last Filed: 05/20/22 02:04> Radiology Impression Discussion of test interpretation with radiology: I have reviewed the radiologist's reading. <Brittany Kelly NP - Last Filed: 05/20/22 02:04> External Record Review External record reviewed: Inpatient record, Outpatient record and Prior outpatient labs <Brittany Kelly NP - Last Filed: 05/20/22 02:04> Social Determinants Patient?s care significantly limited by Social Determinants of Health including: Other Social Determinant of Health <Brittany Kelly NP - Last Filed: 05/20/22 02:04> Discharge Plan Discharge Clinical Impression: MDD (major depressive disorder) <Laxmi Jauregui NP - Last Filed: 05/19/22 15:53> Patient Disposition: Admitted As Inpatient <Laxmi Jauregui NP - Last Filed: 05/19/22 15:53> Interventions: [place]-Suicide Risk Severity Scale Last Done: 05/19/22 17:42 Admission Worksheet (ED) Last Done: 05/20/22 00:08 <Laxmi Jauregui NP - Last Filed: 05/19/22 15:53> Discharge Date/Time: 05/20/22 00:08 <Laxmi Jauregui NP - Last Filed: 05/19/22 15:53>
--- NOTE | 2022-05-19 16:07 | ECG_ITS ---
Test Reason : clearance Blood Pressure : / mmHG Vent. Rate : 067 BPM Atrial Rate : 067 BPM P-R Int : 120 ms QRS Dur : 084 ms QT Int : 386 ms P-R-T Axes : 031 057 055 degrees QTc Int : 407 ms Normal sinus rhythm Normal ECG When compared with ECG of 16-APR-2022 20:13, No significant change was found Referred By: Brittany Kelly Electronically Signed By:ROXANNA ROMO MD
[2022-05-19 16:40] LABS: COVID-19 Test Negative (Negative); IDNOW Serial# 16C4AD1C
[2022-05-19 16:48] LABS: MANUAL DIFF FLAG NO
[2022-05-19 16:50] LABS: Basophils Absolute Auto 0.1 X10*3/uL (0.0-0.2); Basophils Percent Auto 0.6 % (0-2); Eosinophils Absolute Auto 0.3 X10*3/uL (0.0-0.4); Eosinophils Percent Auto 2.5 % (0-4); Hematocrit 47.3 % (42.0-52.0); Hemoglobin 15.9 g/dl (14.0-18.0); Imm Gran Abs Auto 0.03 X10*3/uL (0.00-0.03); Imm Gran Pct Auto 0.3 % (0.0-0.4); Lymphocytes Percent Auto 17.9 % (20-40); Mean Corpuscular HGB Conc 33.6 g/dl (31.0-36.0); Mean Corpuscular Hemoglobin 30.4 pg (27.0-33.0); Mean Corpuscular Volume 90.4 fL (80.0-98.0); Mean Platelet Volume 8.8 fL (9.4-12.4); Monocytes Percent Auto 8.9 % (2-11); Neutrophils Absolute Auto 7.6 x10*3/uL (2.0-8.3); Neutrophils Percent Auto 69.8 % (45-73); Platelet Count 267 X10*3/uL (160-400); Red Blood Count 5.23 X10*6/uL (4.60-5.80); Red Cell Distribution Width 13.1 % (11.0-16.0); White Blood Count 10.9 X10*3/uL (4.8-10.8)
[2022-05-19 17:12] LABS: Alanine Aminotransferase 16 U/L (0-40); Albumin Level 3.9 g/dL (3.5-5.0); Alkaline Phosphatase 76 U/L (39-117); Anion Gap 14 (12-20); Aspartate Amino Transferase 21 U/L (5-37); Bilirubin Direct 0.2 mg/dL (0.0-0.5); Bilirubin Total 0.7 mg/dL (0.0-1.0); Blood Urea Nitrogen 15 mg/dL (9-16); Calcium 9.1 mg/dL (8.4-10.2); Carbon Dioxide 23 mmol/L (22-29); Chloride 109 mmol/L (96-108); Creatinine Clr Calc Pharmacy 78.2; Estimated Glomerular Filt Rate > 60; Glucose Random 156 mg/dL (60-115); Salicylate < 5.0 mg/dL (15-30); Sodium 142 mmol/L (135-145); Total Protein 6.4 g/dL (6.5-8.0)
[2022-05-19 17:41] LABS: Acetaminophen LAB < 17 mcg/mL (<30)
[2022-05-19 18:13] LABS: Amphetamine Screen Urine Not Detected (Not Detect); Barbiturates, Urine Not Detected (Not Detect); Benzodiazepines Screen Urine Not Detected (Not Detect); Cannabinoid Screen Urine Not Detected (Not Detect); Cocaine Screen Urine POSITIVE (Not Detect); Fentanyl, urine POSITIVE (Not Detect); Opiate Screen Urine Not Detected (Not Detect); Phencyclidine Screen Urine Not Detected (Not Detect)
[2022-05-19] MEDS: OLANZapine 5 MG TABLET PO (19:01)
[2022-05-19 23:15] VITALS: BP 121/79; PULSE 71; RESP 17; TEMP 36.7; O2SAT 96
[2022-05-19] MEDS: hydrOXYzine HCL 25 MG TABLET PO (23:57)
[2022-05-19] MEDS: traZODone HCL 50 MG TABLET PO (23:57)
[2022-05-20 00:04] VITALS: BP 127/63; PULSE 74; RESP 18; TEMP 36.4; O2SAT 95
--- NOTE | 2022-05-20 05:24 | PC.ADMIT ---
Pt is a 56 year old male admitted to the unit after referral from the CARE team at [facility] ED. Arrived on the unit at 2345, legal status CV. Pt was recently discharged from in April 2022. Pt self-presented to the ED after being found at a bridge in [place], where he was reportedly having thoughts to jump until being stopped by a pedestrian. He reports the only precipitant to the increase in suicidal thoughts as being the inability to control the voices; he reports the voices tell him he is worthless and to kill himself, and visual hallucinations of people. Pt reports increase in hopelessness and helplessness. He reports being compliant with medication, but does not feel that they are working, and states that he has not slept in about 4 days. Pt has also been struggling with staying sober. CARBALLO + fentanyl and cocaine. Denies SI/HI.? Nurse to nurse completed prior to admission. Treatment plan initiated. Provider housing relocation notified of admission and orders obtained. Pt placed on 15 minute safety checks, contracts for safety on the unit.? Of note, pt requests that his ship officer at [facility] [address] be notified that he is currently in the hospital, as he was supposed to report to probation on 05/19.?
[2022-05-20 06:00] VITALS: BP 132/68; PULSE 94; RESP 16; TEMP 36.7; O2SAT 97
[2022-05-20 07:00] VITALS: BMI 33.9
[2022-05-20] MEDS: Omeprazole 20 MG CAPSULE.DR PO ×2 (08:46→16:58)
[2022-05-20] MEDS: Cyclobenzaprine HCl 5 MG TABLET PO ×3 (08:46→21:21)
[2022-05-20 09:23] LABS: Estimated Average Glucose 111 mg/dL; Hemoglobin A1c % 5.5 %
[2022-05-20 10:57] LABS: Alanine Aminotransferase 14 U/L (0-40); Albumin Level 3.5 g/dL (3.5-5.0); Alkaline Phosphatase 72 U/L (39-117); Anion Gap 13 (12-20); Aspartate Amino Transferase 20 U/L (5-37); Bilirubin Total 0.3 mg/dL (0.0-1.0); Blood Urea Nitrogen 16 mg/dL (9-16); Calcium 8.9 mg/dL (8.4-10.2); Carbon Dioxide 24 mmol/L (22-29); Chloride 107 mmol/L (96-108); Cholesterol 161 mg/dL; Estimated Glomerular Filt Rate > 60; Glucose Fasting 112 mg/dL (60-99); HDL Cholesterol 40 mg/dL; LDL Cholesterol Calculated 96 mg/dl; Potassium 4.1 mmol/L (3.3-5.1); Sodium 140 mmol/L (135-145); Total Protein 6.1 g/dL (6.5-8.0); Triglycerides 128 mg/dL
[2022-05-20 11:29] LABS: Thyroid Stimulating Hormone 0.77 uIU/mL (0.32-4.0); Vitamin B12 202 pg/mL (200-900)
[2022-05-20] MEDS: diazePAM 5 MG TABLET PO (12:32)
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
[2022-05-20 21:20] VITALS: BP 135/88; PULSE 91; RESP 18; TEMP 36.7; O2SAT 95
[2022-05-20] MEDS: Mirtazapine 30 MG TABLET PO (21:20)
[2022-05-20] MEDS: rOPINIRole HCL 0.25 MG TABLET PO (21:20)
[2022-05-20] MEDS: OLANZapine 7.5 MG TABLET PO (21:21)
[2022-05-20] MEDS: traZODone HCL 50 MG TABLET PO (21:21)
[2022-05-20] MEDS: hydrOXYzine HCL 25 MG TABLET PO (21:21)
[2022-05-21] MEDS: traZODone HCL 50 MG TABLET PO ×2 (00:06→20:31)
[2022-05-21 09:10] VITALS: BP 107/70; PULSE 83; RESP 18; TEMP 36.6; O2SAT 97
[2022-05-21] MEDS: Omeprazole 20 MG CAPSULE.DR PO ×2 (09:21→17:29)
[2022-05-21] MEDS: Cyclobenzaprine HCl 5 MG TABLET PO ×3 (09:21→20:32)
[2022-05-21 10:55] VITALS: BP 133/72; PULSE 100; RESP 18; O2SAT 97
[2022-05-21] MEDS: Propranolol HCL 20 MG TABLET PO ×3 (11:00→20:32)
[2022-05-21] MEDS: LORazepam 1 MG TABLET 2 MG PO (11:00)
--- NOTE | 2022-05-21 12:28 | HO.PSYCHPN ---
Subjective Subjective Date of Service: 05/21/22 Reason For Visit: SI Subjective Notes: Conditional Voluntary Interim History: Pt met with pt and ADAM Portillo. Pt presents a very future oriented in that he reports he hopes to be on the unit for 3 weeks and then move to his daughter's house. However, when discussing early discharge, pt reports conditional suicidality. We discussed up coming legal charges and probation and how this may play into timing. Pt more forthcoming in that he presents with more positive outlook, not as hopeless. No signs of pt responding to internal stimuli. Pt presents tapping feet, some mild chorea involuntary movement seen with cocaine use. Pt in agreement to try propanolol. Review of Systems Review of Systems Constitutional: No Fever, No Chills Cardiovascular: No Chest Pain, No SOB Respiratory: No Cough, No Sputum, No Dyspnea Gastrointestinal: No Nausea, No Vomiting, No Diarrhea Genitourinary: No Dysuria, No Urinary Frequency, No Hematuria Musculoskeletal: No Myalgias Skin: No Skin Lesions, No rash Neuro: No Weakness, No Numbness, No Paresthesias, No Dizziness, No Headache Psych: positive Anxiety, positive Depression, positive SI, positive substance abuse Yes all other systems are reviewed and are negative Mental Status Exam Mental Status Exam Narrative: Appearance: wearing hospital gown Behavior: no PMA/PMR Speech: clear, regular rate/rhythm/volume, spontaneous TP: linear and logical TC: no delusions or paranoia expressed Mood: depressed Affect: constricted, normo-intense, min-labile/irritable SI: suicidality conditional to timing of discharge in 3 weeks, however, pt presents as very future oriented hoping go to daughter's house. HI: none AH/VH:none Delusions: no overt delusions noted or reported. Insight/judgment: poor x 2. Memory/cog: alert, oriented x 3. not formally tested. Diagnostics Vital Signs (24Hr): Vital Signs - 24 hr 05/21/22 09:10 05/21/22 10:55 05/21/22 14:35 Temperature 97.8 F Pulse Rate 83 100 72 Respiratory Rate 18 18 18 Blood Pressure 107/70 133/72 116/64 Pulse Oximetry 97 97 96 Oxygen Delivery Method Room Air Room Air Room Air 05/21/22 20:25 Temperature 97.9 F Pulse Rate 69 Respiratory Rate 16 Blood Pressure 122/57 L Pulse Oximetry 97 Oxygen Delivery Method Room Air BMI result Body Mass Index 33.9 Labs 05/19/22 16:43 05/20/22 08:31 Labs: Laboratory Results - last 48 hr 05/20/22 05/20/22 08:31 08:31 Sodium 140 Potassium 4.1 Chloride 107 Carbon Dioxide 24 Anion Gap 13 BUN 16 Creatinine 0.94 Estim Creat Clear Calc 97.0 Estimated GFR > 60 Fasting Glucose 112 H Estimat Average Glucose 111 Hemoglobin A1c % 5.5 Calcium 8.9 Total Bilirubin 0.3 AST 20 ALT 14 Alkaline Phosphatase 72 Total Protein 6.1 L Albumin 3.5 Triglycerides 128 Cholesterol 161 LDL Cholesterol, Calc 96 HDL Cholesterol 40 Vitamin B12 202 Folate 12.0 TSH 0.77 Medications Medications Current Medications Acetaminophen (Acetaminophen 325 Mg Tablet) 650 mg PO Q6H PRN PRN Reason: Headache/Pain Mild Scale (1-3) Last Admin: 05/21/22 20:33 Dose: 650 mg Al Hydroxide/Mg Hydroxide (Magnesium Hydrox/Alum Hydrox 30 Ml Oral.Susp) 30 ml PO Q6H PRN PRN Reason: Heartburn/Nausea Clonazepam (Clonazepam 1 Mg Tablet) 1 mg PO DAILY PRN PRN Reason: anxiety Last Admin: 05/21/22 20:32 Dose: 1 mg Cyclobenzaprine HCl (Cyclobenzaprine Hcl 5 Mg Tablet) 5 mg PO TID [facility] Last Admin: 05/22/22 08:29 Dose: 5 mg Hydroxyzine HCl (Hydroxyzine Hcl 25 Mg Tablet) 25 mg PO Q6H PRN PRN Reason: Anxiety Last Admin: 05/20/22 21:21 Dose: 25 mg Magnesium Hydroxide (Milk Of Magnesia 30 Ml Oral.Susp) 30 ml PO DAILY PRN PRN Reason: Constipation Mirtazapine (Mirtazapine 30 Mg Tablet) 30 mg PO BEDTIME [facility] Last Admin: 05/21/22 20:33 Dose: 30 mg Olanzapine (Olanzapine 7.5 Mg Tablet) 7.5 mg PO BEDTIME [facility] Last Admin: 05/21/22 20:32 Dose: 7.5 mg Omeprazole (Omeprazole 20 Mg Capsule.Dr) 20 mg PO BID@0630,1630 [facility] Last Admin: 05/22/22 08:29 Dose: 20 mg Propranolol HCl (Propranolol Hcl 20 Mg Tablet) 20 mg PO TID [facility]; Protocol Last Admin: 05/22/22 08:29 Dose: 20 mg Ropinirole HCl (Ropinirole Hcl 0.25 Mg Tablet) 0.25 mg PO BEDTIME [facility] Last Admin: 05/21/22 20:31 Dose: 0.25 mg Trazodone HCl (Trazodone Hcl 50 Mg Tablet) 50 mg PO BEDTIME PRN PRN Reason: Insomnia Last Admin: 05/21/22 20:31 Dose: 50 mg Allergies Allergies Allergy/AdvReac Type Severity Reaction Status Date / Time codeine [CODEINE] Allergy Intermediate RASH, Verified 05/19/22 15:53 shortness of breath ibuprofen [IBUPROFEN] Allergy Intermediate RASH/HIVES, Verified 05/19/22 15:53 redness and itching latex Allergy Intermediate Redness of Verified 05/19/22 15:53 Skin, Itching Assessment & Plan Assessment & Plan (1) Cocaine use disorder, severe, dependence: Status: Acute Code(s): F14.20 - Cocaine dependence, uncomplicated (2) Depression, unspecified: Status: Acute Code(s): F32.A - Depression, unspecified Plan restart meds pt was discharged on from 04/26 (M3). keep safe, observe for stabilization. supportive care through cocaine detox, possibly some opioid detox as well. investigate ways to structure pt's days outside the hospital and to schedule meaningful activities. 05/21 continue tx. start propanolol for tapping feet, mild chorea movement suspect most likely related to cocaine use. Reason for contiued inpatient stay Substantial Risk for: harm to self Time Spent With Patient Time: Total time managing care of this patient today ____ minutes.
[2022-05-21 14:35] VITALS: BP 116/64; PULSE 72; RESP 18; O2SAT 96
[2022-05-21 20:25] VITALS: BP 122/57; PULSE 69; RESP 16; TEMP 36.6; O2SAT 97
[2022-05-21] MEDS: rOPINIRole HCL 0.25 MG TABLET PO (20:31)
[2022-05-21] MEDS: clonazePAM 1 MG TABLET PO (20:32)
[2022-05-21] MEDS: OLANZapine 7.5 MG TABLET PO (20:32)
[2022-05-21] MEDS: Mirtazapine 30 MG TABLET PO (20:33)
[2022-05-21] MEDS: Acetaminophen 325 MG TABLET 650 MG PO (20:33)
[2022-05-22] MEDS: Cyclobenzaprine HCl 5 MG TABLET PO ×3 (08:29→20:27)
[2022-05-22] MEDS: Propranolol HCL 20 MG TABLET PO ×3 (08:29→20:28)
[2022-05-22] MEDS: Omeprazole 20 MG CAPSULE.DR PO ×2 (08:29→16:59)
[2022-05-22 09:07] VITALS: BP 104/62; PULSE 72; RESP 18; TEMP 36.7; O2SAT 95
--- NOTE | 2022-05-22 13:03 | HO.PSYCHPN ---
Subjective Subjective Date of Service: 05/22/22 Reason For Visit: SI Interim History: Pt presents very anxious and having auditory hallucinations; reports feeling safe on unitl. Medication Compliance: Yes Side effects from medications: No Review of Systems Acute medical concerns: No Medical Review of Systems: unchanged Review of Systems Review of Systems Constitutional: No Fever, No Chills Cardiovascular: No Chest Pain, No SOB Respiratory: No Cough, No Sputum, No Dyspnea Gastrointestinal: No Nausea, No Vomiting, No Diarrhea Genitourinary: No Dysuria, No Urinary Frequency, No Hematuria Musculoskeletal: No Myalgias Skin: No Skin Lesions, No rash Neuro: No Weakness, No Numbness, No Paresthesias, No Dizziness, No Headache Psych: positive Anxiety, positive Depression, positive SI, positive substance abuse Yes all other systems are reviewed and are negative Mental Status Exam Mental Status Exam Narrative: Appearance: wearing hospital gown Behavior: no PMA/PMR Speech: clear, regular rate/rhythm/volume, spontaneous TP: linear and logical TC: no delusions or paranoia expressed Mood: depressed Affect: constricted, normo-intense, min-labile/irritable SI: suicidality conditional to timing of discharge in 3 weeks, however, pt presents as very future oriented hoping go to daughter's house. HI: none AH/VH:none Delusions: no overt delusions noted or reported. Insight/judgment: poor x 2. Memory/cog: alert, oriented x 3. not formally tested. Diagnostics Vital Signs (24Hr): Vital Signs - 24 hr 05/21/22 14:35 05/21/22 20:25 05/22/22 09:07 Temperature 97.9 F 98.1 F Pulse Rate 72 69 72 Respiratory Rate 18 16 18 Blood Pressure 116/64 122/57 L 104/62 Pulse Oximetry 96 97 95 Oxygen Delivery Method Room Air Room Air Room Air BMI result Body Mass Index 33.9 Labs 05/19/22 16:43 05/20/22 08:31 Medications Medications Current Medications Acetaminophen (Acetaminophen 325 Mg Tablet) 650 mg PO Q6H PRN PRN Reason: Headache/Pain Mild Scale (1-3) Last Admin: 05/21/22 20:33 Dose: 650 mg Al Hydroxide/Mg Hydroxide (Magnesium Hydrox/Alum Hydrox 30 Ml Oral.Susp) 30 ml PO Q6H PRN PRN Reason: Heartburn/Nausea Clonazepam (Clonazepam 1 Mg Tablet) 1 mg PO DAILY PRN PRN Reason: anxiety Last Admin: 05/21/22 20:32 Dose: 1 mg Cyclobenzaprine HCl (Cyclobenzaprine Hcl 5 Mg Tablet) 5 mg PO TID [facility] Last Admin: 05/22/22 08:29 Dose: 5 mg Hydroxyzine HCl (Hydroxyzine Hcl 25 Mg Tablet) 25 mg PO Q6H PRN PRN Reason: Anxiety Last Admin: 05/20/22 21:21 Dose: 25 mg Magnesium Hydroxide (Milk Of Magnesia 30 Ml Oral.Susp) 30 ml PO DAILY PRN PRN Reason: Constipation Mirtazapine (Mirtazapine 30 Mg Tablet) 30 mg PO BEDTIME [facility] Last Admin: 05/21/22 20:33 Dose: 30 mg Olanzapine (Olanzapine 7.5 Mg Tablet) 7.5 mg PO BEDTIME [facility] Last Admin: 05/21/22 20:32 Dose: 7.5 mg Omeprazole (Omeprazole 20 Mg Capsule.Dr) 20 mg PO BID@0630,1630 [facility] Last Admin: 05/22/22 08:29 Dose: 20 mg Propranolol HCl (Propranolol Hcl 20 Mg Tablet) 20 mg PO TID [facility]; Protocol Last Admin: 05/22/22 08:29 Dose: 20 mg Ropinirole HCl (Ropinirole Hcl 0.25 Mg Tablet) 0.25 mg PO BEDTIME [facility] Last Admin: 05/21/22 20:31 Dose: 0.25 mg Trazodone HCl (Trazodone Hcl 50 Mg Tablet) 50 mg PO BEDTIME PRN PRN Reason: Insomnia Last Admin: 05/21/22 20:31 Dose: 50 mg Allergies Allergies Allergy/AdvReac Type Severity Reaction Status Date / Time codeine [CODEINE] Allergy Intermediate RASH, Verified 05/19/22 15:53 shortness of breath ibuprofen [IBUPROFEN] Allergy Intermediate RASH/HIVES, Verified 05/19/22 15:53 redness and itching latex Allergy Intermediate Redness of Verified 05/19/22 15:53 Skin, Itching Assessment & Plan Assessment & Plan (1) Cocaine use disorder, severe, dependence: Status: Acute Code(s): F14.20 - Cocaine dependence, uncomplicated (2) Depression, unspecified: Status: Acute Code(s): F32.A - Depression, unspecified Plan restart meds pt was discharged on from 04/26 (M3). keep safe, observe for stabilization. supportive care through cocaine detox, possibly some opioid detox as well. investigate ways to structure pt's days outside the hospital and to schedule meaningful activities. 05/21 continue tx. start propanolol for tapping feet, mild chorea movement suspect most likely related to cocaine use. 05/22 continue treatment plan Patient educated on: medication risk/benefits and therapeutic strategies Reason for contiued inpatient stay Substantial Risk for: harm to self and inability to function Time Spent With Patient Time: Total time managing care of this patient today _25___ minutes.
[2022-05-22 20:21] VITALS: BP 114/57; PULSE 69; RESP 16; TEMP 36.5; O2SAT 96
[2022-05-22] MEDS: Acetaminophen 325 MG TABLET 650 MG PO (20:27)
[2022-05-22] MEDS: Mirtazapine 30 MG TABLET PO (20:27)
[2022-05-22] MEDS: rOPINIRole HCL 0.25 MG TABLET PO (20:27)
[2022-05-22] MEDS: traZODone HCL 50 MG TABLET PO (20:28)
[2022-05-22] MEDS: OLANZapine 7.5 MG TABLET PO (20:28)
[2022-05-22] MEDS: clonazePAM 1 MG TABLET PO (20:28)
[2022-05-23] MEDS: Omeprazole 20 MG CAPSULE.DR PO ×2 (08:22→16:35)
[2022-05-23] MEDS: Cyclobenzaprine HCl 5 MG TABLET PO ×3 (08:22→21:38)
[2022-05-23 08:53] VITALS: BP 105/56; PULSE 68; RESP 16; TEMP 36.2; O2SAT 97
--- NOTE | 2022-05-23 10:17 | P.PNPSI_ITS ---
Subjective Subjective Date of Service: 05/23/22 Reason For Visit: SI Subjective Notes: Conditional Voluntary Interim History: Pt says he is doing much better; he is anxious but less so; he is looking forward to going to [facility] in [place]; he says he is much less anxious; vcontinues with auditory hallucinations; reports feeling safe on unitl. Medication Compliance: Yes Side effects from medications: No Review of Systems Acute medical concerns: No Medical Review of Systems: unchanged Review of Systems Review of Systems Constitutional: No Fever, No Chills Cardiovascular: No Chest Pain, No SOB Respiratory: No Cough, No Sputum, No Dyspnea Gastrointestinal: No Nausea, No Vomiting, No Diarrhea Genitourinary: No Dysuria, No Urinary Frequency, No Hematuria Musculoskeletal: No Myalgias Skin: No Skin Lesions, No rash Neuro: No Weakness, No Numbness, No Paresthesias, No Dizziness, No Headache Psych: positive Anxiety, positive Depression, positive SI, positive substance abuse Yes all other systems are reviewed and are negative Mental Status Exam Mental Status Exam Narrative: Appearance: wearing hospital gown Behavior: no PMA/PMR Speech: clear, regular rate/rhythm/volume, spontaneous TP: linear and logical TC: no delusions or paranoia expressed Mood: depressed, anxious Affect: constricted, normo-intense, min-labile/irritable SI: suicidality conditional to timing of discharge in 3 weeks, however, pt presents as very future oriented hoping go to daughter's house. HI: none AH/VH:none Delusions: no overt delusions noted or reported. Insight/judgment: fair x 2. Memory/cog: alert, oriented x 3. not formally tested. Diagnostics Vital Signs (24Hr): Vital Signs - 24 hr 05/22/22 20:21 05/23/22 08:53 Temperature 97.7 F 97.2 F Pulse Rate 69 68 Respiratory Rate 16 16 Blood Pressure 114/57 L 105/56 L Pulse Oximetry 96 97 Oxygen Delivery Method Room Air Room Air BMI result Body Mass Index 33.9 Labs 05/19/22 16:43 05/20/22 08:31 Medications Medications Current Medications Acetaminophen (Acetaminophen 325 Mg Tablet) 650 mg PO Q6H PRN PRN Reason: Headache/Pain Mild Scale (1-3) Last Admin: 05/22/22 20:27 Dose: 650 mg Al Hydroxide/Mg Hydroxide (Magnesium Hydrox/Alum Hydrox 30 Ml Oral.Susp) 30 ml PO Q6H PRN PRN Reason: Heartburn/Nausea Clonazepam (Clonazepam 1 Mg Tablet) 1 mg PO DAILY PRN PRN Reason: anxiety Last Admin: 05/22/22 20:28 Dose: 1 mg Cyclobenzaprine HCl (Cyclobenzaprine Hcl 5 Mg Tablet) 5 mg PO TID [facility] Last Admin: 05/23/22 08:22 Dose: 5 mg Hydroxyzine HCl (Hydroxyzine Hcl 25 Mg Tablet) 25 mg PO Q6H PRN PRN Reason: Anxiety Last Admin: 05/20/22 21:21 Dose: 25 mg Magnesium Hydroxide (Milk Of Magnesia 30 Ml Oral.Susp) 30 ml PO DAILY PRN PRN Reason: Constipation Mirtazapine (Mirtazapine 30 Mg Tablet) 30 mg PO BEDTIME [facility] Last Admin: 05/22/22 20:27 Dose: 30 mg Nicotine Polacrilex (Nicotine Polacrilex 2 Mg Gum) 4 mg BUCCAL Q2H PRN PRN Reason: nicotine cravings Olanzapine (Olanzapine 7.5 Mg Tablet) 7.5 mg PO BEDTIME [facility] Last Admin: 05/22/22 20:28 Dose: 7.5 mg Omeprazole (Omeprazole 20 Mg Capsule.Dr) 20 mg PO BID@0630,1630 [facility] Last Admin: 05/23/22 08:22 Dose: 20 mg Propranolol HCl (Propranolol Hcl 20 Mg Tablet) 20 mg PO TID [facility]; Protocol Last Admin: 05/23/22 08:24 Dose: Not Given Ropinirole HCl (Ropinirole Hcl 0.25 Mg Tablet) 0.25 mg PO BEDTIME [facility] Last Admin: 05/22/22 20:27 Dose: 0.25 mg Trazodone HCl (Trazodone Hcl 50 Mg Tablet) 50 mg PO BEDTIME PRN PRN Reason: Insomnia Last Admin: 05/22/22 20:28 Dose: 50 mg Allergies Allergies Allergy/AdvReac Type Severity Reaction Status Date / Time codeine [CODEINE] Allergy Intermediate RASH, Verified 05/19/22 15:53 shortness of breath ibuprofen [IBUPROFEN] Allergy Intermediate RASH/HIVES, Verified 05/19/22 15:53 redness and itching latex Allergy Intermediate Redness of Verified 05/19/22 15:53 Skin, Itching Assessment & Plan Assessment & Plan (1) Cocaine use disorder, severe, dependence: Status: Acute Code(s): F14.20 - Cocaine dependence, uncomplicated (2) Depression, unspecified: Status: Acute Code(s): F32.A - Depression, unspecified Plan restart meds pt was discharged on from 04/26 (M3). keep safe, observe for stabilization. supportive care through cocaine detox, possibly some opioid detox as well. investigate ways to structure pt's days outside the hospital and to schedule meaningful activities. 05/21 continue tx. start propanolol for tapping feet, mild chorea movement suspect most likely related to cocaine use. 05/22 continue treatment plan 05/23 continue treatment plan Reason for contiued inpatient stay Substantial Risk for: harm to self, inability to function, rapid decompensation and med/psych decompensation Time Spent With Patient Time: Total time managing care of this patient today ____ minutes.
[2022-05-23] MEDS: Propranolol HCL 20 MG TABLET PO ×2 (15:03→21:39)
[2022-05-23 21:00] VITALS: BP 117/66; PULSE 88; RESP 16; TEMP 36.6; O2SAT 96
[2022-05-23] MEDS: rOPINIRole HCL 0.25 MG TABLET PO (21:38)
[2022-05-23] MEDS: OLANZapine 7.5 MG TABLET PO (21:39)
[2022-05-23] MEDS: Mirtazapine 30 MG TABLET PO (21:39)
[2022-05-23] MEDS: clonazePAM 1 MG TABLET PO (21:41)
[2022-05-23] MEDS: traZODone HCL 50 MG TABLET PO (21:41)
[2022-05-24 08:00] VITALS: BP 113/59; PULSE 71; TEMP 36.2; O2SAT 96
[2022-05-24] MEDS: Cyclobenzaprine HCl 5 MG TABLET PO (09:13)
[2022-05-24] MEDS: Propranolol HCL 20 MG TABLET PO (09:13)
[2022-05-24] MEDS: Omeprazole 20 MG CAPSULE.DR PO (09:13)
--- NOTE | 2022-05-24 09:56 | PM.PSYDC ---
DS: Providers Provider Date of Service: 05/24/22 Date of admission: 05/19/22 23:14 Primary care physician: Philippe Lal MD DS: Diagnosis Discharge Diagnosis (1) Cocaine use disorder, severe, dependence: Status: Acute (2) Depression, unspecified: Status: Acute DS: Medications Discharge Medications Home Medications: Previous Rx's Medication Instructions Recorded hydrocortisone 1 % topical ointment 1 appl topical BID 30 days #10 04/26/22 grams clonazepam 1 mg tablet 1 mg PO DAILY PRN anxiety 30 days 05/06/22 #30 tabs cyclobenzaprine 5 mg tablet 5 mg PO TID #90 tabs 05/24/22 mirtazapine 30 mg tablet 30 mg PO BEDTIME #30 tabs 05/24/22 olanzapine 7.5 mg tablet 7.5 mg PO BEDTIME #30 tabs 05/24/22 omeprazole 20 mg capsule,delayed 20 mg PO BID@0630,1630 #60 caps 05/24/22 release propranolol 20 mg tablet 20 mg PO TID #90 tabs 05/24/22 ropinirole 0.25 mg tablet 0.25 mg PO BEDTIME #30 tabs 05/24/22 trazodone 50 mg tablet 50 mg PO BEDTIME PRN Insomnia #30 05/24/22 tabs Mental Status Exam Mental Status Exam Narrative: Appearance: wearing hospital gown Behavior: no PMA/PMR Speech: clear, regular rate/rhythm/volume, spontaneous TP: linear and logical TC: no delusions or paranoia expressed Mood: depressed, anxious Affect: constricted, normo-intense, min-labile/irritable SI: suicidality conditional to timing of discharge in 3 weeks, however, pt presents as very future oriented hoping go to daughter's house. HI: none AH/VH:none Delusions: no overt delusions noted or reported. Insight/judgment: fair x 2. Memory/cog: alert, oriented x 3. not formally tested. Data Data Completed and Pending Completed studies during hospitalization [Text1]: 05/19/22 05/19/22 05/19/22 16:16 16:16 16:43 WBC 10.9 H RBC 5.23 Hgb 15.9 Hct 47.3 MCV 90.4 MCH 30.4 MCHC 33.6 RDW 13.1 Plt Count 267 D MPV 8.8 L Immature Gran % (Auto) 0.3 Neut % (Auto) 69.8 Lymph % (Auto) 17.9 L [place] % (Auto) 8.9 Eos % (Auto) 2.5 Baso % (Auto) 0.6 Lymph # (Auto) 2.0 [place] # (Auto) 1.0 Eos # (Auto) 0.3 Baso # (Auto) 0.1 Abs Immat Gran (auto) 0.03 Absolute Neuts (auto) 7.6 Absolute Nucleated RBC 0.000 Nucleated RBC % (auto) 0.0 Sodium Potassium Chloride Carbon Dioxide Anion Gap BUN Creatinine Estim Creat Clear Calc Estimated GFR Random Glucose Fasting Glucose Estimat Average Glucose Hemoglobin A1c % Calcium Total Bilirubin Direct Bilirubin AST ALT Alkaline Phosphatase Total Protein Albumin Triglycerides Cholesterol LDL Cholesterol, Calc HDL Cholesterol Vitamin B12 Folate TSH Salicylates Urine Opiates Screen Not Detected Urine Fentanyl Screen POSITIVE H Acetaminophen Ur Barbiturates Screen Not Detected Ur Phencyclidine Scrn Not Detected Ur Amphetamines Screen Not Detected U Benzodiazepines Scrn Not Detected Urine Cocaine Screen POSITIVE H U Marijuana (THC) Screen Not Detected COVID-19 ([facility]) Negative COVID-19 Clin Com See Note 05/19/22 05/20/22 05/20/22 16:43 08:31 08:31 WBC RBC Hgb Hct MCV MCH MCHC RDW Plt Count MPV Immature Gran % (Auto) Neut % (Auto) Lymph % (Auto) [place] % (Auto) Eos % (Auto) Baso % (Auto) Lymph # (Auto) [place] # (Auto) Eos # (Auto) Baso # (Auto) Abs Immat Gran (auto) Absolute Neuts (auto) Absolute Nucleated RBC Nucleated RBC % (auto) Sodium 142 140 Potassium 4.0 4.1 Chloride 109 H 107 Carbon Dioxide 23 24 Anion Gap 14 13 BUN 15 16 Creatinine 1.21 0.94 Estim Creat Clear Calc 78.2 97.0 Estimated GFR > 60 > 60 Random Glucose 156 H Fasting Glucose 112 H Estimat Average Glucose 111 Hemoglobin A1c % 5.5 Calcium 9.1 8.9 Total Bilirubin 0.7 0.3 Direct Bilirubin 0.2 AST 21 20 ALT 16 14 Alkaline Phosphatase 76 72 Total Protein 6.4 L 6.1 L Albumin 3.9 3.5 Triglycerides 128 Cholesterol 161 LDL Cholesterol, Calc 96 HDL Cholesterol 40 Vitamin B12 202 Folate 12.0 TSH 0.77 Salicylates < 5.0 L Urine Opiates Screen Urine Fentanyl Screen Acetaminophen < 17 Ur Barbiturates Screen Ur Phencyclidine Scrn Ur Amphetamines Screen U Benzodiazepines Scrn Urine Cocaine Screen U Marijuana (THC) Screen COVID-19 ([facility]) COVID-19 Clin Com DS: Summary Hospital Course Hospital Course: HPI: pt reports that after last admission he returned home and continued to take his medication.? he became lonely, feeling he has no friends and his family members have no interest in being in touch with him.? he quickly became depressed again and suicidal and relapsed to substance use in attempt to not feel those feelings.? the cocaine allowed him to feel good for a very brief period, but then he would feel worse.? he decided to return to the hospital to give medications another chance.? per CARE team carlos, pt self-presented to [facility] c/o SI with plan to jump off a bridge.? he reported having been at a bridge earlier in the day and having had a passerby prevent him from jumping. ? he denied any precipitant to this behavior aside from being unable to control the voices. ? on interview with , pt reported the voices had been telling him, kill yourself, it's better. ? CARE team also described him as being jittery and exhibiting symptoms of withdrawal. ? he endorsed VH of people, increased AH telling him he is worthless and needing to kill himself. ? he endorsed poor sleep and appetite, hopelessness.? he informed CARE team staff that if he were discharged he would kill himself.? once on the unit he was hypersomnolent and isolative.? he endorsed SI and CAH to kill himself.? his home regimen was restarted.? he presented as irritable, sensitive to the perception that his depression is secondary to cocaine use.? he had no other complaints or requests.? per collateral from [place], pt missed a court date yesterday and made a request that she call his PO to let the PO know where he is first thing in the morning. Past Psychiatric History: -Hx of IPLOC on M3 April of 2022, also 2018 at [facility] M5 due to SI, non-adherence on medication.? OP: none current HOSPITAL COURSE On the unit, pt was admitted on CV and placed on 15 minutes checks for safety. Pt reported he anticipated that he would not be suicidal in 3 weeks if he was able to stay on the unit and then step down to his daughter's house. Pt minimized substance use and did admit that on the he presented to the hospital he had a court appearance. He was supposed to provide urine drug test otherwise would be violating probation. Pt presented with disconnection between feeling severely depressed but at the same time knowing that his suicidality would be better in exactly 3 weeks while on the unit. He did not appear internally preoccupied. He was restarted on medication he had been on previous admission. He was noted to have akathisia most likely related to cocaine use with mild chorea movement. He was prescribed propanolol with good effect. He was able to identify his daughter as protector factor. We had lengthy discussion about continuing and following up with treatment outpatient as it will take time for him to feel as if his life more stable, in the sense that he continues to struggle with cocaine use, along with legal issues but at the same time with supportive daughter and pt clearly presents very future oriented and resourceful. Status at Discharge Cognitive/behavioral status at discharge: Pt with brighter affect, than reported mood. Suicidality only conditional to being able to stay on the unit for at least 3 weeks. He declined referrals to [facility]. No signs of psychosis or delusional content noted or reported. No signs of aggression towards self or others. Time Spent with Patient Time attestation: Total time managing care of this patient today __30__ minutes. Time spent: Greater than 30 minutes Discharge Plan Discharge Anticipated Discharge Date/Time: 05/24/22 09:38 Patient Disposition: Home, Self-Care Discharge Diagnosis: MDD, recurrent, moderate cocaine use disorder Referrals: Therapy & Psychiatry [Other] - 1 Week (Please follow up with [facility] regarding your appointments) Philippe Lal MD [Primary Care Provider] - 1 Week Discharge Medications: New trazodone 50 mg Tablet 50 mg PO BEDTIME PRN (Reason: Insomnia) Qty: 30 0RF olanzapine 7.5 mg Tablet 7.5 mg PO BEDTIME Qty: 30 0RF ropinirole 0.25 mg Tablet 0.25 mg PO BEDTIME Qty: 30 0RF mirtazapine 30 mg Tablet 30 mg PO BEDTIME Qty: 30 0RF propranolol 20 mg Tablet 20 mg PO TID Qty: 90 0RF Protocol: Hold for SBP/HR < HOLD for SBP < : 90 HOLD for HR < : 60 cyclobenzaprine 5 mg Tablet 5 mg PO TID Qty: 90 0RF Continued clonazepam 1 mg tablet 1 mg PO DAILY PRN (Reason: anxiety) 30 Days Qty: 30 0RF hydrocortisone 1 % Ointment 1 appl topical BID 30 Days Qty: 10 0RF Protocol: Apply to: Apply to: bilat hands Discontinued olanzapine 5 mg Tablet 5 mg PO DAILY PRN (Reason: agitation) 30 Days Qty: 30 0RF hydroxyzine HCl 50 mg Tablet 50 mg PO DAILY PRN (Reason: Anxiety) 30 Days Qty: 30 0RF olanzapine 7.5 mg Tablet 7.5 mg PO BEDTIME 30 Days Qty: 30 0RF ropinirole 0.25 mg Tablet 0.25 mg PO BEDTIME 30 Days Qty: 30 0RF mirtazapine 30 mg Tablet 30 mg PO BEDTIME 30 Days Qty: 30 0RF omeprazole 20 mg Capsule,Delayed Release(Dr/Ec) 20 mg PO BID@0630,1630 30 Days Qty: 60 0RF cyclobenzaprine 5 mg Tablet 5 mg PO TID 30 Days Qty: 90 0RF No Action omeprazole 20 mg capsule,delayed release(DR/EC) See Rx Instructions .ROUTE .COMPLEX Qty: 180 0RF Dose Instruction: TOME CHATA CAPSULA DOS VECES AL DEBORA Rx Instructions: TOME CHATA CAPSULA DOS VECES AL DEBORA Discharge Orders: Discharge Order (Routine); Ordered 05/24/22 Ordered By: Gertrude Morales Diet: Regular diet Activity on Discharge: As tolerated Stand Alone Forms: Patient Portal Discharge page, Community Support Care Plan Goals: 1. Maintain mood 2. No aggression towards self or others 3. No SI/HI Health Concerns: Follow up with PCP Plan of Treatment: 1. Take medications as prescribed 2. Go to nearest ED or call 911 in event of emergency Assessment: Pt with brighter affect, non labile. Appropriate disappointment related to loses he has had secondary to ongoing cocaine use. Conditional suicidality at times if wishes not honored, but these indicate that pt is able to make decisions and cognizant of consequences. Pt presents as very future oriented in that he states he wants to move in with his daughter and identifies her as protective services. Pt afraid and anxious about imminent consequences of ongoing legal chrages. Discharge Date/Time: 05/24/22 11:55
--- NOTE | 2022-05-24 11:59 | PC.NURSE ---
Patient resting in room, alert, oriented x3. Declined financial services counselor, assessed w/ social work present. Patient affect was brighter, but he reports continued SI, no plan, reports AH, no VH, no HI. Provider aware of patient report that he continues to experience AH/SI, may be discharged as ordered. Reviewed belongings, discharge instructions- no concerns reported, verbalized understanding of discharge instructions, reported belongings all accounted for. Patient declined transportation home, states his daughter will provide transportation if needed.
== END 2022-05-24 11:55 | disposition home or self-care (01) | DRG 885 ==
LOC: HO.ED 23:27 → HO.PADLT16 23:28
PROVIDERS: Nurse Practitioner Family; Admitting Provider Social Worker; Emergency Provider Emergency Medicine Emergency Medical Services; PCP Internal Medicine; Visit Provider Psychiatry & Neurology Psychiatry
DX: F33.1 Major depressive disorder, recurrent, moderate (principal); R45.851 Suicidal ideations; F14.20 Cocaine dependence, uncomplicated; E78.2 Mixed hyperlipidemia; Z20.822 Contact with and (suspected) exposure to COVID-19; Z59.01 Sheltered homelessness; Z91.040 Latex allergy status; Z88.5 Allergy status to narcotic agent; Z88.6 Allergy status to analgesic agent; Z79.899 Other long term (current) drug therapy
CPT/HCPCS: 36415; 80048; 80053; 80061; 80076; 80143; 80179; 80307; 82607; 82746; 83036; 84443; 85025; 87635; 93005; 99285; S9485

== ENCOUNTER 2024-04-11 14:37 | Emergency (ER) | payer MEDICARE, SELFPAY ==
--- NOTE | ~2024-04-11 | XR_ITS ---
CLINICAL HISTORY: cough 1 view chest x-ray. Comparison: 02/04/2022 Findings: No consolidation or effusion Heart size normal No acute fracture Impression: Lungs are clear. This document has been electronically signed by: Andrew Brown MD on 04/11/2024 15:28:30
[2024-04-11 15:01] VITALS: BP 125/76; PULSE 88; RESP 18; TEMP 36.8; O2SAT 97; BMI 43.0
--- NOTE | 2024-04-11 15:01 | ED_ITS ---
HPI - General Adult General Chief complaint: Upper Respiratory Symptoms Stated complaint: SOB cough yellow mucus Time Seen by Provider: 04/11/24 18:29 Source: patient Mode of arrival: ambulatory Limitations: no limitations History of Present Illness ED Provider: HPI narrative: Patient's history of asthma been sick for last 6 days with cough with mucopurulent phlegm which is getting worse no fever feels tight in the chest no other family member sick Related Data Previous Rx's ?Medication ?Instructions ?Recorded hydrocortisone 1 % topical ointment 1 appl topical BID 30 days #10 04/26/22 grams cyclobenzaprine 5 mg tablet 5 mg PO TID #90 tabs 05/24/22 mirtazapine 30 mg tablet 30 mg PO BEDTIME #30 tabs 05/24/22 olanzapine 7.5 mg tablet 7.5 mg PO BEDTIME #30 tabs 05/24/22 propranolol 20 mg tablet 20 mg PO TID #90 tabs 05/24/22 ropinirole 0.25 mg tablet 0.25 mg PO BEDTIME #30 tabs 05/24/22 trazodone 50 mg tablet 50 mg PO BEDTIME PRN Insomnia #30 05/24/22 tabs clonazepam 1 mg tablet 1 mg PO DAILY PRN anxiety 30 days 10/15/22 #30 tabs baclofen 10 mg tablet 10 mg PO BID PRN for muscle spasm 11/11/22 #60 tabs omeprazole 20 mg capsule,delayed See Rx Instructions .Route 12/06/22 release .COMPLEX #180 caps albuterol sulfate 90 mcg/actuation 2 puff inhalation Q6H PRN 05/10/23 aerosol inhaler shortness of breath or wheezing #6.7 grams cefuroxime axetil 500 mg tablet 500 mg PO BID 7 days #14 tabs 04/11/24 prednisone 20 mg tablet 40 mg (2 x 20 mg) PO DAILY #10 tabs 04/11/24 Allergies Allergy/AdvReac Type Severity Reaction Status Date / Time codeine [CODEINE] Allergy Intermediate RASH, Verified 04/11/24 15:03 shortness of breath ibuprofen [IBUPROFEN] Allergy Intermediate RASH/HIVES, Verified 04/11/24 15:03 redness and itching latex Allergy Intermediate Redness of Verified 04/11/24 15:03 Skin, Itching Review of Systems 2 Review of Systems: Yes all other systems are reviewed and are negative PMFSH Past Medical History Medical History Elevation of adrenocorticotropic hormone (ACTH) Overweight (BMI 25.0-29.9) Early satiety Cataracts, bilateral Mixed hyperlipidemia Cervical disc disease Superficial gastritis without hemorrhage Weight loss, non-intentional Anxiety and depression Polyarthralgia Knee pain, right Cervical pain Obesity (BMI 30-39.9) Smoker Epigastric pain Anxiety Erectile dysfunction GERD (gastroesophageal reflux disease) Bipolar disorder Genital herpes Chronic low back pain Surgical History H/O eye surgery History of esophagogastroduodenoscopy (EGD) Hx of colonoscopy History of inguinal hernia repair Family History Family History Father Medical history unknown Mother Chronic mental illness Schizophrenia Diabetes Kidney problem Dialysis patient HTN (hypertension) Family/Other FH: mental illness Maternal Grandfather Prostate cancer Paternal Grandfather Lung cancer Social History Social History Household Members: None Household Members Other:: Pt reports daughter(Sabrina) and his grandson Housing: Other Housing Other:: currently residing at [facility] Are you a primary care specialist to a significant other at home: No Do you presently have visiting nurse or other home services: No Alcohol intake: never Patient Tobacco Use Status: Tobacco use Unknown Tobacco use type: Cigarette Cigarettes Per Day: 4 Years Smoked: 40 Second Hand Smoke Exposure: No Substance Use Type: Crack/Cocaine Advance Directives: No Advance Directives Information Provided: Yes Do you have a plan to hurt others: No Plan service: No Current occupational status: disabled Sexual orientation: Straight/Heterosexual Physical Exam ED Vital Signs: Vital Signs - 24 hr 04/11/24 15:01 Temperature 98.3 F Pulse Rate 88 Respiratory Rate 18 Blood Pressure 125/76 Pulse Oximetry 97 Oxygen Delivery Method Room Air BMI result Body Mass Index 43.0 Appearance: Alert. Oriented X3. No acute distress. ENT: Pharynx normal. Oral Mucosa moist Neck: Normal inspection. Neck supple. CVS: Normal heart rate and rhythm. Pulses normal. Respiratory: No respiratory distress. Equal air entry bilateral, prolonged expiration Skin: Skin warm and dry. Normal skin color. Normal skin turgor. Extremities: No lower extremity edema. Neuro: Oriented X 3. Course Course Course Narrative: RME, this is a rapid medical exam performed by Roland Murray please refer to primary provider for complete H&P- 58-year-old male past medical history significant for cocaine use disorder, depression, obesity, gastritis, GERD, bipolar disorder who presents for evaluation of cough, chest pain for 1 week. He is well-appearing, plan for labs, chest x-ray, viral swabs Medications Administered Discontinued Medications Generic Name Dose Route Start Last Admin Trade Name Freq PRN Reason Stop Dose Admin Cefuroxime Axetil 500 mg 04/11/24 18:51 04/11/24 19:09 Cefuroxime Axetil 500 Mg Tablet PO 04/11/24 18:52 500 mg ONCE ONE Administration Albuterol Sulfate 2.5 mg/ 0 mg 04/11/24 18:51 04/11/24 19:34 Albuterol/Ipratropium 3 ml INHALE 04/11/24 18:52 3.5 dose ONCE ONE Administration Prednisone 40 mg 04/11/24 18:51 04/11/24 19:09 Prednisone 20 Mg Tablet PO 04/11/24 18:52 40 mg ONCE ONE Administration Medical Decision Making Medical Decision Making [facility] Narrative: Acute bronchitis with history of asthma expiratory wheezing with mucopurulent phlegm chest x-ray negative for pneumonia resident labs were stable will prescribe Ceftin and prednisone advised to continue use inhaler Lab Data [facility] Lab Attestation statement: I reviewed the patient's lab results. 04/11/24 16:48 04/11/24 16:48 Labs: Lab Results 04/11/24 Range/Units 16:48 WBC 9.6 (4.8-10.8) X10*3/uL RBC 5.13 (4.60-5.80) X10*6/uL Hgb 15.5 (14.0-18.0) g/dl Hct 45.8 (42.0-52.0) % MCV 89.3 (80.0-98.0) fL MCH 30.2 (27.0-33.0) pg MCHC 33.8 (31.0-36.0) g/dl RDW 12.8 (11.0-16.0) % Plt Count 225 (160-400) X10*3/uL MPV 9.7 (9.4-12.4) fL Immature Gran % (Auto) 0.4 (0.0-0.4) % Neut % (Auto) 68.9 (45-73) % Lymph % (Auto) 18.8 L (20-40) % [place] % (Auto) 9.3 (2-11) % Eos % (Auto) 2.0 (0-4) % Baso % (Auto) 0.6 (0-2) % Lymph # (Auto) 1.8 (1.2-4.9) X10*3/uL [place] # (Auto) 0.9 (0.1-1.2) X10*3/uL Eos # (Auto) 0.2 (0.0-0.4) X10*3/uL Baso # (Auto) 0.1 (0.0-0.2) X10*3/uL Abs Immat Gran (auto) 0.04 H (0.00-0.03) X10*3/uL Absolute Neuts (auto) 6.6 (2.0-8.3) x10*3/uL Absolute Nucleated RBC 0.000 (0.0-0.012) X10*3/uL Nucleated RBC % (auto) 0.0 (0.0-0.2) /100WBC Sodium 139 (135-145) mmol/L Potassium 4.7 (3.3-5.1) mmol/L Chloride 112 H (96-108) mmol/L Carbon Dioxide 20 L (22-29) mmol/L Anion Gap 12 (12-20) BUN 12 (9-16) mg/dL Creatinine 0.87 (0.5-1.4) mg/dL Estim Creat Clear Calc 116.1 Estimated GFR > 60 Random Glucose 124 H (60-115) mg/dL Calcium 8.3 L D (8.4-10.2) mg/dL Total Bilirubin 0.4 (0.0-1.0) mg/dL AST 38 H (5-37) U/L ALT 26 (0-40) U/L Alkaline Phosphatase 74 (39-117) U/L Total Protein 7.0 (6.5-8.0) g/dL Albumin 3.5 (3.5-5.0) g/dL Lipase 10 (8-78) U/L Influenza Type A (PCR) NEGATIVE (Negative) Influenza Type B (PCR) NEGATIVE (Negative) RSV RNA Qual (PCR) NEGATIVE (Negative) SARS-CoV-2 RNA (RT-PCR) NEGATIVE (Negative) Independent Interpretation I performed an independent interpretation of an: Plain X-Ray Radiology Impression Discussion of test interpretation with radiology: I have reviewed the radiologist's reading. Radiologist Impression: NAD Discharge Plan Discharge Clinical Impression: Acute bronchitis Patient Disposition: Home, Self-Care Instructions: Acute Bronchitis (ED) Additional Instructions: Use your inhaler as advised Take antibiotic as prescribed Take prednisone as prescribed Follow the PCP if not better Prescriptions: New prednisone 20 mg tablet 40 mg PO DAILY Qty: 10 0RF cefuroxime axetil 500 mg tablet 500 mg PO BID 7 Days Qty: 14 0RF No Action clonazepam 1 mg tablet 1 mg PO DAILY PRN (Reason: anxiety) 30 Days Qty: 30 0RF baclofen 10 mg tablet 10 mg PO BID PRN (Reason: for muscle spasm) Qty: 60 0RF omeprazole 20 mg capsule,delayed release(DR/EC) See Rx Instructions .ROUTE .COMPLEX Qty: 180 0RF Dose Instruction: TOME CHATA CAPSULA DOS VECES AL [place]BORA Rx Instructions: TOME CHATA CAPSULA DOS VECES [place] albuterol sulfate 90 mcg/actuation HFA aerosol inhaler 2 puff inhalation Q6H PRN (Reason: shortness of breath or wheezing) Qty: 6.7 0RF hydrocortisone 1 % Ointment 1 appl topical BID 30 Days Qty: 10 0RF Protocol: Apply to: Apply to: bilat hands trazodone 50 mg Tablet 50 mg PO BEDTIME PRN (Reason: Insomnia) Qty: 30 0RF olanzapine 7.5 mg Tablet 7.5 mg PO BEDTIME Qty: 30 0RF ropinirole 0.25 mg Tablet 0.25 mg PO BEDTIME Qty: 30 0RF mirtazapine 30 mg Tablet 30 mg PO BEDTIME Qty: 30 0RF propranolol 20 mg Tablet 20 mg PO TID Qty: 90 0RF Protocol: Hold for SBP/HR < HOLD for SBP < : 90 HOLD for HR < : 60 cyclobenzaprine 5 mg Tablet 5 mg PO TID Qty: 90 0RF Interventions: ED Discharge Assessment Last Done: 04/11/24 19:42 Discharge Date/Time: 04/11/24 19:50 Print Language: Georgian
[2024-04-11 16:54] LABS: MANUAL DIFF FLAG NO
[2024-04-11 17:03] LABS: Imm Gran Abs Auto 0.04 X10*3/uL (0.00-0.03); Imm Gran Pct Auto 0.4 % (0.0-0.4); Mean Corpuscular Volume 89.3 fL (80.0-98.0); Neutrophils Percent Auto 68.9 % (45-73); PLT CLUMP 1; SCAN SMEAR FLAG 1
[2024-04-11 17:05] LABS: Basophils Absolute Auto 0.1 X10*3/uL (0.0-0.2); Basophils Percent Auto 0.6 % (0-2); Eosinophils Absolute Auto 0.2 X10*3/uL (0.0-0.4); Hematocrit 45.8 % (42.0-52.0); Hemoglobin 15.5 g/dl (14.0-18.0); Lymphocytes Absolute Auto 1.8 X10*3/uL (1.2-4.9); Lymphocytes Percent Auto 18.8 % (20-40); Mean Corpuscular HGB Conc 33.8 g/dl (31.0-36.0); Mean Corpuscular Hemoglobin 30.2 pg (27.0-33.0); Mean Platelet Volume 9.7 fL (9.4-12.4); Monocytes Absolute Auto 0.9 X10*3/uL (0.1-1.2); Monocytes Percent Auto 9.3 % (2-11); Neutrophils Absolute Auto 6.6 x10*3/uL (2.0-8.3); Red Blood Count 5.13 X10*6/uL (4.60-5.80); Red Cell Distribution Width 12.8 % (11.0-16.0)
[2024-04-11 17:40] LABS: Influenza A PCR NEGATIVE (Negative); Influenza B PCR NEGATIVE (Negative); Resp Syncy Virus RNA Qual PCR NEGATIVE (Negative); SARS COV2 PCR INHOUSE NEGATIVE (Negative)
[2024-04-11 17:41] LABS: Platelet Count 225 X10*3/uL (160-400); White Blood Count 9.6 X10*3/uL (4.8-10.8)
[2024-04-11 18:09] LABS: Alanine Aminotransferase 26 U/L (0-40); Albumin Level 3.5 g/dL (3.5-5.0); Alkaline Phosphatase 74 U/L (39-117); Anion Gap 12 (12-20); Aspartate Amino Transferase 38 U/L (5-37); Bilirubin Total 0.4 mg/dL (0.0-1.0); Blood Urea Nitrogen 12 mg/dL (9-16); Calcium 8.3 mg/dL (8.4-10.2); Carbon Dioxide 20 mmol/L (22-29); Chloride 112 mmol/L (96-108); Creatinine Clr Calc Pharmacy 116.1; Estimated Glomerular Filt Rate > 60; Glucose Random 124 mg/dL (60-115); Lipase 10 U/L (8-78); Potassium 4.7 mmol/L (3.3-5.1); Sodium 139 mmol/L (135-145)
[2024-04-11] MEDS: predniSONE 20 MG TABLET 40 MG PO (19:09)
[2024-04-11] MEDS: cefuroxime axetiL 500 MG TABLET PO (19:09)
[2024-04-11] MEDS: Albuterol Sulfate 2.5 MG, Albuterol/Iprat 2.5/0.5MG 3 ML 3 ML INHALE (19:34)
[2024-04-11 19:36] VITALS: PULSE 80; RESP 18; O2SAT 97
[2024-04-11 19:42] VITALS: BP 132/66; PULSE 83; RESP 22; TEMP 36.6; O2SAT 97
[2024-04-11 19:49] VITALS: BP 132/66; PULSE 83; RESP 22; TEMP 36.6; O2SAT 97
== END 2024-04-11 19:50 | disposition home or self-care (01) ==
PROVIDERS: Physician Assistant; Emergency Provider Internal Medicine
DX: J20.9 Acute bronchitis, unspecified (principal); Z03.818 Encounter for observation for suspected exposure to other biological agents ruled out; R05.9 Cough, unspecified
CPT/HCPCS: 0241U; 71046; 80053; 83690; 85025; 94640; 99283; 99284

== ENCOUNTER → 2024-04-11 15:03 | Outpatient (BNV) | payer OTHER, SELFPAY | PROVIDERS: Visit Provider Radiology Diagnostic Radiology | DX: R06.2 Wheezing (principal) | CPT/HCPCS: 71046 ==